=== PATIENT | male | born 1950 | race Caucasian/White ===

== ENCOUNTER 2017-02-13 23:59 | Inpatient (IN) | payer OTHER, MEDICARE ==
[~2017-02-13] VITALS: Ht 182.9 cm; Wt 73.7 kg
[~2017-02-13 23:59] MED LIST: ALAV10TA10 PO; ASPI-110 PO; ATOR1TAB18 PO; BACL10TA PO; CARB200T PO; FLUT1SPR5 EACH NARE; GABA800T PO; HYDR-3366 PO; MIRA33504 PO; MORP1TAB25 PO; OSCA200T PO; SODI325T PO; VENTAER INH; VITA100018 PO
[2017-02-14] VITALS (8 sets, daily range): BP systolic 111–147; BP diastolic 59–84; PULSE 81–121; RESP 12–18; TEMP 96–100.5; O2SAT 92–97
[2017-02-14] MEDS ORDERED: SODIUM CHLOR 0.9% 1000 ML INJ 1,000 ML IV SCH (00:15)
[2017-02-14] MEDS ORDERED: ONDANSETRON HCL 4 MG/2 ML VIAL IV PUSH ONE ×2 (00:15→12:00)
[2017-02-14] MEDS ORDERED: MORPHINE SULFATE 4 MG/ML INJ IV PUSH ONE (00:15)
--- NOTE | 2017-02-14 00:50 | RADRPT ---
EXAM DATE/TIME: 02/14/2017 00:31 [facility] COMPARISON: CHEST SINGLE AP, July 12, 2016, 15:37. INDICATIONS : Shortness of breath. MEDICAL HISTORY : Hypercholesterolemia. Hypertension. COPD SURGICAL HISTORY : Fusion, cervical. ENCOUNTER: Initial ACUITY: 1 day PAIN SCORE: 0/10 LOCATION: Bilateral chest FINDINGS: Portable AP views of the chest demonstrate a normal-sized cardiac silhouette with calcification of th e aorta. Multiple lines overlie the patient. There are coarse interstitial opacities bilaterally. No effusion, consolidation, or pneumothorax is identified. Bones and soft tissues demonstrate no acute f inding. There is rightward convex curvature of the thoracic spine. CONCLUSION: Stable interstitial prominence bilaterally. Otherwise, no acute finding is identified. Brodie Jenkins MD on February 14, 2017 at 0:47 Board Certified Radiologist. This report was verified electronically.
--- NOTE | 2017-02-14 00:58 | RADRPT ---
EXAM DATE/TIME: 02/14/2017 00:27 [facility] COMPARISON: No previous studies available for comparison. INDICATIONS : Right hip pain post fall. MEDICAL HISTORY : Hypercholesterolemia. Hypertension. COPD SURGICAL HISTORY : Fusion, cervical. ENCOUNTER: Initial ACUITY: 1 day PAIN SCORE: 8/10 LOCATION: Right pelvis FINDINGS: AP view of the pelvis with 2 views of the right hip demonstrate undermineralization of the bones. The re is a fracture of the right proximal femur in the bases cervical region and intertrochanteric regio n. The fragments are mildly displaced. No other fracture is identified. No soft tissue abnormality is visualized. CONCLUSION: There is an acute fracture in the basi-cervical/intertrochanteric region. Brodie Jenkins MD on February 14, 2017 at 0:56 Board Certified Radiologist. This report was verified electronically.
[2017-02-14 01:18] LABS: AUTOMATED NEUTROPHIL # 4.1 TH/MM3 (1.8-7.7); BASOPHIL # 0.1 TH/MM3 (0-0.2); BASOPHIL % 2.3 % (0.0-2.0); EOSINOPHIL # 0.2 TH/MM3 (0-0.4); EOSINOPHIL % 3.3 % (0.0-4.0); HEMATOCRIT 38.1 % (39.0-51.0); HEMO FLAGS DIFF FINAL; LYMPH % 18.8 % (9.0-44.0); LYMPHOCYTE # 1.1 TH/MM3 (1.0-4.8); MEAN CELL VOLUME 88.2 FL (80.0-100.0); MEAN CORPUSCULAR HEMOGLOBIN 30.4 PG (27.0-34.0); MEAN CORPUSCULAR HGB CONC 34.5 % (32.0-36.0); MONO % 8.3 % (0.0-8.0); NEUT % 67.3 % (16.0-70.0); PLATELET COUNT 180 TH/MM3 (150-450); RED BLOOD COUNT 4.33 MIL/MM3 (4.50-5.90); RED CELL DISTRIBUTION WIDTH 13.2 % (11.6-17.2); WHITE BLOOD COUNT 6.1 TH/MM3 (4.0-11.0)
[2017-02-14 01:29] LABS: APTT (PATIENT) 30.3 SEC (24.3-30.1); PROTHROMBIN TIME - PATIENT 11.4 SEC (9.8-11.6)
[2017-02-14] MEDS ORDERED: MELO-1 PO (01:32)
[2017-02-14] MEDS ORDERED: CLAR10CA3 PO (01:32)
--- NOTE | 2017-02-14 01:36 | PD ---
HPI Chief Complaint: Hip Injury Time Seen by Provider: 00:11 Travel History International Travel<30 days: No Contact w/Intl Traveler<30days: No Traveled to known affect area: No History of Present Illness HPI The patient is a 66 year old male who presents to the [facility] emergency department with a history of reportedly tripping and falling over a carpet, landing on his right side prior to arrival. The patient was brought in by ambulance services. The patient reports having right hip pain. The patient arrives awake and alert. He denies any head or losing consciousness. He denies having any neck pain, paresthesias, numbness, or weakness to his extremities. Upon ambulance services arrival the patient was noted to have O2 saturations of 89-90% on room air. The patient appeared to be in no acute distress. The patient does have a reported history of COPD. He reports that he last used his inhaler prior to arrival. The patient was placed on 2 L nasal cannula O2 prior to her arrival and his O2 saturation on arrival is 97%. On review of systems, the patient denies having any fevers or chills, worsening cough or congestion, neck pain, chest pain, shortness of breath, abdominal pain , vomiting, diarrhea, urinary symptoms, or new neurologic symptoms. The patient reports that he gets around with the use of a cane to steady his gait. The patient reports that he does take a low-dose aspirin daily. PFS Past Medical History Narrative Medical The patient's past medical history is significant for degenerative disc disease , COPD, hypertension, hyperlipidemia, trigeminal neuralgia. Hx Anticoagulant Therapy: No Arthritis: Yes Anxiety: Yes Depression: No Cardiovascular Problems: Yes (HTN) High Cholesterol: Yes COPD: Yes Endocrine: No Genitourinary: No Hypertension: Yes Immune Disorder: No Musculoskeletal: Yes Neurologic: Yes (trigeminal neuralgia) Psychiatric: Yes Respiratory: Yes Sleep Apnea: No Past Surgical History Narrative Surgical The patient's past surgical history is significant for a pilonidal cyst removal , spinal surgery 5. Body Medical Devices: SCREWS IN THE SPINE Social History Alcohol Use: No Tobacco Use: Yes (half a pack per day) Substance Use: No Allergies-Medications (Allergen,Severity, Reaction): Coded Allergies: No Known Allergies (Unverified , 07/12/16) Reported Meds & Prescriptions Reported Meds & Active Scripts Active Reported Meloxicam 15 Mg Tab 15 Mg PO DAILY Claritin (Loratadine) 10 Mg Cap 10 Mg PO DAILY Flonase Nasal [place] (Fluticasone Nasal [place]) 50 Mcg/Act [place] 2 Puff EACH NARE HS Ventolin Hfa 18 GM Inh (Albuterol Sulfate) 90 Mcg/Act Aer 2 Puff INH Q4H PRN Carbamazepine 200 Mg Tab 400 Mg PO BID Gabapentin 800 Mg Tab 800 Mg PO QID Atorvastatin (Atorvastatin Calcium) 80 Mg Tab 80 Mg PO HS Aspirin 81 (Aspirin) 81 Mg Tabdr 81 Mg PO HS Baclofen 10 Mg Tab 10 Mg PO QID Carbamazepine 200 Mg Tab 200 Mg PO HS [place] (Hydrocodone-Acetaminophen) 10-325 Mg Tab 1 Tab PO Q4HR PRN Review of Systems Except as stated in HPI: all other systems reviewed are Neg General / Constitutional: No: Fever Eyes: No: Visual changes HENT: No: Headaches Cardiovascular: Positive: Dyspnea on exertion (chronic dyspnea on exertion related to COPD), No: Chest Pain or Discomfort Respiratory: No: Shortness of Breath Gastrointestinal: No: Nausea, Vomiting, Diarrhea, Abdominal Pain Genitourinary: No: Dysuria Musculoskeletal: Positive: Myalgias, Arthralgias, Limited ROM, Pain Skin: No Rash Neurologic: Positive: Weakness (generalized weakness over the last week), No: Focal Abnormalities, Headache, Change in Mentation, Slurred Speech, Sensory Disturbance Psychiatric: No: Depression Endocrine: No: Polydipsia Hematologic/Lymphatic: No: Easy Bruising Physical Exam Narrative General: The patient is a well-developed well-nourished male in no acute distress. Head and Neck exam: Head is normocephalic atraumatic. Eyes: EOMI, pupils are equal round and reactive to light. Nose: Midline septum with pink mucous membranes Mouth: Dentition unremarkable. Moist mucus membranes. Posterior oropharynx is not erythematous. No tonsillar hypertrophy. Uvula midline. Airway patent. Neck: No palpable lymphadenopathy. No nuchal rigidity. No thyromegaly. Cardiovascular: Regular rate and rhythm without murmurs, gallops, or rubs. No spinous process tenderness to palpation. No step-off or crepitus. No erythema or ecchymosis. Lungs: Clear to auscultation bilaterally. No wheezes, rhonchi, or rales. Abdomen: Soft, without tenderness to palpation in all 4 quadrants of the abdomen. No guarding, rebound, or rigidity. Normal bowel sounds are audible. No tenderness on palpation of McBurney's point. Negative Vancleve sign. Extremities: No clubbing, cyanosis, or edema. 2+ pulses in all 4 extremities. The area of interest is the right hip and leg. The patient has no shortening. The patient' s right hip is slightly externally rotated. The patient has no pain in his knee , ankle, or foot. The patient has intact sensation over his toes. The patient has full range of motion of his knee, ankle, and foot. The patient does however have pain with internal and external rotation of his right hip. Back: No spinous process tenderness to palpation. No step-off or crepitus. No costovertebral angle tenderness to palpation. Neurologic Exam: Grossly nonfocal. Skin Exam: No rash noted. Intact skin that is warm and dry. Data Data Last Documented VS Vital Signs Date Time Temp Pulse Resp B/P Pulse Ox O2 Delivery O2 Flow Rate FiO2 02/14/17 01:14 18 97 Nasal Cannula 2 02/14/17 00:04 98.4 81 128/59 Orders Electrocardiogram (02/14/17 00:11) Complete Blood Count With Diff (02/14/17:) Comprehensive Metabolic Panel (02/14/17:11) Creatine Kinase (Cpk) (02/14/17:11) Ckmb (Isoenzyme) Profile (02/14/17:11) Troponin I (02/14/17:11) B-Type Natriuretic Peptide (02/14/17:11) Prothrombin Time / Inr (Pt) (02/14/17:11) Act Partial Throm Time (Ptt) (02/14/17:11) Lipase (02/14/17:11) Urinalysis - C+S If Indicated (02/14/17:11) Magnesium (Mg) (02/14/17:11) Chest, Single Ap (02/14/17:11) Iv Access Insert/Monitor (02/14/17:11) Ecg Monitoring (02/14/17:11) Oximetry (02/14/17:11) Sodium Chlor 0.9% 1000 Ml Inj (Ns 1000 M (02/14/17 00:15) Morphine Inj (Morphine Inj) (02/14/17 00:15) Ondansetron Inj (Zofran Inj) (02/14/17 00:15) Hip, Uni(Ap&Lat) W Ap Pelvis (02/14/17 ) CKMB (02/14/17 00:20) CKMB% (02/14/17 00:20) Labs Laboratory Tests Test 02/14/17 00:20 White Blood Count 6.1 TH/MM3 Red Blood Count 4.33 MIL/MM3 Hemoglobin 13.2 GM/DL Hematocrit 38.1 % Mean Corpuscular Volume 88.2 FL Mean Corpuscular Hemoglobin 30.4 PG Mean Corpuscular Hemoglobin 34.5 % Concent Red Cell Distribution Width 13.2 % Platelet Count 180 TH/MM3 Mean Platelet Volume 8.0 FL Neutrophils (%) (Auto) 67.3 % Lymphocytes (%) (Auto) 18.8 % Monocytes (%) (Auto) 8.3 % Eosinophils (%) (Auto) 3.3 % Basophils (%) (Auto) 2.3 % Neutrophils # (Auto) 4.1 TH/MM3 Lymphocytes # (Auto) 1.1 TH/MM3 Monocytes # (Auto) 0.5 TH/MM3 Eosinophils # (Auto) 0.2 TH/MM3 Basophils # (Auto) 0.1 TH/MM3 CBC Comment DIFF FINAL Differential Comment Prothrombin Time 11.4 SEC Prothromb Time International 1.0 RATIO Ratio Activated Partial 30.3 SEC Thromboplast Time Sodium Level 130 MEQ/L Potassium Level 3.6 MEQ/L Chloride Level 91 MEQ/L Carbon Dioxide Level 29.9 MEQ/L Anion Gap 9 MEQ/L Blood Urea Nitrogen 7 MG/DL Creatinine 0.70 MG/DL Estimat Glomerular Filtration 114 ML/MIN Rate Random Glucose 91 MG/DL Calcium Level 8.5 MG/DL Magnesium Level 2.0 MG/DL Total Bilirubin 0.4 MG/DL Aspartate Amino Transf 30 U/L (AST/SGOT) Alanine Aminotransferase 32 U/L (ALT/SGPT) Alkaline Phosphatase 101 U/L Total Creatine Kinase 364 U/L Troponin I LESS THAN 0.02 NG/ML Total Protein 6.1 GM/DL Albumin 3.6 GM/DL Lipase 54 U/L MDM Medical Decision Making Medical Screen Exam Complete: Yes Emergency Medical Condition: Yes Medical Record Reviewed: Yes Differential Diagnosis Right hip fracture, versus dislocation, versus pelvis fracture Narrative Course During the course of the patients emergency department visit, the patients history, examination, and differential diagnosis were reviewed with the patient. The patient had IV access obtained and blood work sent for analysis. The patient was placed on a equipment monitor phototypesetting with oximetry and blood pressure monitoring. The patient had an ECG done on arrival that shows a sinus rhythm heart rate of 81, no acute ST segment elevation or depression, QRS duration is 125 ms, QTC 403 ms. The patient was initially provided morphine 2 mg IV for pain, Zofran 4 mg IV for nausea, normal saline at 82 mL/h was started. The patients laboratory studies were reviewed and remarkable for white count of 6.1, hemoglobin 13.2, platelets 180 with 8.3 monocytes, INR is 1.0, PT 11.4, PTT 30.3 Radiology studies were reviewed and remarkable for a right intertrochanteric hip fracture, chest x-ray shows stable interstitial prominence bilaterally, otherwise no acute findings. A call was then placed out to the orthopedic physician on-call regarding this patient's case. The patients results were discussed with the patient, including the plan of care. I explained that further testing and/ or monitoring is indicated based on the patients history, examination, and/ or laboratory findings. Therefore, I recommended admission for additional evaluation. The patient expressed understanding and was agreeable with this plan. The patient was admitted to the hospital in stable condition and sent to a bed under the care of the [facility] hospitalist service. Physician Communication Physician Communication The patient's case was discussed with Dr. Katz at 1:35 AM. He did agree to see the patient in consultation. He requested that the patient be made nothing by mouth and admitted to the hospitalist service. The patient's case was discussed with Dr. Dee who did agree to admit the patient for further evaluation and treatment at this time. Diagnosis Primary Impression: Intertrochanteric fracture of right hip Qualified Code: S72.141A - Closed displaced intertrochanteric fracture of right femur, initial encounter Admitting Information Admitting Physician Requests: Samina Whyte MD Feb 14, 2017 01:36
[2017-02-14 01:40] LABS: ANION GAP 9 MEQ/L (5-15); AST (GOT) 30 U/L (15-37); BICARBONATE 29.9 MEQ/L (21.0-32.0); BLOOD UREA NITROGEN 7 MG/DL (7-18); CHLORIDE 91 MEQ/L (98-107); GLOMERULAR FILTRATION RATE 114 ML/MIN (>89); POTASSIUM 3.6 MEQ/L (3.5-5.1); SODIUM (NA) 130 MEQ/L (136-145)
[2017-02-14 01:47] LABS: ALKALINE PHOSPHATASE 101 U/L (45-117); ALT (GPT) 32 U/L (12-78); CREATINE KINASE 364 U/L (39-308); TOTAL BILIRUBIN ADULT 0.4 MG/DL (0.2-1.0)
[2017-02-14 02:00] LABS: CKMB 7.7 NG/ML (0.5-3.6)
[2017-02-14] MEDS ORDERED: NALOXONE HCL 0.4 MG/ML AMP IV PRN (02:15)
[2017-02-14] MEDS ORDERED: SODIUM CHLORIDE 0.9% FLUSH 10 ML FLUSH IV FLUSH PRN (02:15)
[2017-02-14] MEDS: MORPHINE SULFATE 4 MG/ML INJ IV PUSH PRN ×2 (02:36→04:24)
[2017-02-14 04:26] LABS: GLUCOSE,URINE NEG (NEG); KETONE, URINE NEG (NEG); NITRITE,URINE NEG (NEG); PH, URINE 6.5 (5.0-8.5); URINE COLOR YELLOW (YELLW/STRAW)
[2017-02-14 04:29] LABS: BLOOD, URINE TRACE (NEG)
[2017-02-14 04:30] LABS: CALCIUM OXALATE CRYSTALS,URINE RARE /hpf; COMMENT (UR) CULT NOT INDICATED; CULTURE IF INDICATED CULT NOT INDICATED; MUCUS URINE FEW /lpf (OCC)
[2017-02-14] MEDS ORDERED: POVIDONE IODINE 5% (ANTISEPSIS KIT) 4 APPLICATIONS EACH NARE PRN (04:30)
[2017-02-14] MEDS ORDERED: CHLORHEXIDINE GLUCONATE 2 % 1 PACK (2 CLOTHS) TOPICAL PRN (04:30)
[2017-02-14] MEDS ORDERED: INSULIN HUMAN REGULAR 1,000 UNITS/10 ML VIAL SQ PRN (04:30)
[2017-02-14] MEDS ORDERED: SODIUM CHLORID 0.9% 500 ML IV PRN (04:30)
[2017-02-14] MEDS ORDERED: LACTATED RINGER'S 1000 ML IV PRN (04:30)
--- NOTE | 2017-02-14 05:19 | HHI.HP ---
[facility] Ad[facility] Diagnosis Right hip intertrochanteric fx Diagnoses: (1) Intertrochanteric fracture of right hip Chief Complaint: Fall at home with right hip pain Travel History International Travel<30 Days: No Contact w/Intl Traveler <30 Da: No Traveled to Known Affected Are: No History of Present Illness The patient was at home and turned around and fell down. He reports that he spent about an hour on the floor before he was able to call for help - right hip was painful Denies chest pain, shortness of breath, dizziness, palpitations, fever, n/v/d, dysuria, hematuria, black stool or red stool. Denies history of anesthesia complications Review of Systems Except as stated in HPI: all other systems reviewed are Neg Past Family Social History Past Medical History Hypertension COPD - not oxygen dependent Denies diabetes mellitus, CAD, aortic aneurysm, liver problems like hepatitis or cirrhosis, kidney problems, DVT, PE, CVA, seizures, thyroid problems, cancers , or prostate issues . Past Surgical History Oral surgery . Reported Medications Reported Meds & Active Scripts Active Reported Meloxicam 15 Mg Tab 15 Mg PO DAILY Claritin (Loratadine) 10 Mg Cap 10 Mg PO DAILY Flonase Nasal [place] (Fluticasone Nasal [place]) 50 Mcg/Act [place] 2 Puff EACH NARE HS Ventolin Hfa 18 GM Inh (Albuterol Sulfate) 90 Mcg/Act Aer 2 Puff INH Q4H PRN Carbamazepine 200 Mg Tab 400 Mg PO BID Gabapentin 800 Mg Tab 800 Mg PO QID Atorvastatin (Atorvastatin Calcium) 80 Mg Tab 80 Mg PO HS Aspirin 81 (Aspirin) 81 Mg Tabdr 81 Mg PO HS Baclofen 10 Mg Tab 10 Mg PO QID Carbamazepine 200 Mg Tab 200 Mg PO HS [place] (Hydrocodone-Acetaminophen) 10-325 Mg Tab 1 Tab PO Q4HR PRN . Allergies: Coded Allergies: No Known Allergies (Unverified , 07/12/16) Active Ordered Medications Current Medications Sodium Chloride (NS 1000 ml Inj) 1,000 ml @ 84 mls/hr [id number] IV Last administered on 02/14/17 01:16; Start 02/14/17 at 00:15 Morphine Sulfate (Morphine Inj) 2 mg ONCE ONCE IV PUSH Last administered on 01:16; Start 02/14/17 at 00:15; Stop 02/14/17 at 00:16; Status DC Ondansetron HCl (Zofran Inj) 4 mg ONCE ONCE IV PUSH Last administered on 01:16; Start 02/14/17 at 00:15; Stop 02/14/17 at 00:16; Status DC Sodium Chloride (NS Flush) 2 ml UNSCH PRN IV FLUSH FLUSH AFTER USING IV ACCESS ; Start 02/14/17 at 02:15 Sodium Chloride (NS Flush) 2 ml BID IV FLUSH ; Start 02/14/17 at 09:00 Naloxone HCl (Narcan Inj) 0.4 mg UNSCH PRN IV SEE LABEL COMMENTS; Start at 02:15 Morphine Sulfate 2 mg 2 mg Q3H PRN IV PUSH pain >5 Last administered on 04:24; Start 02/14/17 at 02:15 Lactated Ringer's 1,000 ml @ 30 mls/hr Q24H PRN IV SEE LABEL COMMENTS; Start at 04:30; Stop 02/17/17 at 04:29 Sodium Chloride (NS 500 ml Inj) 500 ml @ 30 mls/hr [id number] PRN IV SEE LABEL COMMENTS; Start 02/14/17 at 04:30; Stop 02/17/17 at 04:29 Povidone Iodine (Betadine 5% Antisepsis Kit) 1 applic DELIVERY TABLE OPERATOR PRN EACH NARE SEE LABEL COMMENTS; Start 02/14/17 at 04:30; Stop 02/17/17 at 04:29 Chlorhexidine Gluconate (Chlorhexidine 2% Cloth) 3 pack DELIVERY TABLE OPERATOR PRN TOPICAL SEE LABEL COMMENTS; Start 02/14/17 at 04:30; Stop 02/17/17 at 04:29 Insulin Human Regular (NovoLIN R INJ) See Protocol Table ... DELIVERY TABLE OPERATOR PRN SQ SEE PROTOCOL TABLE; Start 02/14/17 at 04:30; Stop 02/17/17 at 04:29 . Family History Cancer Son from complications relating to ALS MS . Social History Tobacco: smokes 1 1/2 PPD Alcohol: denies Illicit drugs: denies . Physical Exam Vital Signs Vital Signs Date Time Temp Pulse Resp B/P Pulse Ox O2 Delivery O2 Flow Rate FiO2 02/14/17 04:50 97.9 114 18 147/83 92 02/14/17 03:30 Nasal Cannula 2.00 02/14/17 01:14 18 97 Nasal Cannula 2 02/14/17 00:10 98 Nasal Cannula 2 02/14/17 00:04 98.4 81 18 128/59 97 Physical Exam GENERAL: This is a pale-appearing male patient, in no apparent distress. SKIN: No rashes, ecchymoses or lesions. Cool and dry. HEAD: Atraumatic. Normocephalic. EYES: No scleral icterus. No injection or drainage. ENT: Nose without bleeding, purulent drainage. NECK: Trachea midline. No JVD or lymphadenopathy. CARDIOVASCULAR: Regular rate and rhythm without murmurs, gallops, or rubs. RESPIRATORY: Clear to auscultation. Breath sounds equal bilaterally. No wheezes , rales, or rhonchi. GASTROINTESTINAL: Abdomen soft, non-tender, nondistended. No guarding. MUSCULOSKELETAL: Extremities without clubbing, cyanosis, or edema. No calf tenderness. NEUROLOGICAL: Awake and alert. Motor and sensory grossly within normal limits. Normal speech. . . Laboratory Laboratory Tests Test 02/14/17 02/14/17 00:20 03:35 White Blood Count 6.1 Red Blood Count 4.33 Hemoglobin 13.2 Hematocrit 38.1 Mean Corpuscular Volume 88.2 Mean Corpuscular Hemoglobin 30.4 Mean Corpuscular Hemoglobin 34.5 Concent Red Cell Distribution Width 13.2 Platelet Count 180 Mean Platelet Volume 8.0 Neutrophils (%) (Auto) 67.3 Lymphocytes (%) (Auto) 18.8 Monocytes (%) (Auto) 8.3 Eosinophils (%) (Auto) 3.3 Basophils (%) (Auto) 2.3 Neutrophils # (Auto) 4.1 Lymphocytes # (Auto) 1.1 Monocytes # (Auto) 0.5 Eosinophils # (Auto) 0.2 Basophils # (Auto) 0.1 CBC Comment DIFF FINAL Differential Comment Prothrombin Time 11.4 Prothromb Time International 1.0 Ratio Activated Partial 30.3 Thromboplast Time Sodium Level 130 Potassium Level 3.6 Chloride Level 91 Carbon Dioxide Level 29.9 Anion Gap 9 Blood Urea Nitrogen 7 Creatinine 0.70 Estimat Glomerular Filtration 114 Rate Random Glucose 91 Calcium Level 8.5 Magnesium Level 2.0 Total Bilirubin 0.4 Aspartate Amino Transf 30 (AST/SGOT) Alanine Aminotransferase 32 (ALT/SGPT) Alkaline Phosphatase 101 Total Creatine Kinase 364 Creatine Kinase MB 7.7 Creatine Kinase MB % 2.1 Troponin I LESS THAN 0.02 B-Type Natriuretic Peptide 25 Total Protein 6.1 Albumin 3.6 Lipase 54 Urine Color YELLOW Urine Turbidity CLEAR Urine pH 6.5 Urine Specific [place] 1.008 Urine Protein NEG Urine Glucose (UA) NEG Urine Ketones NEG Urine Occult Blood TRACE Urine Nitrite NEG Urine Bilirubin NEG Urine Urobilinogen 1.0 Urine Leukocyte Esterase NEG Urine RBC 11 Urine WBC 1 Urine Calcium Oxalate Crystals RARE Urine Mucus FEW Microscopic Urinalysis Comment CULT NOT INDICATED Result Diagram: 02/14/17 0020 02/14/17 0020 Imaging Last Impressions Chest X-Ray 02/14/17 0011 Signed Impressions: Service Date/Time: Tuesday, February 14, 2017 00:31 - CONCLUSION: Stable interstitial prominence bilaterally. Otherwise, no acute finding is identified. Brodie Jenkins MD Hip and Pelvis X-Ray 02/14/17 0000 Signed Impressions: Service Date/Time: Tuesday, February 14, 2017 00:27 - CONCLUSION: There is an acute fracture in the basi-cervical/intertrochanteric region. Brodie Jenkins MD . Assessment and Plan Problem List: (1) Intertrochanteric fracture of right hip ICD Code: S72.141A Status: Acute Assessment and Plan 66 y/o who presented following a fall at home and is found to have a right intertrochanteric hip fracture and hyponatremia Right hip fracture - intertrochanteric - Hip/Pelvis XRay with acute fracture in the basi-cervical/intertrochanteric region - consult orthopedic surgery - NPO - Bed rest - Dilaudid 0.5 mg IV q3h PRN Hyponatremia - Sodium 130 on admission - s/w sodium levels on prior visits - NS at 84 cc/hr - recheck bmp in a.m and follow trends in sodium levels DVT prophylaxis - SCDs/TEDs . This note was transcribed by keke [Denise Mendoza]. I, Dr. Martha Dee personally performed the history, physical exam, and medical decision making; and confirmed the accuracy of the information in the transcribed note. Authenticated by Dr. Martha Dee on 02/14/17 0550 Discussed Condition With ER physician, RN, and patient . Physician Certification 2 Midnight Certification Type: Admission for Inpatient Services Order for Inpatient Services The services are ordered in accordance with Medicare regulations or non- Medicare payer requirements, as applicable. In the case of services not specified as inpatient-only, they are appropriately provided as inpatient services in accordance with the 2-midnight benchmark. Estimated LOS (days): 3 days is the estimated time the patient will need to remain in the hospital, assuming treatment plan goals are met and no additional complications. Post-Hospital Plan: Not yet determined Problem Qualifiers (1) Intertrochanteric fracture of right hip: Qualified Code: S72.141A - Closed displaced intertrochanteric fracture of right femur, initial encounter Denise Mendoza Feb 14, 2017 05:19 Martha Dee MD Feb 21, 2017 02:26
[2017-02-14] MEDS ORDERED: HYDROmorphone HCL PF 1 MG/ML VIAL IV PUSH PRN (06:00)
[2017-02-14] MEDS ORDERED: GENTAMICIN SULFATE 80 MG/2 ML VIAL ONE (07:01)
[2017-02-14] MEDS ORDERED: ACETAMINOPHEN 1000 MG/100 ML VIAL IV ONE (07:09)
[2017-02-14] MEDS ORDERED: MIDAZOLAM HCL 2 MG/2 ML VIAL ONE (07:09)
[2017-02-14] MEDS ORDERED: DEXAMETHASONE SOD PHOS 4 MG/ML VIAL ONE (07:10)
[2017-02-14] MEDS ORDERED: SODIUM CHLOR 0.9% 250 ML INJ 250 ML ONE (07:28)
[2017-02-14] MEDS ORDERED: ceFAZolin 2 GM PREMIX 50 ML ONE (07:28)
[2017-02-14] MEDS ORDERED: VANCOMYCIN HCL 1000 MG VIAL ONE (07:28)
--- NOTE | 2017-02-14 08:11 | PD.OP ---
cc: Alon Brambila MD Operative Report Date of Surgery: Feb 14, 2017 Preoperative Diagnosis: Right hip intertrochanteric fracture Postoperative Diagnosis: Procedure: Right hip reduction and intramedullary nail fixation Anesthesia: Gen. Surgeon: Alon Brambila Windows Vmware Engineer(s): ODIN Del Rio PA-C The surgical procedure was assisted by my physician advertising assistant manager. My P.A. presence was necessary throughout this case for the manipulation and positioning of the surgical extremity. My P.A. was assisting me throughout the duration of this procedure. The skill set of a physician advertising assistant manager was medically necessary to complete this procedure. During the surgical case the quality control tech was working at the back table and the physician advertising assistant manager was directly assisting me. Operation and Findings: Implants used: [11]mm 130 Synthes TFNA short troch nail Plan of activity: Weight-bear as tolerated Patient was seen and evaluated preoperatively. The patient has significant hip pain from intertrochanteric hip fracture. The risk and benefits of surgery were discussed in depth with the patient to include bleeding infection nonunion malunion and need for hip replacement painful hardware as well as medical competitions including but not stroke heart attack and . Informed consent was obtained. Operative site was marked. Patient was brought to the operating room and placed on fracture table. IV sedation was administered by anesthesiologist. Timeout procedure was performed. Hip and leg were prepped with alcohol followed by DuraPrep and draped in the usual sterile fashion. IV antibiotics were given prior to incision. Procedure began with reduction of fracture. Traction was applied. The leg was manipulated to achieve reduction. Excellent reduction was achieved. Fluoroscopy was used to confirm reduction. A three inch incision was made proximal to the trochanter. Subcutaneous tissue was dissected bluntly. Guidepin was placed at the tip of the trochanter and advanced into the femoral canal. Fluoroscopy confirmed appropriate guidepin placement. A opening reamer was placed over the guidepin. The Synthes TFNA nail was attached to the insertion handle. Nail was now placed through the tip of the trochanter into the femoral canal. Fluoroscopy confirmed appropriate nail placement. A second incision was made over the lateral thigh. Cannulas were placed through the insertion handle down to the femur. Guidepin was now placed through the femoral nail into the center of the femoral head. Fluoroscopy confirmed appropriate guidepin placement. Screw length was measured. Cannulated drill was placed over the guidepin. Appropriate length lag screw was now placed. Traction was released and compression was applied. The set screw was now tightened in dynamic mode. Using the insertion handle as a guide a distal interlocking screw was drilled and placed. Final fluoroscopy revealed well aligned fracture with well-placed hardware. Incision was closed with 3-0 Vicryl and sade. Sterile dressings were applied. Patient was awakened and transferred to recovery room. Alon Brambila MD Feb 14, 2017 08:11
[2017-02-14] MEDS ORDERED: SODIUM CHLORIDE 0.9% FLUSH 5 ML FLUSH IVF PRN (08:15)
[2017-02-14] MEDS ORDERED: DO NOT ADM ANY ANTICOAGULANT DRUGS PRN (08:24)
[2017-02-14] MEDS ORDERED: fentaNYL CITRATE 250 MCG/5 ML AMP ONE (08:56)
[2017-02-14] MEDS ORDERED: ERGOCALCIFEROL (VIT D2) 50,000 UNIT CAP PO ONE (09:00)
[2017-02-14] MEDS ORDERED: SODIUM CHLORIDE 0.9% FLUSH 10 ML FLUSH IV FLUSH SCH (09:00)
[2017-02-14] MEDS ORDERED: diphenhydrAMINE HCL 25 MG CAP PO PRN (09:00)
[2017-02-14] MEDS: CALCIUM/VITAMIN D 250 MG/125 U TAB PO SCH ×3 (09:00→17:41)
[2017-02-14] MEDS ORDERED: MORPHINE SULFATE 4 MG/ML INJ IV PUSH PRN (09:00)
--- NOTE | 2017-02-14 09:26 | HHI.PR ---
Subjective Remarks F/U Right femur fracture. Patient with minimal pain. Discussed with RN, patient with low-grade temperature and tachycardia. Denies palpitations, cough , UTI symptoms and diarrhea. Objective Vitals Vital Signs Date Time Temp Pulse Resp B/P Pulse Ox O2 Delivery O2 Flow Rate FiO2 02/14/17 09:00 93 14 129/77 100 Nasal Cannula 3 02/14/17 08:45 98 14 130/80 100 Nasal Cannula 3 02/14/17 08:27 98.0 96 14 131/76 100 Nasal Cannula 3 02/14/17 04:50 97.9 114 18 147/83 92 02/14/17 03:30 Nasal Cannula 2.00 02/14/17 01:14 18 97 Nasal Cannula 2 02/14/17 00:10 98 Nasal Cannula 2 02/14/17 00:04 98.4 81 18 128/59 97 I/O 02/13/17 02/13/17 02/13/17 02/14/17 02/14/17 02/14/17 07:00 15:00 23:00 07:00 15:00 23:00 Intake Total 0 ml 600 ml Output Total 500 ml 50 ml Balance -500 ml 550 ml Intake Oral 0 ml Other 600 ml Output Urine Total 500 ml 0 ml Estimated Blood Loss 50 ml # Bowel Movements 0 Result Diagram: 02/14/17 0020 02/14/17 0020 Imaging Last Impressions Chest X-Ray 02/14/17 0011 Signed Impressions: Service Date/Time: Tuesday, February 14, 2017 00:31 - CONCLUSION: Stable interstitial prominence bilaterally. Otherwise, no acute finding is identified. Brodie Jenkins MD Hip and Pelvis X-Ray 02/14/17 0000 Signed Impressions: Service Date/Time: Tuesday, February 14, 2017 00:27 - CONCLUSION: There is an acute fracture in the basi-cervical/intertrochanteric region. Brodie Jenkins MD Objective Remarks Well-developed, well-nourished in no distress Skin warm no rashes Normocephalic atraumatic HEENT pupils reactive to light Equal breath sounds clear to auscultation Regular rate and rhythm Abdomen soft nontender Extremities dry dressing right hip no edema Alert and oriented nonfocal Procedures Right hip reduction and intramedullary nail fixation A/P Problem List: (1) Intertrochanteric fracture of right hip ICD Code: S72.141A Status: Acute Assessment and Plan 66 y/o who presented following a fall at home and is found to have a right intertrochanteric hip fracture and hyponatremia Right hip fracture - intertrochanteric s/p repair POD day zero. Stable continue postoperative care with PT, wound care, incentive spirometry, pain management with Lortab and IV morphine and DVT prophylaxis with Lovenox Hyponatremia. This is chronic and likely related to Tegretol. Chest x-ray and previous head CT without acute findings. Asymptomatic. Continue to monitor Trigeminal neuralgia. Continue Tegretol COPD. Stable continue MDI Hypertension. Stable monitor with as needed clonidine and IV Vasotec Hyperlipidemia on statins. LFTs within normal limits Low-grade fever with tachycardia likely secondary to atelectasis. Incentive spirometry. We'll continue to monitor DVT prophylaxis - SCDs/TEDs and Lovenox . Discharge Planning DC when cleared by orthopedic surgery Problem Qualifiers (1) Intertrochanteric fracture of right hip: Qualified Code: S72.141A - Closed displaced intertrochanteric fracture of right femur, initial encounter Dwayne Carlin MD Feb 14, 2017 09:26
[2017-02-14] MEDS ORDERED: cloNIDine HCL 0.1 MG TAB PO PRN (09:30)
[2017-02-14] MEDS ORDERED: ACETAMINOPHEN 325 MG TAB PO PRN (09:30)
[2017-02-14] MEDS ORDERED: ENALAPRILAT 1.25 MG/ML VIAL IV PRN (09:30)
--- NOTE | 2017-02-14 09:31 | MB ---
cc: RICHELLE SIN DATE OF CONSULTATION: 02/14/2017 REASON FOR CONSULTATION Right hip intertrochanteric fracture. HISTORY OF PRESENT ILLNESS Humberto is a 66-year-old male who was at home. He turned around and lost his balance. He fell on his right hip. He had immediate right hip pain. He denies any dizziness, syncope or loss of consciousness. He states he has had some poor balance recently and has had several falls. He was unable to stand or ambulate. He presented to the emergency room where x-rays revealed a right hip intertrochanteric fracture. He is currently awake and alert on the orthopedic floor. His only complaint is his right hip. Pain is worse with movement. PAST MEDICAL HISTORY ILLNESSES 1. Hypertension. 2. COPD. SURGERIES Oral surgery. MEDICATIONS 1. Meloxicam. 2. Claritin. 3. Flonase. 4. Ventolin. 5. Carbamazepine. 6. Gabapentin. 7. Atorvastatin. 8. Aspirin. 9. Baclofen. 10.[place]. ALLERGIES No known drug allergies. FAMILY HISTORY Positive for ALS in his son. SOCIAL HISTORY The patient smokes a 1-1/2 packs a day. Denies alcohol or drug use. REVIEW OF SYSTEMS The patient denies headache, visual changes, neck pain, chest pain, shortness of breath, abdominal pain, nausea, vomiting or recent weight loss. He complains of right hip pain. Pain is worse with movement. PHYSICAL EXAMINATION GENERAL: The patient is a thin 66-year-old male in no acute distress. He appears older than his stated age. He is awake and alert. VITAL SIGNS: Temperature 97.9, pulse 114, respirations 18, blood pressure 147/83. O2 sat is 92% on two liters nasal cannula. HEAD: The patient is normocephalic. Pupils are equal. NECK: Soft, nontender. Trachea is midline. ABDOMEN: Soft, nontender, nondistended. EXTREMITIES: Examination of bilateral upper extremities reveals no pain with shoulder, elbow or wrist motion. He has intact sensation in all fingers. He has good capillary refill in all fingers. Enrober strength is +5. Examination of left leg reveals no pain with hip, knee or ankle motion. Skin is intact. Dorsalis pedis pulse is palpable. Sensation is intact. Examination of right leg reveals pain with any hip motion. He has minimal tenderness around his knee, tibia and ankle. Skin is intact. Dorsalis pedis pulse is palpable. X-RAYS X-rays of the pelvis and right hip were reviewed. X-rays reveal a displaced right hip intertrochanteric fracture. IMPRESSION 1. Smoking dependence. 2. Hypertension. 3. COPD. 4. Right hip intertrochanteric fracture. PLAN The treatment options were discussed with the patient. At this point I would recommend reduction and intramedullary nail fixation of right hip. The risks of surgery include bleeding, infection, injuries to arteries, nerves and blood vessels, nonunion, malunion, painful hardware as well as medical complications including blood clot, stroke, heart attack and . All questions were answered. I will plan on surgery today. A mid-level provider in my office (nurse practitioner or physician itinerant teacher assistant) may see this patient on follow-up visits and continue to implement the objectives of this plan including: Starting or adjusting medications, injections , cast application, orthotics, brace application, physical therapy, radiological studies (including x-ray, MRI, CT, ultrasound, bone scan), vascular studies, neurologic studies, specialist consultation, and proceeding with surgical management, as appropriate. MD AIRAM Montano/DION /8:14 AM /9:17 AM [email or web address]
[2017-02-14] MEDS ORDERED: ALBUTEROL SULFATE 90 MCG/ACT HFA 18 GM INHALER INH PRN (10:15)
[2017-02-14] MEDS: CHOLECALCIFEROL (VIT D3) 5000 UNIT CAP PO SCH (11:16)
[2017-02-14] MEDS: SODIUM CHLORIDE 0.9% FLUSH 5 ML FLUSH IVF SCH ×2 (11:17→20:48)
--- NOTE | 2017-02-14 11:44 | RADRPT ---
EXAM DATE/TIME: 02/14/2017 08:01 [facility] COMPARISON: No previous studies available for comparison. INDICATIONS : ORIF right hip in OR. MEDICAL HISTORY : None. SURGICAL HISTORY : None. ENCOUNTER: Initial ACUITY: 1 day PAIN SCORE: Non-responsive. LOCATION: Right hip FINDINGS: Anatomic alignment of phalanx with nail on the right. CONCLUSION: Anatomic alignment. Mani Zaman MD FACR on February 14, 2017 at 11:42 Board Certified Radiologist. This report was verified electronically.
[2017-02-14] MEDS ORDERED: PROPOFOL 200 MG/20 ML AMP IV ONE (12:00)
[2017-02-14] MEDS ORDERED: PHENYLEPH/NS 1000 MCG/10 ML SYR IV ONE (12:00)
[2017-02-14] MEDS ORDERED: ePHEDrine/NS 25 MG/5 ML SYR IV ONE (12:00)
[2017-02-14] MEDS: GABAPENTIN 400 MG CAP PO SCH ×3 (14:53→20:47)
[2017-02-14] MEDS: BACLOFEN 10 MG TAB PO SCH ×3 (14:53→20:47)
[2017-02-14] MEDS: ACETAMINOPHEN/HYDROcodone 325 MG/7.5 MG TAB PO PRN (14:58)
[2017-02-14] MEDS: carBAMazepine 200 MG TAB PO SCH ×2 (17:41→20:47)
[2017-02-14] MEDS: LACTULOSE SYRUP 20 GM/30 ML CUP PO PRN (18:40)
[2017-02-14] MEDS: MAGNESIUM HYDROXIDE SUSP 30 ML CUP PO PRN (18:40)
[2017-02-14] MEDS: ATORVASTATIN 80 MG TAB PO SCH (20:47)
[2017-02-14] MEDS: DOCUSATE SODIUM 50 MG/SENNA 8.6 MG TAB PO SCH (20:48)
[2017-02-15] VITALS (8 sets, daily range): BP systolic 103–118; BP diastolic 66–72; PULSE 90–109; RESP 17–19; TEMP 96–99.4; O2SAT 95–100
[2017-02-15] MEDS ORDERED: VITA2000 PO (06:29)
[2017-02-15] MEDS ORDERED: HYDR-3583 PO (06:29)
[2017-02-15] MEDS ORDERED: XARE10TA PO (06:29)
[2017-02-15] MEDS ORDERED: WALKER/ADULT/FO1 MIS (06:29)
[2017-02-15] MEDS ORDERED: CALCTAB19 PO (06:29)
[2017-02-15] MEDS ORDERED: ERGO1CAP30 PO (06:29)
--- NOTE | 2017-02-15 06:31 | PD.ORT.PN ---
Subjective Subjective Remarks POD 1 s/p right hip IMN doing well. pain controlled. has not been out of bed yet Objective Vitals Vital Signs Date Time Temp Pulse Resp B/P Pulse Ox O2 Delivery O2 Flow Rate FiO2 02/15/17 04:15 98.2 98 17 106/66 96 02/15/17 00:35 99.3 99 17 118/71 96 02/14/17 21:00 102 02/14/17 20:15 100.4 106 17 127/76 97 02/14/17 15:15 100.5 121 15 111/84 92 02/14/17 12:00 96.0 104 12 134/80 92 02/14/17 11:26 Room Air 02/14/17 10:34 99.0 96 18 140/71 96 02/14/17 10:30 3.00 02/14/17 09:45 98.6 99 16 129/76 100 Nasal Cannula 2 02/14/17 09:30 94 16 132/78 100 Nasal Cannula 2 02/14/17 09:00 93 14 129/77 100 Nasal Cannula 3 02/14/17 08:45 98 14 130/80 100 Nasal Cannula 3 02/14/17 08:27 98.0 96 14 131/76 100 Nasal Cannula 3 I/O 02/14/17 02/14/17 02/14/17 02/15/17 02/15/17 02/15/17 06:59 14:59 22:59 06:59 14:59 22:59 Intake Total 0 ml 1460 ml 240 ml Output Total 500 ml 500 ml 425 ml Balance -500 ml 960 ml -185 ml Intake Oral 0 ml 360 ml 240 ml IV Total 500 ml Other 600 ml Output Urine Total 500 ml 450 ml 425 ml Estimated Blood Loss 50 ml # Voids 6 # Bowel Movements 0 0 0 Result Diagram: 02/14/17 0020 02/14/17 0020 Objective Remarks RLE: dressings claen and dry. intact. NVI Assessment & Plan Assessment and Plan 1) Right Intertroch Fx s/p IMN - POD 1 -WBAT -daily dressing changes POD 2 -CM fro SNF placement -Lovenox and DC with Xarelto -scripts on chart -f/u with [facility] or [facility] in 2 weeks Archie Miranda Feb 15, 2017 06:31
[2017-02-15] MEDS: ENOXAPARIN SODIUM 30 MG/0.3 ML SYRINGE SQ SCH (07:22)
[2017-02-15] MEDS: ACETAMINOPHEN/HYDROcodone 325 MG/7.5 MG TAB PO PRN ×3 (07:22→23:43)
[2017-02-15 08:14] LABS: HEMATOCRIT 36.4 % (39.0-51.0); REVIEW FLAG FINAL
[2017-02-15] MEDS: SODIUM CHLORIDE 0.9% FLUSH 5 ML FLUSH IVF SCH ×2 (08:43→19:59)
[2017-02-15] MEDS: CHOLECALCIFEROL (VIT D3) 5000 UNIT CAP PO SCH (08:43)
[2017-02-15] MEDS: GABAPENTIN 400 MG CAP PO SCH ×4 (08:44→19:58)
[2017-02-15] MEDS: MAGNESIUM HYDROXIDE SUSP 30 ML CUP PO PRN (08:44)
[2017-02-15] MEDS: DOCUSATE SODIUM 50 MG/SENNA 8.6 MG TAB PO SCH ×2 (08:44→19:58)
[2017-02-15] MEDS: LACTULOSE SYRUP 20 GM/30 ML CUP PO PRN (08:44)
[2017-02-15] MEDS: LORATADINE 10 MG TAB PO SCH (08:44)
[2017-02-15] MEDS: SENNOSIDES 8.6 MG TAB PO PRN (08:44)
[2017-02-15] MEDS: CALCIUM/VITAMIN D 250 MG/125 U TAB PO SCH ×3 (08:44→17:35)
[2017-02-15] MEDS: carBAMazepine 200 MG TAB PO SCH ×3 (08:44→19:59)
[2017-02-15] MEDS: BACLOFEN 10 MG TAB PO SCH ×4 (08:44→19:58)
[2017-02-15 08:51] LABS: BICARBONATE 30.5 MEQ/L (21.0-32.0); POTASSIUM 3.8 MEQ/L (3.5-5.1)
[2017-02-15 09:15] LABS: CKMB 3.6 NG/ML (0.5-3.6)
--- NOTE | 2017-02-15 11:40 | HHI.PR ---
Subjective Remarks Hyponatremia has improved. No complaints from the patient today. Global weakness is present chronically so the patient will likely have to discharge to senior living facility. Objective Vital Signs Date Time Temp Pulse Resp B/P Pulse Ox O2 Delivery O2 Flow Rate FiO2 02/15/17 11:32 96.0 105 19 103/68 96 02/15/17 07:32 98.4 97 18 108/67 95 02/15/17 04:15 98.2 98 17 106/66 96 02/15/17 00:35 99.3 99 17 118/71 96 02/14/17 21:00 102 02/14/17 20:15 100.4 106 17 127/76 97 02/14/17 15:15 100.5 121 15 111/84 92 02/14/17 12:00 96.0 104 12 134/80 92 I/O 02/14/17 02/14/17 02/14/17 02/15/17 02/15/17 02/15/17 07:00 15:00 23:00 07:00 15:00 23:00 Intake Total 0 ml 1460 ml 240 ml 120 ml Output Total 500 ml 500 ml 425 ml 400 ml Balance -500 ml 960 ml -185 ml -280 ml Intake Oral 0 ml 360 ml 240 ml 120 ml IV Total 500 ml Other 600 ml Output Urine Total 500 ml 450 ml 425 ml 400 ml Estimated Blood Loss 50 ml # Voids 6 # Bowel Movements 0 0 0 0 Result Diagram: 02/15/1742 02/15/17641 Objective Remarks GENERAL: NAD, A&Ox3 HEAD: Normocephalic. NECK: Supple, trachea midline. No lymphadenopathy. EYES: No scleral icterus. No injection or drainage. CARDIOVASCULAR: Regular rate and rhythm without murmurs, gallops, or rubs. RESPIRATORY: Breath sounds equal bilaterally. No accessory muscle use. GASTROINTESTINAL: Abdomen soft, non-tender, nondistended. MUSCULOSKELETAL: No cyanosis, or edema. Right hip wound dressing in place SKIN: Warm and dry. NEURO: No focal neurological deficitis. A/P Problem List: (1) Intertrochanteric fracture of right hip ICD Code: S72.141A (2) Weakness of right upper extremity ICD Code: R29.898 (3) Hyponatremia ICD Code: E87.1 Assessment and Plan Assessment and Plan 66-year-old male status post repair of a right hip fracture Right hip fracture Status post surgical repair Continue pain treatments Physical therapy Orthopedic surgery following Plan for discharge to senior living facility Pre-existing/chronic baseline weakness of lower and upper extremities Physical therapy Occupational therapy Plan for discharge to senior living facility Hyponatremia Improving Continue to monitor Trigeminal neuralgia Continue Tegretol COPD No exacerbation Continue MDI as needed Hypertension Vasotec clonidine as needed Follow blood pressure Hyperlipidemia Monitor as an outpatient Statin therapy continue DVT prophylaxis Lovenox and SCDs . Discharge Planning Possible discharge in 2 days to senior living facility Problem Qualifiers (1) Intertrochanteric fracture of right hip: Qualified Code: S72.141A - Closed displaced intertrochanteric fracture of right femur, initial encounter Braxton Gutierrez MD Feb 15, 2017 11:40
[2017-02-15] MEDS: ATORVASTATIN 80 MG TAB PO SCH (19:58)
[2017-02-16] VITALS (8 sets, daily range): BP systolic 98–139; BP diastolic 61–77; PULSE 80–119; RESP 17–19; TEMP 97.6–99.7; O2SAT 96–99
[2017-02-16] MEDS: ACETAMINOPHEN/HYDROcodone 325 MG/7.5 MG TAB PO PRN ×6 (02:15→22:53)
[2017-02-16] MEDS: ENOXAPARIN SODIUM 30 MG/0.3 ML SYRINGE SQ SCH (06:16)
[2017-02-16 06:29] LABS: HEMATOCRIT 30.5 % (39.0-51.0); MEAN CELL VOLUME 86.7 FL (80.0-100.0); MEAN CORPUSCULAR HEMOGLOBIN 30.6 PG (27.0-34.0); MEAN CORPUSCULAR HGB CONC 35.3 % (32.0-36.0); PLATELET COUNT 128 TH/MM3 (150-450); RED BLOOD COUNT 3.52 MIL/MM3 (4.50-5.90); REVIEW FLAG FINAL; WHITE BLOOD COUNT 8.2 TH/MM3 (4.0-11.0)
[2017-02-16 07:00] LABS: BICARBONATE 26.5 MEQ/L (21.0-32.0)
--- NOTE | 2017-02-16 07:19 | PD.ORT.PN ---
Subjective Subjective Remarks POD 2 s/p right hip IMN doing well. pain controlled. resting comfrtably Objective Vitals Vital Signs Date Time Temp Pulse Resp B/P Pulse Ox O2 Delivery O2 Flow Rate FiO2 02/16/17 04:19 99.7 102 17 107/65 98 02/16/17 00:50 99.3 102 17 98/63 98 02/15/17 21:07 102 02/15/17 20:50 99.4 103 17 106/72 95 02/15/17 15:55 97.1 109 19 117/69 100 02/15/17 11:32 96.0 105 19 103/68 96 02/15/17 08:21 90 02/15/17 07:32 98.4 97 18 108/67 95 I/O 02/15/17 02/15/17 02/15/17 02/16/17 02/16/17 02/16/17 06:59 14:59 22:59 06:59 14:59 22:59 Intake Total 120 ml 600 ml 480 ml 120 ml Output Total 400 ml 350 ml 300 ml 300 ml Balance -280 ml 250 ml 180 ml -180 ml Intake Oral 120 ml 600 ml 480 ml 120 ml Output Urine Total 400 ml 350 ml 300 ml 300 ml # Bowel Movements 0 2 0 0 Result Diagram: 02/16/17 0555 02/16/17 0555 Objective Remarks RLE: dressings claen and dry. intact. NVI Assessment & Plan Assessment and Plan 1) Right Intertroch Fx s/p IMN - POD 2 -WBAT -daily dressing changes -CM fro SNF placement -Lovenox and DC with Xarelto -scripts on chart -ortho cleared for DC to SNF -f/u with [facility] or [facility] in 2 weeks Archie Miranda Feb 16, 2017 07:19
[2017-02-16] MEDS: SODIUM CHLORIDE 0.9% FLUSH 5 ML FLUSH IVF SCH ×2 (09:16→22:54)
[2017-02-16] MEDS: LORATADINE 10 MG TAB PO SCH (09:17)
[2017-02-16] MEDS: CHOLECALCIFEROL (VIT D3) 5000 UNIT CAP PO SCH (09:17)
[2017-02-16] MEDS: CALCIUM/VITAMIN D 250 MG/125 U TAB PO SCH ×3 (09:17→17:33)
[2017-02-16] MEDS: BACLOFEN 10 MG TAB PO SCH ×4 (09:17→22:53)
[2017-02-16] MEDS: GABAPENTIN 400 MG CAP PO SCH ×4 (09:17→22:53)
[2017-02-16] MEDS: carBAMazepine 200 MG TAB PO SCH ×3 (09:17→22:53)
[2017-02-16] MEDS: DOCUSATE SODIUM 50 MG/SENNA 8.6 MG TAB PO SCH ×2 (09:18→22:53)
--- NOTE | 2017-02-16 10:52 | HHI.PR ---
Subjective Remarks Improving ambulation. Still needs full assistance with weightbearing, but he is getting out of bed. No acute complaints seen. Possible discharge tomorrow. Objective Vital Signs Date Time Temp Pulse Resp B/P Pulse Ox O2 Delivery O2 Flow Rate FiO2 02/16/17 07:35 97.9 84 19 118/61 99 02/16/17 04:19 99.7 102 17 107/65 98 02/16/17 00:50 99.3 102 17 98/63 98 02/15/17 21:07 102 02/15/17 20:50 99.4 103 17 106/72 95 02/15/17 15:55 97.1 109 19 117/69 100 02/15/17 11:32 96.0 105 19 103/68 96 I/O 02/15/17 02/15/17 02/15/17 02/16/17 02/16/17 02/16/17 07:00 15:00 23:00 07:00 15:00 23:00 Intake Total 120 ml 600 ml 480 ml 120 ml Output Total 400 ml 350 ml 300 ml 300 ml Balance -280 ml 250 ml 180 ml -180 ml Intake Oral 120 ml 600 ml 480 ml 120 ml Output Urine Total 400 ml 350 ml 300 ml 300 ml # Bowel Movements 0 2 0 0 Result Diagram: 02/16/17 0555 02/16/17 0555 Objective Remarks GENERAL: NAD, A&Ox3 HEAD: Normocephalic. NECK: Supple, trachea midline. No lymphadenopathy. EYES: No scleral icterus. No injection or drainage. CARDIOVASCULAR: Regular rate and rhythm without murmurs, gallops, or rubs. RESPIRATORY: Breath sounds equal bilaterally. No accessory muscle use. GASTROINTESTINAL: Abdomen soft, non-tender, nondistended. MUSCULOSKELETAL: No cyanosis, or edema. Right hip wound dressing in place SKIN: Warm and dry. NEURO: No focal neurological deficitis. A/P Problem List: (1) Intertrochanteric fracture of right hip ICD Code: S72.141A (2) Weakness of right upper extremity ICD Code: R29.898 (3) Hyponatremia ICD Code: E87.1 Assessment and Plan Assessment and Plan 66-year-old male status post repair of a right hip fracture. Doing well postop. Continue physical therapy. Hyponatremia present. Continue to monitor BMP. Right hip fracture Status post surgical repair Continue pain treatments Physical therapy Orthopedic surgery following Plan for discharge to alf facility Pre-existing/chronic baseline weakness of lower and upper extremities Physical therapy Occupational therapy Plan for discharge to alf facility Hyponatremia Improving Continue to monitor Trigeminal neuralgia Continue Tegretol COPD No exacerbation Continue MDI as needed Hypertension Vasotec clonidine as needed Follow blood pressure Hyperlipidemia Monitor as an outpatient Statin therapy continue DVT prophylaxis Lovenox and SCDs . Discharge Planning Possible discharge in 1 days to alf facility Problem Qualifiers (1) Intertrochanteric fracture of right hip: Qualified Code: S72.141A - Closed displaced intertrochanteric fracture of right femur, initial encounter Braxton Gutierrez MD Feb 16, 2017 10:52 am
[2017-02-16] MEDS: ONDANSETRON HCL 4 MG/2 ML VIAL IV PUSH PRN (17:40)
[2017-02-16] MEDS ORDERED: PROCHLORPERAZINE INJ 10 MG/2 ML VIAL IV PUSH ONE (19:45)
[2017-02-16] MEDS: ATORVASTATIN 80 MG TAB PO SCH (22:53)
[2017-02-17] VITALS (7 sets, daily range): BP systolic 115–151; BP diastolic 72–91; PULSE 88–115; RESP 16–18; TEMP 97.1–99.3; O2SAT 94–98
[2017-02-17] MEDS: MAGNESIUM HYDROXIDE SUSP 30 ML CUP PO PRN (00:40)
[2017-02-17] MEDS: ONDANSETRON HCL 4 MG/2 ML VIAL IV PUSH PRN ×3 (00:40→09:24)
[2017-02-17] MEDS ORDERED: PROCHLORPERAZINE MALEATE 10 MG TAB PO ONE (02:30)
[2017-02-17] MEDS ORDERED: PROCHLORPERAZINE INJ 10 MG/2 ML VIAL IV PUSH ONE (04:45)
[2017-02-17 05:44] LABS: BICARBONATE 28.5 MEQ/L (21.0-32.0); POTASSIUM 3.7 MEQ/L (3.5-5.1)
[2017-02-17 05:46] LABS: AUTOMATED NEUTROPHIL # 11.1 TH/MM3 (1.8-7.7); BASOPHIL % 0.2 % (0.0-2.0); EOSINOPHIL % 0.1 % (0.0-4.0); HEMATOCRIT 35.9 % (39.0-51.0); HEMO FLAGS DIFF FINAL; LYMPH % 5.5 % (9.0-44.0); LYMPHOCYTE # 0.7 TH/MM3 (1.0-4.8); MEAN CORPUSCULAR HEMOGLOBIN 30.2 PG (27.0-34.0); MEAN CORPUSCULAR HGB CONC 34.8 % (32.0-36.0); MONO % 5.1 % (0.0-8.0); NEUT % 89.1 % (16.0-70.0); PLATELET COUNT 175 TH/MM3 (150-450); RED BLOOD COUNT 4.13 MIL/MM3 (4.50-5.90); RED CELL DISTRIBUTION WIDTH 13.4 % (11.6-17.2); WHITE BLOOD COUNT 12.5 TH/MM3 (4.0-11.0)
[2017-02-17] MEDS: PANTOPRAZOLE INJ 80 MG in SODIUM CHLORIDE 0.9% INJ 100 ML IV SCH ×2 (06:00→16:00)
[2017-02-17] MEDS: SODIUM CHLOR 0.9% 1000 ML INJ 1,000 ML IV SCH ×2 (06:30→18:25)
[2017-02-17] MEDS: SODIUM CHLORIDE 0.9% FLUSH 5 ML FLUSH IVF SCH ×2 (09:00→21:00)
[2017-02-17] MEDS: DOCUSATE SODIUM 50 MG/SENNA 8.6 MG TAB PO SCH ×2 (09:00→22:02)
[2017-02-17] MEDS: CHOLECALCIFEROL (VIT D3) 5000 UNIT CAP PO SCH (09:25)
[2017-02-17] MEDS: GABAPENTIN 400 MG CAP PO SCH ×4 (09:25→22:01)
[2017-02-17] MEDS: LORATADINE 10 MG TAB PO SCH (09:26)
[2017-02-17] MEDS: BACLOFEN 10 MG TAB PO SCH ×4 (09:26→22:02)
[2017-02-17] MEDS: CALCIUM/VITAMIN D 250 MG/125 U TAB PO SCH ×3 (09:26→18:33)
[2017-02-17] MEDS: carBAMazepine 200 MG TAB PO SCH ×3 (09:28→22:02)
--- NOTE | 2017-02-17 10:41 | HHI.PR ---
Subjective Remarks Patient complains of nausea and vomiting today. Unable tolerate breakfast. No appetite for lunch. No diarrhea reported. Objective Vital Signs Date Time Temp Pulse Resp B/P Pulse Ox O2 Delivery O2 Flow Rate FiO2 02/17/17 08:00 97.7 115 18 115/76 95 02/17/17 04:20 97.5 112 18 151/91 94 02/17/17 00:25 99.3 113 18 139/86 96 02/16/17 22:05 21 02/16/17 20:25 99.1 107 18 139/77 96 02/16/17 19:15 119 133/69 02/16/17 15:54 97.6 97 18 109/63 98 02/16/17 11:40 97 Nasal Cannula 2.00 02/16/17 11:40 97.6 98 18 101/69 98 I/O 02/16/17 02/16/17 02/16/17 02/17/17 02/17/17 02/17/17 07:00 15:00 23:00 07:00 15:00 23:00 Intake Total 120 ml 400 ml 240 ml 120 ml Output Total 300 ml 300 ml 300 ml 300 ml Balance -180 ml 100 ml -60 ml -180 ml Intake Oral 120 ml 400 ml 240 ml 120 ml Output Urine Total 300 ml 300 ml 300 ml 300 ml # Bowel Movements 0 0 0 0 Result Diagram: 02/17/1751602/17/17516 Objective Remarks GENERAL: NAD, A&Ox3 HEAD: Normocephalic. NECK: Supple, trachea midline. No lymphadenopathy. EYES: No scleral icterus. No injection or drainage. CARDIOVASCULAR: Regular rate and rhythm without murmurs, gallops, or rubs. RESPIRATORY: Breath sounds equal bilaterally. No accessory muscle use. GASTROINTESTINAL: Abdomen soft, non-tender, nondistended. MUSCULOSKELETAL: No cyanosis, or edema. Right hip wound dressing in place SKIN: Warm and dry. NEURO: No focal neurological deficitis. A/P Problem List: (1) Intertrochanteric fracture of right hip ICD Code: S72.141A (2) Weakness of right upper extremity ICD Code: R29.898 (3) Hyponatremia ICD Code: E87.1 Assessment and Plan Assessment and Plan 66-year-old male status post repair of a right hip fracture. Doing well postop. Continue physical therapy. Hyponatremia improved. Monitor patient's nausea and vomiting. Continue IV hydration. When necessary antiemetics. She will have to have improvement in his by mouth intake prior to consideration for discharge. No signs of bowel obstruction clinically. Right hip fracture Status post surgical repair Continue pain treatments Physical therapy Orthopedic surgery following Plan for discharge to [facility] facility Pre-existing/chronic baseline weakness of lower and upper extremities Physical therapy Occupational therapy Plan for discharge to [facility] facility Hyponatremia Improving Continue to monitor Trigeminal neuralgia Continue Tegretol COPD No exacerbation Continue MDI as needed Hypertension Vasotec clonidine as needed Follow blood pressure Hyperlipidemia Monitor as an outpatient Statin therapy continue DVT prophylaxis Lovenox and SCDs . Discharge Planning Resolution nausea and vomiting needed with good by mouth intake prior to discharge. Problem Qualifiers (1) Intertrochanteric fracture of right hip: Qualified Code: S72.141A - Closed displaced intertrochanteric fracture of right femur, initial encounter Braxton Gutierrez MD Feb 17, 2017 10:41 am
--- NOTE | 2017-02-17 10:48 | PD.ORT.PN ---
Subjective Subjective Remarks comfortable. no c/o. no issues. no CP/SOB Objective Vitals Vital Signs Date Time Temp Pulse Resp B/P Pulse Ox O2 Delivery O2 Flow Rate FiO2 02/17/17 08:00 97.7 115 18 115/76 95 02/17/17 04:20 97.5 112 18 151/91 94 02/17/17 00:25 99.3 113 18 139/86 96 02/16/17 22:05 21 02/16/17 20:25 99.1 107 18 139/77 96 02/16/17 19:15 119 133/69 02/16/17 15:54 97.6 97 18 109/63 98 02/16/17 11:40 97 Nasal Cannula 2.00 02/16/17 11:40 97.6 98 18 101/69 98 I/O 02/16/17 02/16/17 02/16/17 02/17/17 02/17/17 02/17/17 07:00 15:00 23:00 07:00 15:00 23:00 Intake Total 120 ml 400 ml 240 ml 120 ml Output Total 300 ml 300 ml 300 ml 300 ml Balance -180 ml 100 ml -60 ml -180 ml Intake Oral 120 ml 400 ml 240 ml 120 ml Output Urine Total 300 ml 300 ml 300 ml 300 ml # Bowel Movements 0 0 0 0 Result Diagram: 02/17/1751602/17/17516 Objective Remarks RLE: dressings claen and dry. intact. NVI Assessment & Plan Assessment and Plan 1) Right Intertroch Fx s/p IMN - POD 3 -WBAT -daily dressing changes -CM fro SNF placement -Lovenox and DC with Xarelto -scripts on chart -ortho cleared for DC to SNF today -f/u with [facility] or [facility] in 2 weeks Jozef Hylton Jr., MD Feb 17, 2017 10:48
--- NOTE | 2017-02-17 16:36 | EKG ---
Date Performed: 02/14/2017 Time Performed: 01:33:49 PTAGE: 66 years EKG: Sinus rhythm Possible right ventricular conduction delay Borderline EKG PREVIOUS TRACING 07/12/2016 Since prevoius tracing 07/12/2016, no significant change. DOCTOR: El Florian Interpretating Date/Time 02/17/2017 16:35:50
[2017-02-17] MEDS: ACETAMINOPHEN/HYDROcodone 325 MG/7.5 MG TAB PO PRN (22:02)
[2017-02-17] MEDS: ATORVASTATIN 80 MG TAB PO SCH (22:02)
[2017-02-18] VITALS (7 sets, daily range): BP systolic 98–148; BP diastolic 55–91; PULSE 86–107; RESP 18–20; TEMP 96.6–98.5; O2SAT 96–99
[2017-02-18] MEDS: PANTOPRAZOLE INJ 80 MG in SODIUM CHLORIDE 0.9% INJ 100 ML IV SCH ×3 (03:35→21:29)
[2017-02-18] MEDS: ACETAMINOPHEN/HYDROcodone 325 MG/7.5 MG TAB PO PRN ×4 (03:35→16:18)
[2017-02-18] MEDS: SODIUM CHLOR 0.9% 1000 ML INJ 1,000 ML IV SCH (03:36)
[2017-02-18] MEDS: CHOLECALCIFEROL (VIT D3) 5000 UNIT CAP PO SCH (07:59)
[2017-02-18] MEDS: carBAMazepine 200 MG TAB PO SCH ×3 (07:59→21:28)
[2017-02-18] MEDS: GABAPENTIN 400 MG CAP PO SCH ×4 (07:59→21:27)
[2017-02-18] MEDS: DOCUSATE SODIUM 50 MG/SENNA 8.6 MG TAB PO SCH ×2 (08:00→21:20)
[2017-02-18] MEDS: LORATADINE 10 MG TAB PO SCH (08:00)
[2017-02-18] MEDS: BACLOFEN 10 MG TAB PO SCH ×4 (08:00→21:28)
[2017-02-18] MEDS: CALCIUM/VITAMIN D 250 MG/125 U TAB PO SCH ×3 (08:00→16:48)
[2017-02-18] MEDS: SODIUM CHLORIDE 0.9% FLUSH 5 ML FLUSH IVF SCH ×2 (08:04→21:00)
--- NOTE | 2017-02-18 12:00 | PD.ORT.PN ---
Subjective Subjective Remarks POD 4 s/p right hip IMN doing well. pain controlled. resting comfrtably. out of bed to chair Objective Vitals Vital Signs Date Time Temp Pulse Resp B/P Pulse Ox O2 Delivery O2 Flow Rate FiO2 02/18/17 08:00 98.5 99 18 148/91 96 02/18/17 07:55 99 02/18/17 00:05 97.5 100 20 144/79 97 02/17/17 20:05 98.6 96 16 129/80 98 02/17/17 16:00 97.7 96 18 141/75 97 I/O 02/17/17 02/17/17 02/17/17 02/18/17 02/18/17 02/18/17 06:59 14:59 22:59 06:59 14:59 22:59 Intake Total 120 ml 960 ml 360 ml Output Total 300 ml 1300 ml 650 ml Balance -180 ml -340 ml -290 ml Intake Oral 120 ml 960 ml 360 ml Output Urine Total 300 ml 1300 ml 400 ml Emesis 250 ml # Bowel Movements 0 0 Result Diagram: 02/17/1751602/17/17516 Objective Remarks RLE: dressings claen and dry. intact. NVI Assessment & Plan Assessment and Plan 1) Right Intertroch Fx s/p IMN - POD 4 -WBAT -daily dressing changes -CM fro SNF placement -Lovenox and DC with Xarelto -scripts on chart -ortho cleared for DC to SNF today -f/u with [facility] or [facility] in 2 weeks Archie Miranda Feb 18, 2017 12:00
--- NOTE | 2017-02-18 14:00 | HHI.PR ---
Subjective Remarks Nausea and vomiting are improving but not fully resolved. Patient stills has some nausea and has poor by mouth intake. I expect this should improve further tomorrow he should be stable for discharge tomorrow. Objective Vital Signs Date Time Temp Pulse Resp B/P Pulse Ox O2 Delivery O2 Flow Rate FiO2 02/18/17 12:00 96.9 107 18 98/55 96 02/18/17 08:00 98.5 99 18 148/91 96 02/18/17 07:55 99 02/18/17 00:05 97.5 100 20 144/79 97 02/17/17 20:05 98.6 96 16 129/80 98 02/17/17 16:00 97.7 96 18 141/75 97 I/O 02/17/17 02/17/17 02/17/17 02/18/17 02/18/17 02/18/17 07:00 15:00 23:00 07:00 15:00 23:00 Intake Total 120 ml 960 ml 360 ml Output Total 300 ml 1300 ml 650 ml Balance -180 ml -340 ml -290 ml Intake Oral 120 ml 960 ml 360 ml Output Urine Total 300 ml 1300 ml 400 ml Emesis 250 ml # Bowel Movements 0 0 Result Diagram: 02/17/1751602/17/17516 Objective Remarks GENERAL: NAD, A&Ox3 HEAD: Normocephalic. NECK: Supple, trachea midline. No lymphadenopathy. EYES: No scleral icterus. No injection or drainage. CARDIOVASCULAR: Regular rate and rhythm without murmurs, gallops, or rubs. RESPIRATORY: Breath sounds equal bilaterally. No accessory muscle use. GASTROINTESTINAL: Abdomen soft, non-tender, nondistended. MUSCULOSKELETAL: No cyanosis, or edema. Right hip wound dressing in place SKIN: Warm and dry. NEURO: No focal neurological deficitis. A/P Problem List: (1) Intertrochanteric fracture of right hip ICD Code: S72.141A (2) Weakness of right upper extremity ICD Code: R29.898 (3) Hyponatremia ICD Code: E87.1 Assessment and Plan Assessment and Plan 66-year-old male status post repair of a right hip fracture. Doing well postop. Continue physical therapy. Hyponatremia improved. Monitor patient's nausea and vomiting. Continue IV hydration. When necessary antiemetics. Further improvement in by mouth intake needed prior to consideration for discharge. At the rate of improvement he should be stable for discharge by tomorrow. Right hip fracture Status post surgical repair Continue pain treatments Physical therapy Orthopedic surgery following Plan for discharge to alf facility Pre-existing/chronic baseline weakness of lower and upper extremities Physical therapy Occupational therapy Plan for discharge to alf facility Hyponatremia Improving Continue to monitor Trigeminal neuralgia Continue Tegretol COPD No exacerbation Continue MDI as needed Hypertension Vasotec clonidine as needed Follow blood pressure Hyperlipidemia Monitor as an outpatient Statin therapy continue DVT prophylaxis Lovenox and SCDs . Discharge Planning Resolution nausea and vomiting needed with good by mouth intake prior to discharge. Problem Qualifiers (1) Intertrochanteric fracture of right hip: Qualified Code: S72.141A - Closed displaced intertrochanteric fracture of right femur, initial encounter Braxton Gutierrez MD Feb 18, 2017 14:00
[2017-02-18] MEDS: ATORVASTATIN 80 MG TAB PO SCH (21:20)
[2017-02-19] MEDS: ACETAMINOPHEN/HYDROcodone 325 MG/7.5 MG TAB PO PRN ×3 (03:08→09:14)
[2017-02-19] MEDS: MAGNESIUM HYDROXIDE SUSP 30 ML CUP PO PRN (03:13)
[2017-02-19 03:40] VITALS: BP 133/72; PULSE 81; RESP 18; TEMP 96.7; O2SAT 95
--- NOTE | 2017-02-19 07:29 | PD.ORT.PN ---
Subjective Subjective Remarks stable, no changes Objective Vitals Vital Signs Date Time Temp Pulse Resp B/P Pulse Ox O2 Delivery O2 Flow Rate FiO2 02/19/17 03:40 96.7 81 18 133/72 95 02/18/17 23:15 96.8 90 18 133/75 99 02/18/17 19:45 96.6 86 18 132/75 99 02/18/17 16:00 97.2 97 18 104/66 96 02/18/17 12:00 96.9 107 18 98/55 96 02/18/17 08:00 98.5 99 18 148/91 96 02/18/17 07:55 99 I/O 02/18/17 02/18/17 02/18/17 02/19/17 02/19/17 02/19/17 06:59 14:59 22:59 06:59 14:59 22:59 Intake Total 360 ml 552 ml 312 ml 480 ml Output Total 650 ml 400 ml 600 ml Balance -290 ml 552 ml -88 ml -120 ml Intake Oral 360 ml 312 ml 480 ml IV Total 552 ml Output Urine Total 400 ml 400 ml 600 ml Emesis 250 ml # Voids 2 # Bowel Movements 0 0 Result Diagram: 02/17/1751602/17/17516 Objective Remarks RLE: dressings clean and dry. intact. NVI Assessment & Plan Assessment and Plan 1) Right Intertroch Fx s/p IMN - POD 5 -WBAT -daily dressing changes -CM fro SNF placement -Lovenox and DC with Xarelto -scripts on chart -ortho cleared for DC to SNF today -f/u with [facility] or [facility] in 2 weeks Adria Flynn Jr. Feb 19, 2017 07:29
[2017-02-19 07:39] VITALS: BP 137/79; PULSE 83; RESP 18; TEMP 97.2; O2SAT 97
[2017-02-19] MEDS: SODIUM CHLORIDE 0.9% FLUSH 5 ML FLUSH IVF SCH (09:00)
[2017-02-19] MEDS: LORATADINE 10 MG TAB PO SCH ×2 (09:00→09:13)
[2017-02-19] MEDS: PANTOPRAZOLE INJ 80 MG in SODIUM CHLORIDE 0.9% INJ 100 ML IV SCH (09:12)
[2017-02-19] MEDS: CHOLECALCIFEROL (VIT D3) 5000 UNIT CAP PO SCH (09:13)
[2017-02-19] MEDS: SENNOSIDES 8.6 MG TAB PO PRN (09:13)
[2017-02-19] MEDS: GABAPENTIN 400 MG CAP PO SCH ×2 (09:13→13:31)
[2017-02-19] MEDS: carBAMazepine 200 MG TAB PO SCH (09:13)
[2017-02-19] MEDS: DOCUSATE SODIUM 50 MG/SENNA 8.6 MG TAB PO SCH (09:13)
[2017-02-19] MEDS: BACLOFEN 10 MG TAB PO SCH ×2 (09:13→13:31)
[2017-02-19] MEDS: CALCIUM/VITAMIN D 250 MG/125 U TAB PO SCH ×2 (09:13→13:31)
[2017-02-19] MEDS ORDERED: DOCU100C PO (11:52)
--- NOTE | 2017-02-19 11:54 | HHI.DS ---
Discharge Summary Admission Date Feb 14, 2017 at 02:03 Discharge Date: Feb 19, 2017 Admitting Diagnosis Right hip intertrochanteric fx (1) Intertrochanteric fracture of right hip ICD Code: S72.141A Procedures Right hip reduction and intramedullary nail fixation Brief History - From Admission The patient was at home and turned around and fell down. He reports that he spent about an hour on the floor before he was able to call for help - right hip was painful Denies chest pain, shortness of breath, dizziness, palpitations, fever, n/v/d, dysuria, hematuria, black stool or red stool. Denies history of anesthesia complications CBC/BMP: 02/17/17 0517 02/17/17 0517 Significant Findings Laboratory Tests Test 02/17/17 05:17 White Blood Count 12.5 TH/MM3 (4.0-11.0) Red Blood Count 4.13 MIL/MM3 (4.50-5.90) Hemoglobin 12.5 GM/DL (13.0-17.0) Hematocrit 35.9 % (39.0-51.0) Neutrophils (%) (Auto) 89.1 % (16.0-70.0) Lymphocytes (%) (Auto) 5.5 % (9.0-44.0) Neutrophils # (Auto) 11.1 TH/MM3 (1.8-7.7) Lymphocytes # (Auto) 0.7 TH/MM3 (1.0-4.8) Sodium Level 134 MEQ/L (136-145) Chloride Level 94 MEQ/L (98-107) Creatinine 0.56 MG/DL (0.60-1.30) PE at Discharge Well-developed, well-nourished in no distress Skin warm no rashes Normocephalic atraumatic HEENT pupils reactive to light Equal breath sounds clear to auscultation Regular rate and rhythm Abdomen soft nontender Extremities dry dressing right hip no edema Alert and oriented nonfocal Hospital Course Mr. Guevara is a 66-year-old male. He was minute secondary to fracture of the right hip. He had a right hip reduction and intramedullary nail fixation. She did well postop. He does have chronic weakness at baseline and has had slow progression with PT. Discharge was planned the patient developed nausea and vomiting which lasted for between 1 and 2 days. Today he is able to tolerate liquids and solids and safe to come off IV hydration. Medically stable for discharge to a assisted facility with rehabilitation today and continuation of physical therapy. Pt Condition on Discharge: Stable Discharge Disposition: Discharge to SNF Discharge Time: > 30 minutes Discharge Instructions DIET: Follow Instructions for: As Tolerated, No Restrictions Activities you can perform: Regular-No Restrictions Follow up Referrals: Orthopedics - 03/01/17 @ [facility] with Alon Penaloza MD PCP Follow-up - 2 Weeks New Medications: Calcium Carbonate-Vitamin D (Calcium 600+D 200) 600-200 Mg-Unit Tab 1 TAB PO BID Nutritional Supplement #30 Ref 0 TAB Cholecalciferol (Vitamin D3) 2,000 Unit Cap 2000 UNITS PO DAILY Nutritional Supplement #56 Ref 0 CAP Docusate Sodium (Docusate Sodium) 100 Mg Cap 100 MG PO BID PRN CONSTIPATION #60 Ref 0 CAP Ergocalciferol (Ergocalciferol) 50,000 Unit Cap 58608 UNITS PO Q7D Nutritional Supplement #56 CAP Hydrocodone-Acetaminophen (Hydrocodone-Acetaminophen) 10-325 mg Tab 1 TAB PO Q4H PRN PAIN #60 Ref 0 TAB Rivaroxaban (Xarelto) 10 Mg Tab 10 MG PO DAILY Blood Clot Prevention #14 Ref 0 TAB Walker/Adult/Folding (Walker/Adult/Folding) 1 Mis Mis 1 EA .ROUTE DIRECTED #1 Ref 0 EA Continued Medications: Albuterol 18 GM Inh (Ventolin Hfa 18 GM Inh) 90 Mcg/Act Aer 2 PUFF INH Q4H PRN SHORTNESS OF BREATH #1 Ref 0 INHALER Atorvastatin (Atorvastatin) 80 Mg Tab 80 MG PO HS Cholesterol Management #30 Ref 0 TAB Baclofen (Baclofen) 10 Mg Tab 10 MG PO QID MUSCLE SPASM Ref 0 TAB Carbamazepine (Carbamazepine) 200 Mg Tab 200 MG PO HS #60 Ref 0 TAB Carbamazepine (Carbamazepine) 200 Mg Tab 400 MG PO BID #60 Ref 0 TAB Fluticasone Nasal [place] (Flonase Nasal [place]) 50 Mcg/Act [place] 2 PUFF EACH NARE HS Allergies #1 Ref 0 BOTTLE Gabapentin (Gabapentin) 800 Mg Tab 800 MG PO QID #90 Ref 0 TAB Loratadine (Claritin) 10 Mg Cap 10 MG PO DAILY Allergy Management Ref 0 CAP Meloxicam (Meloxicam) 15 Mg Tab 15 MG PO DAILY Arthritis Pain #30 Ref 0 TAB Discontinued Medications: Aspirin DR (Aspirin 81) 81 Mg Tabdr 81 MG PO HS Ref 0 TAB Hydrocodone-Acetaminophen ([place]) 10-325 Mg Tab 1 TAB PO Q4HR PRN PAIN Ref 0 TAB Braxton Gutierrez MD Feb 19, 2017 11:54
[2017-02-19 12:00] VITALS: BP 130/80; PULSE 92; RESP 18; TEMP 96.2; O2SAT 96
[2017-02-19 13:00] VITALS: PULSE 97
--- NOTE | 2017-02-19 13:54 | PD.WCN.NOT ---
Wound Consult Description: Sacrum deep tissue injury Communicated with: Demetrius lazaro and Doctor Matt Recommendation: Recommend to cleanse wound to sacral area gently with normal and pat dry. Apply skin prep over intact DTI. Cover with small bordered gauze dressing and change daily. Additional Information: Patient seen on for evaluation of coccyx wound. Ernesto stood with assistance of Jamey lazaro and principal technical writer. Removed adhesive foam dressing in place to reveal Deep tissue injury to Sacrum that is opening to small area of partial thickness skin loss. Wound measures 1.4cm x 1.4cm x ~<0.1cm.Wound has scant sanguinous drainage that is without odor. Cleansed wound to sacral area gently with normal saline, Left open to air.Patient assisted to sitting position. DEMETRIUS Mayer to apply skin prep and dressing when patient is back in bed. Ostomy Date of Surgery: Feb 14, 2017 Isabel Rivera [facility] Feb 19, 2017 13:54
== END 2017-02-19 14:49 | DRG 481 ==
LOC: NEPE 23:59 → NEDA 02-14 02:03 → N06B 02-14 04:15
PROVIDERS: ADMIT Hospitalist; ATTEND Hospitalist
PROC: 0QS636Z Reposition Right Upper Femur with Intramedullary Internal Fixation Device, Percutaneous Approach (ICD-10-PCS; principal; 2017-02-14 07:16)
DX: S72.141A Displaced intertrochanteric fracture of right femur, initial encounter for closed fracture (principal); E87.1 Hypo-osmolality and hyponatremia; I10 Essential (primary) hypertension; J98.11 Atelectasis; J44.9 Chronic obstructive pulmonary disease, unspecified; E78.5 Hyperlipidemia, unspecified; G50.0 Trigeminal neuralgia; F41.9 Anxiety disorder, unspecified; F17.210 Nicotine dependence, cigarettes, uncomplicated; Z79.82 Long term (current) use of aspirin; W01.0XXA Fall on same level from slipping, tripping and stumbling without subsequent striking against object, initial encounter; Y92.009 Unspecified place in unspecified non-institutional (private) residence as the place of occurrence of the external cause; R11.2 Nausea with vomiting, unspecified
CPT/HCPCS: 71010; 73502; 76000; 80048; 80053; 80156; 81001; 82270; 82306; 82550; 82552; 83690; 83735; 83880; 84484; 85014; 85018; 85025; 85027; 85610; 85730; 86850; 86900; 86901; 93005; 94150; 96361; 96374; 96375; C1713; C9113; J0131; J0690; J0780; J1100; J1580; J1650; J2250; J2270; J2370; J2405; J3010; J3370; J7030; J7050; J7120

== ENCOUNTER 2017-05-05 01:44 | Inpatient (IN) | payer MEDICARE, OTHER ==
[~2017-05-05] VITALS: Ht 188 cm; Wt 72.8 kg
[~2017-05-05 01:44] MED LIST changes: -ALAV10TA10 PO; -ASPI-110 PO; +CALCTAB19 PO; +CLAR10CA3 PO; +DOCU100C PO; +ERGO1CAP30 PO; -HYDR-3366 PO; +HYDR-3583 PO; +MELO-1 PO; -MIRA33504 PO; -MORP1TAB25 PO; -OSCA200T PO; -SODI325T PO; -VITA100018 PO; +VITA2000 PO; +WALKER/ADULT/FO1 MIS; +XARE10TA PO
[2017-05-05 01:57] VITALS: BP 131/68; PULSE 117; RESP 18; TEMP 99.7; O2SAT 96
[2017-05-05] MEDS ORDERED: PIPERACIL-TAZO 4.5 GM PREMIX 100 ML IV STA (02:21)
[2017-05-05] MEDS ORDERED: VANCOMYCIN INJ 1,000 MG in SODIUM CHLOR 0.9% 250 ML INJ 250 ML IV STA (02:21)
[2017-05-05] MEDS ORDERED: SODIUM CHLOR 0.9% 1000 ML INJ 1,000 ML IV ONE (02:30)
[2017-05-05] MEDS ORDERED: MORP1TAB24 PO (02:39)
[2017-05-05 02:46] VITALS: BP 126/64; PULSE 105; RESP 18; TEMP 98.9; O2SAT 99
--- NOTE | 2017-05-05 02:46 | PD ---
HPI Chief Complaint: Skin Problem Time Seen by Provider: 02:15 Travel History International Travel<30 days: No Contact w/Intl Traveler<30days: No Traveled to known affect area: No History of Present Illness HPI 66-year-old male states that a week ago he felt something bite his arm and since then he's had redness and swelling. He states recently he started having pus drain from that area. He states he feels chills. He states no other concurrent complaints. He has not seen a physician for this yet. Quality is swollen. Severity is progressive. He denies specific modifying factors. Duration is one week. PFSH Past Medical History Hx Anticoagulant Therapy: No Arthritis: Yes Anxiety: Yes Depression: No Cardiovascular Problems: Yes (HTN) High Cholesterol: Yes COPD: Yes Endocrine: No Genitourinary: No Hypertension: Yes Immune Disorder: No Implanted Vascular Access Dvce: Yes Musculoskeletal: Yes Neurologic: Yes (trigeminal neuralgia) Psychiatric: Yes Respiratory: Yes Sleep Apnea: No Tetanus Vaccination: < 5 Years Influenza Vaccination: Yes Past Surgical History Body Medical Devices: SCREWS IN THE SPINE Social History Alcohol Use: No Tobacco Use: Yes (half a pack per day) Substance Use: No Allergies-Medications (Allergen,Severity, Reaction): Coded Allergies: No Known Allergies (Unverified , 05/05/17) Reported Meds & Prescriptions Reported Meds & Active Scripts Active Calcium 600+D 200 (Calcium Carbonate-Vitamin D) 600-200 Mg-Unit Tab 1 Tab PO BID Vitamin D3 (Cholecalciferol) 2,000 Unit Cap 2,000 Units PO DAILY Hydrocodone-Acetaminophen 10-325 mg Tab 1 Tab PO Q4H PRN Walker/Adult/Folding (Device) 1 Mis Mis 1 Ea .ROUTE DIRECTED Reported Morphine ER (Morphine Sulfate) 15 Mg Tab 15 Mg PO Q8H Meloxicam 15 Mg Tab 15 Mg PO DAILY Claritin (Loratadine) 10 Mg Cap 10 Mg PO DAILY Flonase Nasal [place] (Fluticasone Nasal [place]) 50 Mcg/Act [place] 2 Puff EACH NARE HS Ventolin Hfa 18 GM Inh (Albuterol Sulfate) 90 Mcg/Act Aer 2 Puff INH Q4H PRN Carbamazepine 200 Mg Tab 400 Mg PO BID Gabapentin 800 Mg Tab 800 Mg PO QID Atorvastatin (Atorvastatin Calcium) 80 Mg Tab 80 Mg PO HS Baclofen 10 Mg Tab 10 Mg PO QID Carbamazepine 200 Mg Tab 200 Mg PO HS Review of Systems Except as stated in HPI: all other systems reviewed are Neg Physical Exam Narrative GENERAL: Well-nourished, well-developed patient. SKIN: Warm and dry. HEAD: Normocephalic and atraumatic. EYES: No injection or drainage. ENT: No nasal drainage noted. NECK: Supple, trachea midline. CARDIOVASCULAR: Regular rate and rhythm RESPIRATORY: No increased effort. No accessory muscle use. EXTREMITIES: Erythema, warmth, swelling noted to right forearm from above wrist to elbow area, to dorsal aspect there is an opening to mid forearm that is actively draining pus and was cultured NEUROLOGICAL: Awake and alert. Motor and sensory grossly within normal limits. Normal speech. Data Data Last Documented VS Vital Signs Date Time Temp Pulse Resp B/P (MAP) Pulse Ox O2 Delivery O2 Flow Rate FiO2 05/05/17 02:46 98.9 105 18 126/64 (84) 99 Room Air Orders Orders Complete Blood Count With Diff (05/05/17 02:20) Comprehensive Metabolic Panel (05/05/17 02:20) Prothrombin Time / Inr (Pt) (05/05/17 02:20) Act Partial Throm Time (Ptt) (05/05/17 02:20) Lactic Acid Sepsis Protocol (05/05/17 02:20) Magnesium (Mg) (05/05/17 02:20) Phosphorus (Po4) (05/05/17 02:20) Blood Culture (05/05/17 02:20) Wound Culture And Gram Stain (05/05/17 02:20) Ecg Monitoring (05/05/17 02:20) Iv Access Insert/Monitor (05/05/17 02:20) Oximetry (05/05/17 02:20) Forearm (2vws) (05/05/17 ) Piperacil-Tazo 4.5 Gm Premix (Zosyn 4.5 (05/05/17 02:21) Vancomycin Inj (Vancomycin Inj) (05/05/17 02:21) Sodium Chlor 0.9% 1000 Ml Inj (Ns 1000 M (05/05/17 02:30) Admit Order (Ed Use Only) (05/05/17 03:34) Vancomycin Consult Pharmacy (Vancomycin (05/05/17 03:45) Cefepime Inj (Maxipime Inj) (05/05/17 21:00) Admit To Inpatient (05/05/17 ) Vital Signs (Adult) Q4H (05/05/17 03:36) Activity Oob Ad Mary (05/05/17 03:36) Engineering Aid / Telemetry .CONTINUOUS (05/05/17 03:36) Intake + Output MÓNICA.QSHIFT (05/05/17 03:36) Diet Regular Basic (05/05/17 Breakfast) Sodium Chlor 0.9% 1000 Ml Inj (Ns 1000 M (05/05/17 03:36) Sodium Chloride 0.9% Flush (Ns Flush) (05/05/17 03:45) Sodium Chloride 0.9% Flush (Ns Flush) (05/05/17 09:00) Ondansetron Inj (Zofran Inj) (05/05/17 03:45) Comprehensive Metabolic Panel (05/06/17 06:00) Complete Blood Count With Diff (05/06/17 06:00) Scd Bilateral/Knee High MÓNICA.BID (05/05/17 03:36) Epi Bilateral/Knee High MÓNICA.QSHIFT (05/05/17 03:39) Acetaminophen (Tylenol) (05/05/17 03:45) Acetamin-Hydrocod 325-5 Mg ([place] 5-325 (05/05/17 03:45) Morphine Inj (Morphine Inj) (05/05/17 03:45) Docusate Sodium-Senna (Lisa-Colace) (05/05/17 09:00) Magnesium Hydroxide Liq (Milk Of Magnesi (05/05/17 03:45) Sennosides (Senokot) (05/05/17 03:45) Bisacodyl Supp (Dulcolax Supp) (05/05/17 03:45) Lactulose Liq (Lactulose Liq) (05/05/17 03:45) Inpatient Certification (05/05/17 ) Albuterol Hfa Inh (Proair Hfa Inh) (05/05/17 03:45) Atorvastatin (Lipitor) (05/05/17 21:00) Baclofen (Lioresal) (05/05/17 09:00) Carbamazepine (Tegretol) (05/05/17 21:00) Carbamazepine (Tegretol) (05/05/17 09:00) Gabapentin (Neurontin) (05/05/17 09:00) Loratadine (Claritin) (05/05/17 09:00) Morphine Sr (Oramorph Sr) (05/05/17 03:45) Labs Laboratory Tests Test 05/05/17 02:35 05/05/17 02:40 White Blood Count 14.2 TH/MM3 Red Blood Count 4.89 MIL/MM3 Hemoglobin 14.8 GM/DL Hematocrit 43.9 % Mean Corpuscular Volume 89.7 FL Mean Corpuscular Hemoglobin 30.2 PG Mean Corpuscular Hemoglobin Concent 33.6 % Red Cell Distribution Width 13.6 % Platelet Count 260 TH/MM3 Mean Platelet Volume 7.8 FL Neutrophils (%) (Auto) 84.4 % Lymphocytes (%) (Auto) 5.8 % Monocytes (%) (Auto) 8.4 % Eosinophils (%) (Auto) 1.1 % Basophils (%) (Auto) 0.3 % Neutrophils # (Auto) 12.0 TH/MM3 Lymphocytes # (Auto) 0.8 TH/MM3 Monocytes # (Auto) 1.2 TH/MM3 Eosinophils # (Auto) 0.2 TH/MM3 Basophils # (Auto) 0.0 TH/MM3 CBC Comment DIFF FINAL Differential Comment Prothrombin Time 10.3 SEC Prothromb Time International Ratio 0.9 RATIO Activated Partial Thromboplast Time 34.5 SEC Blood Urea Nitrogen 8 MG/DL Creatinine 0.54 MG/DL Random Glucose 84 MG/DL Total Protein 7.6 GM/DL Albumin 3.6 GM/DL Calcium Level 8.9 MG/DL Phosphorus Level 2.4 MG/DL Magnesium Level 2.1 MG/DL Alkaline Phosphatase 164 U/L Aspartate Amino Transf (AST/SGOT) 21 U/L Alanine Aminotransferase (ALT/SGPT) 27 U/L Total Bilirubin 0.3 MG/DL Sodium Level 127 MEQ/L Potassium Level 3.9 MEQ/L Chloride Level 92 MEQ/L Carbon Dioxide Level 31.9 MEQ/L Anion Gap 3 MEQ/L Estimat Glomerular Filtration Rate 153 ML/MIN Lactic Acid Level 0.9 mmol/L MDM Medical Decision Making Medical Screen Exam Complete: Yes Emergency Medical Condition: Yes Medical Record Reviewed: Yes (past history confirmed) Interpretation(s) CBC & BMP Diagram 05/05/17 02:35 Total Protein 7.6, Albumin 3.6, Calcium Level 8.9, Phosphorus Level 2.4 L, Magnesium Level 2.1, Alkaline Phosphatase 164 H, Aspartate Amino Transf (AST/ SGOT) 21, Alanine Aminotransferase (ALT/SGPT) 27, Total Bilirubin 0.3 Last 24 hours Impressions Radius/Ulna X-Ray 05/05/17 0000 Signed Impressions: Service Date/Time: Sunday, May 05, 2017 02:47 - CONCLUSION: Soft tissue swelling. Brodie Jorgensen MD Differential Diagnosis Abscess, cellulitis, insect bite, sepsis Narrative Course Will check blood work, x-ray and dose with vancomycin and Zosyn given large area and he will likely need admission to the hospital Patient has leukocytosis, tachycardia but normal lactate. Given this and extent of infection to arm Will admit to the hospital for further care. Patient updated and agrees to plan of care Sepsis Criteria SIRS Criteria (2 or more): Heart rate over 90, WBC > 74649, < 4000 or > 10% bands Sepsis Criteria (SIRS+source): Infect source susp/known Criteria Outcome: Meets sepsis criteria Physician Communication Physician Communication dr williamson agrees to admit Diagnosis Primary Impression: Right arm cellulitis Additional Impressions: Abscess of right arm Sepsis Qualified Codes: A41.9 - Sepsis, unspecified organism Admitting Information Admitting Physician Requests: Admit Pearl Zavala MD May 05, 2017 02:46
[2017-05-05 02:55] LABS: BASOPHIL % 0.3 % (0.0-2.0); EOSINOPHIL # 0.2 TH/MM3 (0-0.4); EOSINOPHIL % 1.1 % (0.0-4.0); HEMATOCRIT 43.9 % (39.0-51.0); HEMO FLAGS DIFF FINAL; LYMPH % 5.8 % (9.0-44.0); LYMPHOCYTE # 0.8 TH/MM3 (1.0-4.8); MEAN CELL VOLUME 89.7 FL (80.0-100.0); MEAN CORPUSCULAR HEMOGLOBIN 30.2 PG (27.0-34.0); MEAN CORPUSCULAR HGB CONC 33.6 % (32.0-36.0); MONO % 8.4 % (0.0-8.0); NEUT % 84.4 % (16.0-70.0); PLATELET COUNT 260 TH/MM3 (150-450); RED BLOOD COUNT 4.89 MIL/MM3 (4.50-5.90); RED CELL DISTRIBUTION WIDTH 13.6 % (11.6-17.2); WHITE BLOOD COUNT 14.2 TH/MM3 (4.0-11.0)
[2017-05-05 03:08] LABS: APTT (PATIENT) 34.5 SEC (24.3-30.1); INTERNATIONAL NORMALIZED RATIO 0.9 RATIO; PROTHROMBIN TIME - PATIENT 10.3 SEC (9.8-11.6)
--- NOTE | 2017-05-05 03:22 | RADRPT ---
EXAM DATE/TIME: 05/05/2017 02:47 [facility] COMPARISON: No previous studies available for comparison. INDICATIONS : Right arm pain from neuropathy and a possible bug bite mid shaft. No trauma. MEDICAL HISTORY : Hypercholesterolemia. Hypertension Chronic obstructive pulmonary disease. Neuropathy SURGICAL HISTORY : Right hip surgery. ENCOUNTER: Initial ACUITY: 1 day PAIN SCORE: 6/10 LOCATION: Right forearm FINDINGS: The bony structures are intact. No foreign body is seen. There is soft tissue swelling seen at the pr oximal to mid medial dorsal forearm. CONCLUSION: Soft tissue swelling. Brodie Jorgensen MD on May 05, 2017 at 3:19 Board Certified Radiologist. This report was verified electronically.
[2017-05-05 03:28] LABS: ALT (GPT) 27 U/L (12-78); ANION GAP 3 MEQ/L (5-15); AST (GOT) 21 U/L (15-37); BICARBONATE 31.9 MEQ/L (21.0-32.0); BLOOD UREA NITROGEN 8 MG/DL (7-18); CHLORIDE 92 MEQ/L (98-107); GLOMERULAR FILTRATION RATE 153 ML/MIN (>89); MAGNESIUM 2.1 MG/DL (1.5-2.5); POTASSIUM 3.9 MEQ/L (3.5-5.1); SODIUM (NA) 127 MEQ/L (136-145)
[2017-05-05 03:30] LABS: ALKALINE PHOSPHATASE 164 U/L (45-117); TOTAL BILIRUBIN ADULT 0.3 MG/DL (0.2-1.0)
[2017-05-05] MEDS ORDERED: SENNOSIDES 8.6 MG TAB PO PRN (03:45)
[2017-05-05] MEDS ORDERED: Vancomycin Consult Pharmacy 1 EA OTHER SCH (03:45)
[2017-05-05] MEDS ORDERED: BISACODYL 10 MG SUPP RECTAL PRN (03:45)
[2017-05-05] MEDS ORDERED: ACETAMINOPHEN 325 MG TAB PO PRN (03:45)
[2017-05-05] MEDS ORDERED: LACTULOSE SYRUP 20 GM/30 ML CUP PO PRN (03:45)
[2017-05-05] MEDS ORDERED: MORPHINE SULFATE 4 MG/ML INJ IV PUSH PRN (03:45)
[2017-05-05] MEDS ORDERED: SODIUM CHLORIDE 0.9% FLUSH 10 ML FLUSH IV FLUSH PRN (03:45)
[2017-05-05] MEDS ORDERED: MAGNESIUM HYDROXIDE SUSP 30 ML CUP PO PRN (03:45)
[2017-05-05] MEDS ORDERED: ALBUTEROL SULFATE 90 MCG/ACT HFA 8 GM INHALER INH PRN (03:45)
[2017-05-05] MEDS ORDERED: ONDANSETRON HCL 4 MG/2 ML VIAL IVP PRN (03:45)
[2017-05-05] MEDS: MORPHINE SULFATE 15 MG CONTROLLED RELEASE TAB PO SCH ×3 (04:14→20:52)
--- NOTE | 2017-05-05 04:47 | HHI.HP ---
[facility] Admission Diagnosis cellulitis, abscess, sepsis Diagnoses: (1) Sepsis Diagnosis: Principal (2) Abscess of right arm Diagnosis: Principal (3) Hyponatremia Diagnosis: Principal (4) COPD (chronic obstructive pulmonary disease) Diagnosis: Principal (5) Tobacco abuse Diagnosis: Principal Travel History International Travel<30 Days: No Contact w/Intl Traveler <30 Da: No Traveled to Known Affected Are: No History of Present Illness This is a 66-year-old male with a PMH of Anxiety, HTN, Hyperlipidemia, COPD and Tobacco Abuse who presents to ER with complaints of right arm redness and swelling x2-3 days. States about a week ago he felt something sharp on his arm , went to smack it but didn't notice any bug/spider, few days later noticed redness/swelling to hand, now involving entire arm. Today noticed "bump" and squeezed it. Denies fever or chills. On arrival, BP 131/60, HR 117, O2 sat 96 % on RA, Temp 99.7. WBC 14.2. Na 127. Lactic Acid normal at 0.9. There are 0.9. Radius/Ulna X-ray was soft tissue swelling. On exam, pt w/ open abscess w / purulent secretions. S/p Wound/Blood Culture, Vanc/Zosyn in ER. Review of Systems Except as stated in HPI: all other systems reviewed are Neg ROS: 14 point review of systems otherwise negative. Past Family Social History Past Medical History PMH: Anxiety, HTN, Hyperlipidemia, COPD and Tobacco Abuse Past Surgical History PAST SURGICAL HISTORY: Spine Screws Allergies: Coded Allergies: No Known Allergies (Unverified , 05/05/17) Family History PAST FAMILY HISTORY: Reviewed. No h/o DM or CAD Social History PAST SOCIAL HISTORY: Negative for alcohol or drugs. Smokes 1/2ppd. Physical Exam Vital Signs Vital Signs Date Time Temp Pulse Resp B/P (MAP) Pulse Ox O2 Delivery O2 Flow Rate FiO2 05/05/17 02:46 98.9 105 18 126/64 (84) 99 Room Air 05/05/17 01:57 99.7 117 18 131/68 (65) 96 Physical Exam PE: GENERAL: Middle-aged white male in no acute distress. HEENT: PERRLA, EOMI. No scleral icterus or conjunctival pallor. No lid lag or facial droop. CARDIOVASCULAR: Regular rate and rhythm. No obvious murmurs to auscultation. No chest tenderness to palpation. RESPIRATORY: No obvious rhonchi or wheezing. Clear to auscultation. Breath sounds equal bilaterally. GASTROINTESTINAL: Abdomen soft, non-tender, nondistended. BS normal. MUSCULOSKELETAL: Extremities without clubbing, cyanosis, or edema. No obvious deformities. Right arm w/ edema/erythema involving forearm, central abscess w/ purulent drainage. NEUROLOGICAL: Awake, alert and oriented x4. No focal neurologic deficits. Moving both upper and lower extremities spontaneously. Laboratory Laboratory Tests Test 05/05/17 02:35 05/05/17 02:40 White Blood Count 14.2 Red Blood Count 4.89 Hemoglobin 14.8 Hematocrit 43.9 Mean Corpuscular Volume 89.7 Mean Corpuscular Hemoglobin 30.2 Mean Corpuscular Hemoglobin Concent 33.6 Red Cell Distribution Width 13.6 Platelet Count 260 Mean Platelet Volume 7.8 Neutrophils (%) (Auto) 84.4 Lymphocytes (%) (Auto) 5.8 Monocytes (%) (Auto) 8.4 Eosinophils (%) (Auto) 1.1 Basophils (%) (Auto) 0.3 Neutrophils # (Auto) 12.0 Lymphocytes # (Auto) 0.8 Monocytes # (Auto) 1.2 Eosinophils # (Auto) 0.2 Basophils # (Auto) 0.0 CBC Comment DIFF FINAL Differential Comment Prothrombin Time 10.3 Prothromb Time International Ratio 0.9 Activated Partial Thromboplast Time 34.5 Blood Urea Nitrogen 8 Creatinine 0.54 Random Glucose 84 Total Protein 7.6 Albumin 3.6 Calcium Level 8.9 Phosphorus Level 2.4 Magnesium Level 2.1 Alkaline Phosphatase 164 Aspartate Amino Transf (AST/SGOT) 21 Alanine Aminotransferase (ALT/SGPT) 27 Total Bilirubin 0.3 Sodium Level 127 Potassium Level 3.9 Chloride Level 92 Carbon Dioxide Level 31.9 Anion Gap 3 Estimat Glomerular Filtration Rate 153 Lactic Acid Level 0.9 Date/Time Source Procedure Growth Status 05/05/17 02:40 Blood Peripheral Aerobic Blood Culture Pending Received 05/05/17 02:40 Blood Peripheral Anaerobic Blood Culture Pending Received 05/05/17 02:30 Wound Arm Gram Stain Pending Received 05/05/17 02:30 Wound Arm Wound Culture Pending Received Result Diagram: 05/05/17 0235 05/05/17 0235 Trina VTE Risk Assessment Caprini VTE Risk Assessment: No/Low Risk (score <= 1) Caprini Risk Assessment Model Point Value = 1 Point Value = 2 Point Value = 3 Point Value = 5 Age 41-60 Minor surgery BMI > 25 kg/m2 Swollen legs Varicose veins or History of unexplained or recurrent spontaneous Oral contraceptives or hormone replacement Sepsis (< 1 month) Serious lung disease, including pneumonia (< 1 month) Abnormal pulmonary function Acute myocardial infarction Congestive heart failure (< 1 month) History of inflammatory bowel disease Medical patient at bed rest Age 61-74 Arthroscopic surgery Major open surgery (> 45 min) Laparoscopic surgery (> 45 min) Malignancy Confined to bed (> 72 hours) Immobilizing plaster cast Central venous access Age >= 75 History of VTE Family history of VTE Factor V Leiden Prothrombin [id number] Lupus anticoagulant Anticardiolipin antibodies Elevated serum homocysteine Heparin-induced thrombocytopenia Other congenital or acquired thrombophilia Stroke (< 1 month) Elective arthroplasty Hip, pelvis, or leg fracture Acute spinal cord injury (< 1 month) Prophylaxis Regimen Total Risk Factor Score Risk Level Prophylaxis Regimen 0-1 Low Early ambulation 2 Moderate Order ONE of the following: *Sequential Compression Device (SCD) *Heparin 5000 units SQ BID 3-4 Higher Order ONE of the following medications: *Heparin 5000 units SQ TID *Enoxaparin/Lovenox 40 mg SQ daily (WT < 150 kg, CrCl > 30 mL/min) *Enoxaparin/Lovenox 30 mg SQ daily (WT < 150 kg, CrCl > 10-29 mL/min) *Enoxaparin/Lovenox 30 mg SQ BID (WT < 150 kg, CrCl > 30 mL/min) AND/OR *Sequential Compression Device (SCD) 5 or more Highest Order ONE of the following medications: *Heparin 5000 units SQ TID (Preferred with Epidurals) *Enoxaparin/Lovenox 40 mg SQ daily (WT < 150 kg, CrCl > 30 mL/min) *Enoxaparin/Lovenox 30 mg SQ daily (WT < 150 kg, CrCl > 10-29 mL/min) *Enoxaparin/Lovenox 30 mg SQ BID (WT < 150 kg, CrCl > 30 mL/min) AND *Sequential Compression Device (SCD) Assessment and Plan Problem List: (1) Sepsis ICD Code: A41.9 - Sepsis, unspecified organism Status: Acute (2) Abscess of right arm ICD Code: L02.413 - Cutaneous abscess of right upper limb Status: Acute (3) Hyponatremia ICD Code: E87.1 - Hypo-osmolality and hyponatremia Status: Acute (4) COPD (chronic obstructive pulmonary disease) ICD Code: J44.9 - Chronic obstructive pulmonary disease, unspecified Status: Chronic (5) Tobacco abuse ICD Code: Z72.0 - Tobacco use Assessment and Plan A/P: 1. Sepsis: Temp 99.7, HR 117, WBC 14.2, Source-RUE cellulitis/abscess. S/p Blood/Wound Cultures, Vanc/Zosyn in ER. Follow up cultures, continue IV Abx. 2. RUE Abscess: w/ surrounding cellulitis, symptoms starting approx 1wk ago, now w/ progressive redness/swelling x2-3 days. X-ray w/ soft tissue swelling, images reviewed by me. S/p Vanc/Zosyn as above, continue w/ IV Abx. Follow up cultures. 3. Hyponatremia: Na 127. IVF for hydration, will repeat labs. 4. COPD: Chronic Respiratory Failure. Stable. Resume home MDI/Neb 5. Tobacco Abuse: Pt counselled. NicoDerm prn if needed. 6. DVT Prophylaxis: SCD/Teds. 7. Social work for d/c planning as needed. 8. Case discussed w/ ER physician at length Physician Certification 2 Midnight Certification Type: Admission for Inpatient Services Order for Inpatient Services The services are ordered in accordance with Medicare regulations or non- Medicare payer requirements, as applicable. In the case of services not specified as inpatient-only, they are appropriately provided as inpatient services in accordance with the 2-midnight benchmark. Estimated LOS (days): 2 days is the estimated time the patient will need to remain in the hospital, assuming treatment plan goals are met and no additional complications. Post-Hospital Plan: Not yet determined Problem Qualifiers (1) Sepsis: Qualified Codes: A41.9 - Sepsis, unspecified organism Mazal,Shefali MD May 05, 2017 04:47
[2017-05-05] MEDS: SODIUM CHLOR 0.9% 1000 ML INJ 1,000 ML IV SCH ×3 (06:18→23:36)
[2017-05-05] MEDS: LORATADINE 10 MG TAB PO SCH (07:52)
[2017-05-05] MEDS: BACLOFEN 10 MG TAB PO SCH ×4 (07:52→20:50)
[2017-05-05] MEDS: DOCUSATE SODIUM 50 MG/SENNA 8.6 MG TAB PO SCH ×2 (07:52→20:50)
[2017-05-05] MEDS: SODIUM CHLORIDE 0.9% FLUSH 10 ML FLUSH IV FLUSH SCH ×2 (07:53→20:52)
[2017-05-05] MEDS: GABAPENTIN 400 MG CAP PO SCH ×4 (07:53→20:50)
[2017-05-05 08:00] VITALS: BP 123/67; PULSE 95; RESP 17; TEMP 98.3; O2SAT 96
[2017-05-05] MEDS: carBAMazepine 200 MG TAB PO SCH ×3 (11:15→21:00)
[2017-05-05 12:00] VITALS: BP 110/60; PULSE 99; RESP 17; TEMP 98.1; O2SAT 98
--- NOTE | 2017-05-05 14:21 | HHI.PR ---
Subjective Remarks Patient seen and examined this morning. Vitals are stable he's afebrile. Sitting in bed comfortably, states swelling has gotten a little bit better but continues to be red and swollen and is draining. States he thinks he was bit by a bug. Otherwise no difficulty breathing and no CP. Objective Vital Signs Date Time Temp Pulse Resp B/P (MAP) Pulse Ox O2 Delivery O2 Flow Rate FiO2 05/05/17 12:15 16 05/05/17 12:00 98.1 99 17 110/60 (77) 98 05/05/17 08:00 98.3 95 17 123/67 (85) 96 05/05/17 05:00 05/05/17 02:46 98.9 105 18 126/64 (84) 99 Room Air 05/05/17 01:57 99.7 117 18 131/68 (89) 96 I/O 05/04/17 05/04/17 05/04/17 05/05/17 05/05/17 05/05/17 07:00 15:00 23:00 07:00 15:00 23:00 Intake Total 590 ml Output Total 400 ml Balance 190 ml Intake Oral 240 ml IV Total 350 ml Output Urine Total 400 ml Result Diagram: 05/05/17 0235 05/05/17 0235 Imaging Last Impressions Radius/Ulna X-Ray 05/05/17 0000 Signed Impressions: Service Date/Time: Friday, May 05, 2017 02:47 - CONCLUSION: Soft tissue swelling. Brodie Jorgensen MD Objective Remarks GENERAL: well appearing, nad SKIN: Warm and dry. HEAD: Normocephalic. EYES: No scleral icterus. No injection or drainage. NECK: Supple, trachea midline. No JVD or lymphadenopathy. CARDIOVASCULAR: Regular rate and rhythm without murmurs, gallops, or rubs. RESPIRATORY: Breath sounds equal bilaterally. No accessory muscle use. GASTROINTESTINAL: Abdomen soft, non-tender, nondistended. MUSCULOSKELETAL: rt upper extremity with approx 1-2 cm wound that is draining serous fluid, surrounding erythema and induration is noted. No palpable abscess. Is not warm to touch. He is able to wiggle his fingers. There is no calf tenderness. A/P Problem List: (1) Sepsis ICD Code: A41.9 - Sepsis, unspecified organism Status: Acute (2) Abscess of right arm ICD Code: L02.413 - Cutaneous abscess of right upper limb Status: Acute (3) COPD (chronic obstructive pulmonary disease) ICD Code: J44.9 - Chronic obstructive pulmonary disease, unspecified Status: Chronic (4) Tobacco abuse ICD Code: Z72.0 - Tobacco use Assessment and Plan 66-year-old male with Right upper arm cellulitis: Met sepsis criteria on admission. X-ray significant for soft tissue swelling. Currently on vancomycin and Zosyn. Blood and wound cultures are pending. We'll tailor antibiotics based on these results. COPD: Continue home MDI/nebulizer Tobacco abuse: Counseled. NicoDerm patch. Hyperlipidemia: Continue atorvastatin 80 mg at bedtime DVT prophylaxis: Bilateral SCDs Discharge Planning D/C pending further clinical improvement. Problem Qualifiers (1) Sepsis: Qualified Codes: A41.9 - Sepsis, unspecified organism Hansa Orr MD May 05, 2017 14:21
[2017-05-05 16:00] VITALS: BP 121/69; PULSE 99; RESP 17; TEMP 98.3; O2SAT 97
[2017-05-05] MEDS: VANCOMYCIN INJ 1,250 MG in SODIUM CHLOR 0.9% 250 ML INJ 250 ML IV SCH (16:52)
[2017-05-05 20:00] VITALS: BP 126/66; PULSE 98; RESP 20; TEMP 98.4; O2SAT 99
[2017-05-05] MEDS: ATORVASTATIN 80 MG TAB PO SCH (20:50)
[2017-05-05] MEDS: CEFEPIME INJ 1,000 MG in SODIUM CHLORIDE 0.9% INJ 100 ML IV SCH (20:52)
[2017-05-06] VITALS (7 sets, daily range): BP systolic 97–128; BP diastolic 55–68; PULSE 80–99; RESP 16–20; TEMP 96.4–99; O2SAT 92–97
[2017-05-06] MEDS: MORPHINE SULFATE 15 MG CONTROLLED RELEASE TAB PO SCH ×3 (03:43→19:45)
[2017-05-06] MEDS: VANCOMYCIN INJ 1,250 MG in SODIUM CHLOR 0.9% 250 ML INJ 250 ML IV SCH ×2 (03:44→17:18)
[2017-05-06 06:59] LABS: AUTOMATED NEUTROPHIL # 9.2 TH/MM3 (1.8-7.7); BASOPHIL # 0.1 TH/MM3 (0-0.2); BASOPHIL % 0.5 % (0.0-2.0); EOSINOPHIL # 0.3 TH/MM3 (0-0.4); EOSINOPHIL % 2.8 % (0.0-4.0); HEMATOCRIT 37.7 % (39.0-51.0); HEMO FLAGS DIFF FINAL; LYMPHOCYTE # 1.3 TH/MM3 (1.0-4.8); MEAN CELL VOLUME 90.7 FL (80.0-100.0); MEAN CORPUSCULAR HEMOGLOBIN 30.6 PG (27.0-34.0); MEAN CORPUSCULAR HGB CONC 33.7 % (32.0-36.0); MONO % 7.1 % (0.0-8.0); NEUT % 78.6 % (16.0-70.0); PLATELET COUNT 204 TH/MM3 (150-450); RED BLOOD COUNT 4.15 MIL/MM3 (4.50-5.90); RED CELL DISTRIBUTION WIDTH 14.1 % (11.6-17.2); WHITE BLOOD COUNT 11.8 TH/MM3 (4.0-11.0)
[2017-05-06 07:28] LABS: ALKALINE PHOSPHATASE 112 U/L (45-117); ALT (GPT) 19 U/L (12-78); ANION GAP 8 MEQ/L (5-15); AST (GOT) 13 U/L (15-37); BICARBONATE 26.7 MEQ/L (21.0-32.0); BLOOD UREA NITROGEN 5 MG/DL (7-18); CHLORIDE 98 MEQ/L (98-107); GLOMERULAR FILTRATION RATE 261 ML/MIN (>89); POTASSIUM 3.7 MEQ/L (3.5-5.1); SODIUM (NA) 133 MEQ/L (136-145); TOTAL BILIRUBIN ADULT 0.2 MG/DL (0.2-1.0)
--- NOTE | 2017-05-06 08:24 | HHI.PR ---
Subjective Remarks Patient seen and examined this morning. Vitals are stable he's afebrile. Feels he has more movement in had. It is painful, continues to be painful. Discussed with nurse not asking for pain medication. Objective Vital Signs Date Time Temp Pulse Resp B/P (MAP) Pulse Ox O2 Delivery O2 Flow Rate FiO2 05/06/17 08:00 99.0 99 17 116/63 (80) 92 05/06/17 04:00 98.2 95 18 128/68 (88) 95 05/06/17 00:00 98.4 98 20 106/55 (72) 97 05/05/17 20:00 98.4 98 20 126/66 (86) 99 05/05/17 16:00 98.3 99 17 121/69 (86) 97 05/05/17 12:15 16 05/05/17 12:00 98.1 99 17 110/60 (77) 98 I/O 05/05/17 05/05/17 05/05/17 05/06/17 05/06/17 05/06/17 07:00 15:00 23:00 07:00 15:00 23:00 Intake Total 590 ml 490 ml 742.5 ml Output Total 400 ml 1925 ml 950 ml Balance 190 ml -1435 ml -207.5 ml Intake Oral 240 ml 240 ml 480 ml IV Total 350 ml 250 ml 262.5 ml Output Urine Total 400 ml 1925 ml 950 ml # Bowel Movements 0 0 Result Diagram: 05/06/17 0549 05/06/17 0549 Imaging Last Impressions Radius/Ulna X-Ray 05/05/17 0000 Signed Impressions: Service Date/Time: Friday, May 05, 2017 02:47 - CONCLUSION: Soft tissue swelling. Brodie Jorgensen MD Objective Remarks GENERAL: well appearing, nad SKIN: see below. HEAD: Normocephalic. EYES: No scleral icterus. No injection or drainage. NECK: Supple, trachea midline. No JVD or lymphadenopathy. CARDIOVASCULAR: Regular rate and rhythm without murmurs, gallops, or rubs. RESPIRATORY: Breath sounds equal bilaterally. No accessory muscle use. GASTROINTESTINAL: Abdomen soft, non-tender, nondistended. MUSCULOSKELETAL: rt upper extremity with approx 1-2 cm wound that is draining serous fluid, surrounding erythema and induration is noted. Erythema from elbow to wrist, area is marked. Significant diffuse swelling. No palpable abscess. Is warm to touch. He is able to wiggle his fingers. Palpable radial and ulnar pulses. There is no calf tenderness. A/P Problem List: (1) Sepsis ICD Code: A41.9 - Sepsis, unspecified organism Status: Acute (2) Abscess of right arm ICD Code: L02.413 - Cutaneous abscess of right upper limb Status: Acute (3) COPD (chronic obstructive pulmonary disease) ICD Code: J44.9 - Chronic obstructive pulmonary disease, unspecified Status: Chronic (4) Tobacco abuse ICD Code: Z72.0 - Tobacco use Assessment and Plan 66-year-old male with Right upper arm cellulitis: Met sepsis criteria on admission. X-ray significant for soft tissue swelling. Currently on vancomycin and Zosyn. Blood and wound cultures are pending. We'll tailor antibiotics based on these results. - motrin 600 mg q8hr mateo COPD: Continue home MDI/nebulizer Tobacco abuse: Counseled. NicoDerm patch. Hyperlipidemia: Continue atorvastatin 80 mg at bedtime DVT prophylaxis: Bilateral SCDs Discharge Planning D/C pending further clinical improvement. Problem Qualifiers (1) Sepsis: Qualified Codes: A41.9 - Sepsis, unspecified organism Hansa Orr MD May 06, 2017 08:23
[2017-05-06] MEDS: BACLOFEN 10 MG TAB PO SCH ×4 (08:31→20:21)
[2017-05-06] MEDS: LORATADINE 10 MG TAB PO SCH (08:31)
[2017-05-06] MEDS: DOCUSATE SODIUM 50 MG/SENNA 8.6 MG TAB PO SCH ×2 (08:31→20:21)
[2017-05-06] MEDS: SODIUM CHLORIDE 0.9% FLUSH 10 ML FLUSH IV FLUSH SCH ×2 (08:32→21:00)
[2017-05-06] MEDS: GABAPENTIN 400 MG CAP PO SCH ×4 (08:32→20:21)
[2017-05-06] MEDS: carBAMazepine 200 MG TAB PO SCH ×3 (08:32→20:22)
[2017-05-06] MEDS: CEFEPIME INJ 1,000 MG in SODIUM CHLORIDE 0.9% INJ 100 ML IV SCH ×2 (08:32→21:00)
[2017-05-06] MEDS: SODIUM CHLOR 0.9% 1000 ML INJ 1,000 ML IV SCH ×2 (08:38→19:36)
[2017-05-06] MEDS: IBUPROFEN 600 MG TAB PO SCH ×3 (10:21→20:21)
[2017-05-06] MEDS: ACETAMINOPHEN/HYDROcodone 325 MG/5 MG TAB PO PRN ×2 (17:28→20:21)
[2017-05-06] MEDS: ATORVASTATIN 80 MG TAB PO SCH (20:20)
[2017-05-07 01:11] VITALS: BP 113/61; PULSE 70; RESP 17; TEMP 97.1; O2SAT 97
[2017-05-07] MEDS: ACETAMINOPHEN/HYDROcodone 325 MG/5 MG TAB PO PRN ×4 (02:36→23:10)
[2017-05-07] MEDS ORDERED: PHARMACY ORDERED LAB ONE (03:45)
[2017-05-07] MEDS: MORPHINE SULFATE 15 MG CONTROLLED RELEASE TAB PO SCH ×3 (03:50→20:11)
[2017-05-07 04:44] VITALS: BP 100/60; PULSE 79; RESP 18; TEMP 97.8; O2SAT 98
[2017-05-07] MEDS: IBUPROFEN 600 MG TAB PO SCH ×3 (05:22→23:09)
[2017-05-07] MEDS: VANCOMYCIN INJ 1,250 MG in SODIUM CHLOR 0.9% 250 ML INJ 250 ML IV SCH (05:22)
[2017-05-07] MEDS: SODIUM CHLOR 0.9% 1000 ML INJ 1,000 ML IV SCH ×2 (05:23→13:52)
[2017-05-07 08:00] VITALS: BP 115/65; PULSE 78; RESP 20; TEMP 96.9; O2SAT 98
[2017-05-07] MEDS: DOCUSATE SODIUM 50 MG/SENNA 8.6 MG TAB PO SCH ×2 (08:40→20:12)
[2017-05-07] MEDS: GABAPENTIN 400 MG CAP PO SCH ×4 (08:40→20:12)
[2017-05-07] MEDS: LORATADINE 10 MG TAB PO SCH (08:40)
[2017-05-07] MEDS: carBAMazepine 200 MG TAB PO SCH ×3 (08:40→20:13)
[2017-05-07] MEDS: BACLOFEN 10 MG TAB PO SCH ×4 (08:41→20:11)
[2017-05-07] MEDS: CEFEPIME INJ 1,000 MG in SODIUM CHLORIDE 0.9% INJ 100 ML IV SCH (08:44)
[2017-05-07] MEDS: SODIUM CHLORIDE 0.9% FLUSH 10 ML FLUSH IV FLUSH SCH ×2 (08:44→20:11)
--- NOTE | 2017-05-07 10:16 | PD.PN.STU ---
Subjective Remarks 66yo male with a PMH of Anxiety, HTN, Hyperlipidemia, COPD and Tobacco Abuse who presents to ER (05/05) with complaints of right arm redness and swelling x2- 3 days. States about a week ago he felt something sharp on his arm, went to smack it but didn't notice any bug/spider, few days later noticed redness/ swelling to hand, now involving entire arm. Today noticed "bump" and squeezed it. Denies fever or chills. On arrival, BP 131/60, HR 117, O2 sat 96% on RA, Temp 99.7. WBC 14.2. Na 127. Lactic Acid normal at 0.9. There are 0.9. Radius/Ulna X-ray was soft tissue swelling. On exam, pt w/ open abscess w/ purulent secretions. S/p Wound/Blood Culture, Vanc/Zosyn in ER. PMH: Anxiety, HTN, Hyperlipidemia, COPD and Tobacco Abuse PSH: Spine Screws FH: No h/o DM or CAD SH: denies alcohol or illegal drugs. Smokes 1/2ppd. Allergies: NKDA 05/07- Pt is in bed during the examination and has no complaints. Pt reports feeling better and is eager to go home. Reports improved pain in his right arm and numbness/tingling in both hands that is worse in the right, however these sensations are longstanding. Reports a runny nose, congestion, SOB, RLQ pain, and constipation. Denies NORMAN, CP, generalized abdominal pain, nausea, vomiting, fever, chills, leg swelling and pain. Objective Vitals Vital Signs Date Time Temp Pulse Resp B/P (MAP) Pulse Ox O2 Delivery O2 Flow Rate FiO2 05/07/17 08:00 96.9 78 20 115/65 (82) 98 05/07/17 06:22 18 05/07/17 04:50 18 05/07/17 04:44 97.8 79 18 100/60 (73) 98 05/07/17 03:36 18 05/07/17 01:11 97.1 70 17 113/61 (78) 97 05/06/17 20:29 82 05/06/17 20:00 96.4 80 16 97/56 (70) 97 05/06/17 16:00 98.9 88 17 105/61 (76) 97 05/06/17 12:00 98.9 95 17 117/61 (79) 96 I/O 05/06/17 05/06/17 05/06/17 05/07/17 05/07/17 05/07/17 07:00 15:00 23:00 07:00 15:00 23:00 Intake Total 742.5 ml 1100 ml 962.5 ml 2920 ml 120 ml Output Total 950 ml 1100 ml 600 ml Balance -207.5 ml 1100 ml -137.5 ml 2320 ml 120 ml Intake Oral 480 ml 600 ml 720 ml 120 ml IV Total 262.5 ml 1100 ml 362.5 ml 2200 ml Output Urine Total 950 ml 1100 ml 600 ml # Voids 2 # Bowel Movements 0 0 0 Result Diagram: 05/06/17 0549 05/06/17 0549 Other Results Laboratory Tests Test 05/05/17 02:35 05/05/17 02:40 05/06/17 05:49 05/07/17 03:50 White Blood Count 14.2 TH/MM3 (4.0-11.0) 11.8 TH/MM3 (4.0-11.0) Neutrophils (%) (Auto) 84.4 % (16.0-70.0) 78.6 % (16.0-70.0) Lymphocytes (%) (Auto) 5.8 % (9.0-44.0) Monocytes (%) (Auto) 8.4 % (0.0-8.0) Neutrophils # (Auto) 12.0 TH/MM3 (1.8-7.7) 9.2 TH/MM3 (1.8-7.7) Lymphocytes # (Auto) 0.8 TH/MM3 (1.0-4.8) Monocytes # (Auto) 1.2 TH/MM3 (0-0.9) Activated Partial Thromboplast Time 34.5 SEC (24.3-30.1) Creatinine 0.54 MG/DL (0.60-1.30) 0.34 MG/DL (0.60-1.30) Phosphorus Level 2.4 MG/DL (2.5-4.9) Alkaline Phosphatase 164 U/L (45-117) Sodium Level 127 MEQ/L (136-145) 133 MEQ/L (136-145) Chloride Level 92 MEQ/L (98-107) Anion Gap 3 MEQ/L (5-15) Red Blood Count 4.15 MIL/MM3 (4.50-5.90) Hemoglobin 12.7 GM/DL (13.0-17.0) Hematocrit 37.7 % (39.0-51.0) Blood Urea Nitrogen 5 MG/DL (7-18) Total Protein 5.5 GM/DL (6.4-8.2) Albumin 2.4 GM/DL (3.4-5.0) Calcium Level 8.0 MG/DL (8.5-10.1) Aspartate Amino Transf (AST/SGOT) 13 U/L (15-37) Imaging Last Impressions Radius/Ulna X-Ray 05/05/17 0000 Signed Impressions: Service Date/Time: Friday, May 05, 2017 02:47 - CONCLUSION: Soft tissue swelling. Brodie Jorgensen MD Objective Remarks GENERAL: very pleasant, WDWN male who was in NAD SKIN: Rt arm erythematous, edematous, and mildly tender to palpation. Erythema and swelling improved compared to past markings. Rt. arm and fingers has full ROM, radial and ulnar pulses 2+, capillary refill less than 2s. A 4cm mobile, nontender, nonerythematous mass present medial to the Rt. deltoid. HEAD: Atraumatic. Normocephalic. EYES: Pupils equal and round. EOMI. No scleral icterus. No injection or drainage. ENT: No nasal bleeding or discharge. Mucous membranes pink and moist. NECK: Trachea midline. No JVD. CARDIOVASCULAR: Regular rate and rhythm. S1 and S2 heard, no murmurs, gallops, rubs. RESPIRATORY: No accessory muscle use. Clear to auscultation. Breath sounds equal bilaterally. GASTROINTESTINAL: RLQ tender to palpation. No masses appreciated. No distention , rebound or guarding. Bowel sounds present in all 4 quadrants. Rest of abdomen soft, non-tender. Hepatic and splenic margins not palpable. MUSCULOSKELETAL: Able to move all 4 extremities. No clubbing, cyanosis, or edema.No calf tenderness. No pain on plantarflexion bilaterally. NEUROLOGICAL: Awake and alert. No obvious cranial nerve deficits. Motor grossly within normal limits. Decreased sensation to light touch and pressure in both hands, but worse on the right. 1/5 muscle strength on Rt. hand label tacker and 3/5 on Lt hand label tacker. Five out of 5 muscle strength in the arms and legs. Normal speech. PSYCHIATRIC: Appropriate mood and affect; insight and judgment normal. Medications and IVs Current Medications Medications (Trade) Dose Ordered Sig/Whit Route Start Time Stop Time Status Last Admin Pharmacy Profile Note 0 ml @ 0 mls/hr UNSCH OTHER 05/05/17 03:45 Cefepime HCl 1000 mg/Sodium Chloride 100 ml @ 200 mls/hr Q12H IV 05/05/17 21:00 05/07/17 08:44 Sodium Chloride 1,000 ml @ 100 mls/hr Q10H IV 05/05/17 03:36 05/07/17 05:23 (NS Flush) 2 ml UNSCH PRN IV FLUSH 05/05/17 03:45 05/05/17 06:19 (NS Flush) 2 ml BID IV FLUSH 05/05/17 09:00 05/07/17 08:44 (Zofran Inj) 4 mg Q6H PRN IVP 05/05/17 03:45 (Tylenol) 650 mg Q6H PRN PO 05/05/17 03:45 ([place] 5-325 Mg) 1 tab Q4H PRN PO 05/05/17 03:45 05/07/17 08:42 (Morphine Inj) 2 mg Q3H PRN IV PUSH 05/05/17 03:45 (Lsia-Colace) 1 tab BID PO 05/05/17 09:00 05/07/17 08:40 (Milk Of Magnesia Liq) 30 ml Q12H PRN PO 05/05/17 03:45 (Senokot) 17.2 mg Q12H PRN PO 05/05/17 03:45 (Dulcolax Supp) 10 mg DAILY PRN RECTAL 05/05/17 03:45 (Lactulose Liq) 30 ml DAILY PRN PO 05/05/17 03:45 (Proair Hfa Inh) 2 puff Q4H PRN INH 05/05/17 03:45 05/07/17 08:46 (Lipitor) 80 mg HS PO 05/05/17 21:00 05/06/17 20:20 (Lioresal) 10 mg QID PO 05/05/17 09:00 05/07/17 08:41 (TEGretol) 200 mg HS PO 05/05/17 21:00 05/06/17 20:22 (Neurontin) 800 mg QID PO 05/05/17 09:00 05/07/17 08:40 (Claritin) 10 mg DAILY PO 05/05/17 09:00 05/07/17 08:40 (Oramorph Sr) 15 mg Q8H PO 05/05/17 03:45 05/07/17 03:50 (TEGretol) 400 mg DAILY@0900,1700 PO 05/06/17 09:00 05/07/17 08:40 (Motrin) 600 mg Q8HR PO 05/06/17 08:45 05/07/17 05:22 Vancomycin HCl 1000 mg/Sodium Chloride 250 ml @ 250 mls/hr Q8H IV 05/07/17 14:00 Miscellaneous Information SPECIFIC LAB TO BE DRAWN:VANCOMY... ONCE ONCE .XX 05/08/17 13:45 05/08/17 13:46 A/P Assessment and Plan Right upper arm cellulitis- improved -Met sepsis criteria on admission on 05/05 -X-ray performed on 05/05 significant for soft tissue swelling -cont vancomycin, Zosyn, and cefepime. Vanc trough 7.8, goal is 05-06. -Blood cultures negative on 05/05 -Wound culture positive for MRSA -WBC improved from 14.2 on admission to 11.8 on 05/06. cont to monitor COPD -Continue home MDI/nebulizer Tobacco abuse -Discussed risks and hazards. Counseled tobacco cessation NicoDerm patch. Hyperlipidemia: Continue atorvastatin 80 mg at bedtime Constipation- no BM since 05/06 -cont IVF and current laxatives Hyponatremia- improved from Na 127 on admission to 133 on 05/06 -cont IVF, monitor labs -supplement as needed DVT prophylaxis: Bilateral SCDs Discharge Planning D/C pending further clinical improvement. Discussed at length with Mone Roche MS III . Agree with above Mone Roche M3 May 07, 2017 10:16 Jimena Bean MD May 07, 2017 18:25
[2017-05-07 12:00] VITALS: BP 109/64; PULSE 94; RESP 20; TEMP 98.6; O2SAT 96
[2017-05-07] MEDS: VANCOMYCIN 1,000 MG/NS 250 ML IV SCH ×4 (13:52→23:08)
[2017-05-07 16:00] VITALS: BP 150/60; PULSE 98; RESP 20; TEMP 99.2; O2SAT 97
--- NOTE | 2017-05-07 18:27 | HHI.PR ---
Subjective Remarks Pt reports feeling better. Reports improved pain in his right arm and numbness/ tingling in both hands that is worse in the right, however these sensations are not new. Redness and swelling improved. Had a BM after lax today Denies SOB, cp. Denies NORMAN, generalized abdominal pain, nausea, vomiting, fever. No chills. No leg swelling or pain. Objective Vitals Vital Signs Date Time Temp Pulse Resp B/P (MAP) Pulse Ox O2 Delivery O2 Flow Rate FiO2 05/07/17 16:00 99.2 98 20 150/60 (90) 97 05/07/17 15:03 18 05/07/17 15:03 18 05/07/17 12:00 98.6 94 20 109/64 (79) 96 05/07/17 10:22 18 05/07/17 08:00 96.9 78 20 115/65 (82) 98 05/07/17 04:44 97.8 79 18 100/60 (73) 98 05/07/17 01:11 97.1 70 17 113/61 (78) 97 05/06/17 20:29 82 05/06/17 20:00 96.4 80 16 97/56 (70) 97 I/O 05/06/17 05/06/17 05/06/17 05/07/17 05/07/17 05/07/17 06:59 14:59 22:59 06:59 14:59 22:59 Intake Total 742.5 ml 1100 ml 962.5 ml 2920 ml 120 ml Output Total 950 ml 1100 ml 600 ml Balance -207.5 ml 1100 ml -137.5 ml 2320 ml 120 ml Intake Oral 480 ml 600 ml 720 ml 120 ml IV Total 262.5 ml 1100 ml 362.5 ml 2200 ml Output Urine Total 950 ml 1100 ml 600 ml # Voids 2 # Bowel Movements 0 0 0 Result Diagram: 05/06/17 0549 05/06/17 0549 Imaging Last Impressions Radius/Ulna X-Ray 05/05/17 0000 Signed Impressions: Service Date/Time: Friday, May 05, 2017 02:47 - CONCLUSION: Soft tissue swelling. Brodie Jorgensen MD Objective Remarks GENERAL: very pleasant, WDWN male who was in NAD SKIN: Rt arm erythematous, edematous, and mildly tender to palpation. Erythema and swelling improved compared to past markings. Rt. arm and fingers has full ROM, radial and ulnar pulses 2+, capillary refill less than 2s. A 4cm mobile, nontender, nonerythematous mass present medial to the Rt. deltoid. CARDIOVASCULAR: Regular rate and rhythm. S1 and S2 heard, no murmurs, gallops, rubs. RESPIRATORY: No accessory muscle use. Clear to auscultation. Breath sounds equal bilaterally. GASTROINTESTINAL: RLQ tender to palpation. No masses appreciated. No distention , rebound or guarding. Bowel sounds present in all 4 quadrants. Rest of abdomen soft, non-tender. Hepatic and splenic margins not palpable. MUSCULOSKELETAL: Able to move all 4 extremities. No clubbing, cyanosis, or edema.No calf tenderness. No pain on plantarflexion bilaterally. NEUROLOGICAL: Awake and alert. No obvious cranial nerve deficits. Motor grossly within normal limits. Decreased sensation to light touch and pressure in both hands, but worse on the right. 1/5 muscle strength on Rt. hand harness worker and 3/5 on Lt hand harness worker. Five out of 5 muscle strength in the arms and legs. Normal speech. PSYCHIATRIC: Appropriate mood and affect; insight and judgment normal. A/P Problem List: (1) Sepsis ICD Code: A41.9 - Sepsis, unspecified organism Status: Acute (2) Abscess of right arm ICD Code: L02.413 - Cutaneous abscess of right upper limb Status: Acute (3) Hyponatremia ICD Code: E87.1 - Hypo-osmolality and hyponatremia Status: Acute (4) COPD (chronic obstructive pulmonary disease) ICD Code: J44.9 - Chronic obstructive pulmonary disease, unspecified Status: Chronic (5) Tobacco abuse ICD Code: Z72.0 - Tobacco use Assessment and Plan Right upper arm cellulitis MRSA wound- improved -Met sepsis criteria on admission on 05/05 , imprpving -X-ray performed on 05/05 significant for soft tissue swelling -cont vancomycin, Zosyn, and cefepime. Vanc trough 7.8, goal is 05-06. -Blood cultures negative on 05/05 -Wound culture positive for MRSA . Blood cx NTD , DC zosyn and cefepime -WBC improved from 14.2 on admission to 11.8 on 05/06. cont to monitor COPD -Continue home MDI/nebulizer Tobacco abuse -Discussed risks and hazards. Counseled tobacco cessation NicoDerm patch. Hyperlipidemia: Continue atorvastatin 80 mg at bedtime Constipation- no BM since 05/06 -cont IVF and current laxatives Hyponatremia- improved from Na 127 on admission to 133 on 05/06 -cont IVF, monitor labs -supplement as needed DVT prophylaxis: Bilateral SCDs Discharge Planning D/C poss tomorrow if blood cx neg Problem Qualifiers (1) Sepsis: Qualified Codes: A41.9 - Sepsis, unspecified organism Jimena Bean MD May 07, 2017 18:27
[2017-05-07 20:00] VITALS: BP 125/64; PULSE 97; RESP 20; TEMP 98.1; O2SAT 97
[2017-05-07] MEDS: ATORVASTATIN 80 MG TAB PO SCH (23:07)
[2017-05-08 01:40] VITALS: BP 127/74; PULSE 85; RESP 20; TEMP 96; O2SAT 97
[2017-05-08] MEDS: MORPHINE SULFATE 15 MG CONTROLLED RELEASE TAB PO SCH ×2 (03:28→12:00)
[2017-05-08] MEDS: SODIUM CHLOR 0.9% 1000 ML INJ 1,000 ML IV SCH ×2 (03:28→11:36)
[2017-05-08] MEDS: VANCOMYCIN 1,000 MG/NS 250 ML IV SCH ×2 (04:29)
[2017-05-08] MEDS: IBUPROFEN 600 MG TAB PO SCH (04:30)
[2017-05-08 05:30] VITALS: BP 116/71; PULSE 86; RESP 20; TEMP 97; O2SAT 98
[2017-05-08 06:30] LABS: AUTOMATED NEUTROPHIL # 3.8 TH/MM3 (1.8-7.7); BASOPHIL % 0.8 % (0.0-2.0); EOSINOPHIL # 0.5 TH/MM3 (0-0.4); EOSINOPHIL % 7.6 % (0.0-4.0); HEMO FLAGS DIFF FINAL; LYMPH % 21.1 % (9.0-44.0); LYMPHOCYTE # 1.3 TH/MM3 (1.0-4.8); MEAN CELL VOLUME 89.6 FL (80.0-100.0); MEAN CORPUSCULAR HGB CONC 34.6 % (32.0-36.0); MONO % 7.6 % (0.0-8.0); NEUT % 62.9 % (16.0-70.0); PLATELET COUNT 211 TH/MM3 (150-450); RED BLOOD COUNT 3.91 MIL/MM3 (4.50-5.90); RED CELL DISTRIBUTION WIDTH 13.5 % (11.6-17.2); WHITE BLOOD COUNT 6.1 TH/MM3 (4.0-11.0)
[2017-05-08 07:02] LABS: BICARBONATE 28.8 MEQ/L (21.0-32.0); POTASSIUM 3.9 MEQ/L (3.5-5.1)
[2017-05-08 07:59] VITALS: BP 130/71; PULSE 71; RESP 20; TEMP 97; O2SAT 96
[2017-05-08] MEDS: LORATADINE 10 MG TAB PO SCH (08:24)
[2017-05-08] MEDS: BACLOFEN 10 MG TAB PO SCH ×2 (08:24→12:00)
[2017-05-08] MEDS: DOCUSATE SODIUM 50 MG/SENNA 8.6 MG TAB PO SCH (08:24)
[2017-05-08] MEDS: carBAMazepine 200 MG TAB PO SCH (08:24)
[2017-05-08] MEDS: GABAPENTIN 400 MG CAP PO SCH ×2 (08:24→12:00)
[2017-05-08] MEDS: ACETAMINOPHEN/HYDROcodone 325 MG/5 MG TAB PO PRN (08:25)
[2017-05-08] MEDS: SODIUM CHLORIDE 0.9% FLUSH 10 ML FLUSH IV FLUSH SCH (08:26)
[2017-05-08] MEDS ORDERED: HYDR-3583 PO (10:48)
--- NOTE | 2017-05-08 10:48 | HHI.DS ---
Discharge Summary Admission Date May 05, 2017 at 03:37 Discharge Date: May 08, 2017 Admitting Diagnosis cellulitis, abscess, sepsis (1) Sepsis ICD Code: A41.9 - Sepsis, unspecified organism Status: Acute (2) Abscess of right arm ICD Code: L02.413 - Cutaneous abscess of right upper limb Status: Acute (3) Hyponatremia ICD Code: E87.1 - Hypo-osmolality and hyponatremia Status: Acute (4) COPD (chronic obstructive pulmonary disease) ICD Code: J44.9 - Chronic obstructive pulmonary disease, unspecified Status: Chronic (5) Tobacco abuse ICD Code: Z72.0 - Tobacco use Procedures none Brief History - From Admission This is a 66-year-old male with a PMH of Anxiety, HTN, Hyperlipidemia, COPD and Tobacco Abuse who presents to ER with complaints of right arm redness and swelling x2-3 days. States about a week ago he felt something sharp on his arm , went to smack it but didn't notice any bug/spider, few days later noticed redness/swelling to hand, now involving entire arm. Today noticed "bump" and squeezed it. Denies fever or chills. On arrival, BP 131/60, HR 117, O2 sat 96 % on RA, Temp 99.7. WBC 14.2. Na 127. Lactic Acid normal at 0.9. There are 0.9. Radius/Ulna X-ray was soft tissue swelling. On exam, pt w/ open abscess w / purulent secretions. S/p Wound/Blood Culture, Vanc/Zosyn in ER. CBC/BMP: 05/08/17 0610 05/08/17 0610 Significant Findings Laboratory Tests Test 05/06/17 05:49 05/07/17 03:50 05/08/17 06:10 White Blood Count 11.8 TH/MM3 (4.0-11.0) Red Blood Count 4.15 MIL/MM3 (4.50-5.90) 3.91 MIL/MM3 (4.50-5.90) Hemoglobin 12.7 GM/DL (13.0-17.0) 12.1 GM/DL (13.0-17.0) Hematocrit 37.7 % (39.0-51.0) 35.0 % (39.0-51.0) Neutrophils (%) (Auto) 78.6 % (16.0-70.0) Neutrophils # (Auto) 9.2 TH/MM3 (1.8-7.7) Blood Urea Nitrogen 5 MG/DL (7-18) 5 MG/DL (7-18) Creatinine 0.34 MG/DL (0.60-1.30) 0.38 MG/DL (0.60-1.30) Total Protein 5.5 GM/DL (6.4-8.2) Albumin 2.4 GM/DL (3.4-5.0) Calcium Level 8.0 MG/DL (8.5-10.1) 8.3 MG/DL (8.5-10.1) Aspartate Amino Transf (AST/SGOT) 13 U/L (15-37) Sodium Level 133 MEQ/L (136-145) 132 MEQ/L (136-145) Eosinophils (%) (Auto) 7.6 % (0.0-4.0) Eosinophils # (Auto) 0.5 TH/MM3 (0-0.4) Chloride Level 97 MEQ/L (98-107) Imaging Last Impressions Radius/Ulna X-Ray 05/05/17 0000 Signed Impressions: Service Date/Time: Friday, May 05, 2017 02:47 - CONCLUSION: Soft tissue swelling. Brodie Jorgensen MD PE at Discharge GENERAL: very pleasant, WDWN male who was in NAD SKIN: Rt arm erythematous, edematous, and mildly tender to palpation. Erythema and swelling improved compared to past markings. Rt. arm and fingers has full ROM, radial and ulnar pulses 2+, capillary refill less than 2s. A 4cm mobile, nontender, nonerythematous mass present medial to the Rt. deltoid. CARDIOVASCULAR: Regular rate and rhythm. S1 and S2 heard, no murmurs, gallops, rubs. RESPIRATORY: No accessory muscle use. Clear to auscultation. Breath sounds equal bilaterally. GASTROINTESTINAL: RLQ tender to palpation. No masses appreciated. No distention , rebound or guarding. Bowel sounds present in all 4 quadrants. Rest of abdomen soft, non-tender. Hepatic and splenic margins not palpable. MUSCULOSKELETAL: Able to move all 4 extremities. No clubbing, cyanosis, or edema.No calf tenderness. No pain on plantarflexion bilaterally. NEUROLOGICAL: Awake and alert. No obvious cranial nerve deficits. Motor grossly within normal limits. Decreased sensation to light touch and pressure in both hands, but worse on the right. 1/5 muscle strength on Rt. hand store shopper and 3/5 on Lt hand store shopper. Five out of 5 muscle strength in the arms and legs. Normal speech. PSYCHIATRIC: Appropriate mood and affect; insight and judgment normal. Pt update on day of discharge Feels much better. Edema and erythema is improved, .Wound care eval patient , will continue [facility] t [facility] . Patient wants to go home. No fever or chills. Eating well. Hospital Course Right upper arm cellulitis MRSA wound- improved -Met sepsis criteria on admission on 05/05 , improving -X-ray performed on 05/05 significant for soft tissue swelling -cont vancomycin, Zosyn, and cefepime. Vanc trough 7.8, goal is 05-06. -Blood cultures negative on 05/05 -Wound culture positive for MRSA . Blood cx NTD , DC zosyn and cefepime -WBC improved from 14.2 on admission to 11.8 on 05/06. cont to monitor COPD -Continue home MDI/nebulizer Tobacco abuse -Discussed risks and hazards. Counseled tobacco cessation NicoDerm patch. Hyperlipidemia: Continue atorvastatin 80 mg at bedtime Constipation- no BM since 05/06 -cont IVF and current laxatives Hyponatremia- improved from Na 127 on admission to 133 on 05/06 -cont IVF, monitor labs -supplement as needed DVT prophylaxis: Bilateral SCDs Discharge Planning Improved. Treat wound MRSA with Bactrim as OP PO. Blood cultures NTD. DC home with home health wound care to f/u for dressing changes q2 days. Patient discharged in stable condition to f.u as OP with PCP and consultants Pt Condition on Discharge: Good Discharge Disposition: Disch w/ Home Health Serv Discharge Time: > 30 minutes Discharge Instructions DIET: Follow Instructions for: As Tolerated, No Restrictions Activities you can perform: Regular-No Restrictions Follow up Referrals: PCP Follow-up - 2-3 Days New Medications: Lactobacillus Acidophilus (Lactinex) 1 Chew 1 TAB CHEW DAILY for Nutritional Supplement for 30 Days, #30 TAB 0 Refills Sulfamethoxazole-Trimethoprim (Bactrim DS) 800-160 Mg Tab 1 TAB PO BID for Infection, #28 TAB 0 Refills Continued Medications: Albuterol 18 GM Inh (Ventolin Hfa 18 GM Inh) 90 Mcg/Act Aer 2 PUFF INH Q4H PRN for SHORTNESS OF BREATH, #1 INHALER 0 Refills Atorvastatin (Atorvastatin) 80 Mg Tab 80 MG PO HS for Cholesterol Management, #30 TAB 0 Refills Baclofen (Baclofen) 10 Mg Tab 10 MG PO QID for MUSCLE SPASM, TAB 0 Refills Calcium Carbonate-Vitamin D (Calcium 600+D 200) 600-200 Mg-Unit Tab 1 TAB PO BID for Nutritional Supplement, #30 TAB 0 Refills Carbamazepine (Carbamazepine) 200 Mg Tab 200 MG PO HS, #60 TAB 0 Refills Carbamazepine (Carbamazepine) 200 Mg Tab 400 MG PO BID, #60 TAB 0 Refills Cholecalciferol (Vitamin D3) 2,000 Unit Cap 2000 UNITS PO DAILY for Nutritional Supplement, #56 CAP 0 Refills Fluticasone Nasal [place] (Flonase Nasal [place]) 50 Mcg/Act [place] 2 PUFF EACH NARE HS for Allergies, #1 BOTTLE 0 Refills Gabapentin (Gabapentin) 800 Mg Tab 800 MG PO QID, #90 TAB 0 Refills Hydrocodone-Acetaminophen (Hydrocodone-Acetaminophen) 10-325 mg Tab 1 TAB PO Q4H PRN for PAIN, #15 TAB 0 Refills (This prescription has been renewed ) Loratadine (Claritin) 10 Mg Cap 10 MG PO DAILY for Allergy Management, CAP 0 Refills Meloxicam (Meloxicam) 15 Mg Tab 15 MG PO DAILY for Arthritis Pain, #30 TAB 0 Refills Morphine ER (Morphine ER) 15 Mg Tab 15 MG PO Q8H for Pain Management, TAB 0 Refills Walker/Adult/Folding (Walker/Adult/Folding) 1 Mis Mis 1 EA .ROUTE DIRECTED, #1 EA 0 Refills Jimena Bean MD May 08, 2017 10:48
--- NOTE | 2017-05-08 10:50 | HHI.FF ---
Face to Face Verification Diagnosis: (1) Right arm cellulitis (2) Abscess of right arm Physical Therapy Order: Evaluate and Treat Home Health Nursing Order: Medical education Signs/symptoms of disease process Medication education-adverse effect Wound care and dressing changes Nursing assessment with vital signs Instructions: Change dressing every 2 days. Maxorb AG (or calcium Alginate) every 2 days. ABD pad roll gauze and tape. I have seen patient Humberto Guevara on 05/08/17. My clinical findings support the need for the requested home health care services because: Ltd mobility - disease progression I certify that my clinical findings support that this patient is homebound because: Post-op weakness Unsteady gait/balance Jimena Bean MD May 08, 2017 10:50
[2017-05-08 12:00] VITALS: BP 133/70; PULSE 90; RESP 19; TEMP 97.4; O2SAT 96
--- NOTE | 2017-05-08 12:45 | PD.WCN.NOT ---
Wound Consult Description: Received consult from Doctor Orr for wound management of R upper extremity. Communicated with: DEMETRIUS BURRELL and Doctor Bean. Recommendation: Please cleanse L upper extremity with normal saline and pat dry. Pack wound bed with Maxorb extra AG (Calcium Alginate AG) cut into single strip. Cover wound with ABD pad, secure dressing with rolled gauze and tape and change every 2 days or PRN if saturated or dislodged. Additional Information: Patient seen on for evaluation of R upper extremity wound management around 1145. Removed bordered gauze dressing in place to reveal abscess wound. Expressed a heavy amount of thick yellow purulent/ sanguinous drainage from wound bed. Drainage is noted with out foul odor. Periwound is noted with edema and erythema that has decreased from line previously drawn to selina erythema. Irrigated wound opening with 30 ml of normal saline Wound measures ~1cm x ~1cm x ~2cm. Wound is noted with 90% red tissue and 10% thick yellow exudate. Left open to air for now. DEMETRIUS BURRELL to apply dressing per wound care recommendations with supplies obtained. Isabel Rivera [facility] May 08, 2017 12:45
[2017-05-08] MEDS ORDERED: LINE1TAB PO (12:51)
[2017-05-08] MEDS ORDERED: BACT800T5 PO (12:53)
[2017-05-08] MEDS ORDERED: LACTCHW3 CHEW (12:54)
[2017-05-08 13:19] VITALS: RESP 20
[2017-05-08] MEDS ORDERED: PHARMACY ORDERED LAB ONE (13:45)
== END 2017-05-08 15:21 | disposition home health service (06) | DRG 872 ==
LOC: NEPC 01:44 → NEDA 03:37 → N07A 05:13
PROVIDERS: ADMIT Hospitalist; ATTEND Hospitalist
DX: A41.02 Sepsis due to Methicillin resistant Staphylococcus aureus (principal); J96.10 Chronic respiratory failure, unspecified whether with hypoxia or hypercapnia; L03.113 Cellulitis of right upper limb; E87.1 Hypo-osmolality and hyponatremia; L02.413 Cutaneous abscess of right upper limb; J44.9 Chronic obstructive pulmonary disease, unspecified; E78.5 Hyperlipidemia, unspecified; M19.90 Unspecified osteoarthritis, unspecified site; I10 Essential (primary) hypertension; K59.00 Constipation, unspecified; Z72.0 Tobacco use; Z79.899 Other long term (current) drug therapy
CPT/HCPCS: 73090; 80048; 80053; 80202; 83605; 83735; 84100; 85025; 85610; 85730; 86403; 87040; 87070; 87147; 87186; 87205; 96365; 96375; J0692; J2543; J3370; J7030; J7050

== ENCOUNTER 2017-05-18 11:44 | Inpatient (IN) | payer MEDICARE ==
[~2017-05-18] VITALS: Ht 182.9 cm; Wt 69.6 kg
[~2017-05-18 11:44] MED LIST changes: +BACT800T5 PO; -DOCU100C PO; -ERGO1CAP30 PO; +LACTCHW3 CHEW; +MORP1TAB24 PO; -XARE10TA PO
[2017-05-18 11:50] VITALS: BP 118/70; PULSE 92; RESP 16; TEMP 98; O2SAT 97
[2017-05-18] MEDS ORDERED: SODIUM CHLOR 0.9% 1000 ML INJ 1,000 ML IV ONE (12:30)
[2017-05-18] MEDS ORDERED: SODIUM CHLORIDE 0.9% FLUSH 10 ML FLUSH IV FLUSH PRN ×2 (12:30→18:15)
[2017-05-18 12:32] VITALS: BP 127/73; PULSE 91; RESP 16; TEMP 98.6; O2SAT 98
[2017-05-18] MEDS ORDERED: ASPI81CH37 CHEW (12:39)
--- NOTE | 2017-05-18 12:45 | PD ---
HPI Chief Complaint: Fall Time Seen by Provider: 12:27 Travel History International Travel<30 days: No Contact w/Intl Traveler<30days: No Traveled to known affect area: No History of Present Illness HPI 66-year-old male with PMH of CVA, HTN, HLD, COPD, MRSA, chronic pain, hyperlipidemia, solitary pulmonary nodule, chronic respiratory failure, chronic pain, cervical degenerative disc disease, right hip fracture, upper extremity neuropathy, trigeminal neuralgia presents to the ED for evaluation of bilateral hip and tailbone pain. Rated 7/10 on presentation. Worsened by certain movements. Onset after the patient fell multiple times over the last few days. He denies hitting his head or loss of consciousness. He does not take blood thinners. He has been ambulatory since the accident. He denies headache, dizziness, chest pain, palpitations, abdominal pain, nausea, vomiting, changes in bowel habits, dysuria. He treated at home with his normal pain medications including 15 mg morphine 3 times a day, 10 mg oxycodone 4 times a day. He is followed by the ID. PFSH Past Medical History Hx Anticoagulant Therapy: No Arthritis: Yes Anxiety: Yes Depression: No Cardiovascular Problems: No High Cholesterol: Yes COPD: Yes Endocrine: No Genitourinary: No Hypertension: Yes Immune Disorder: No Implanted Vascular Access Dvce: Yes Musculoskeletal: No Neurologic: Yes (trigeminal neuralgia) Psychiatric: No Reproductive: No Respiratory: Yes Sleep Apnea: No Past Surgical History Body Medical Devices: screws in hip Social History Alcohol Use: No Tobacco Use: Yes (half a pack per day) Substance Use: No Allergies-Medications (Allergen,Severity, Reaction): Coded Allergies: No Known Allergies (Unverified , 05/18/17) Reported Meds & Prescriptions Reported Meds & Active Scripts Active Hydrocodone-Acetaminophen 10-325 mg Tab 1 Tab PO Q4H PRN Calcium 600+D 200 (Calcium Carbonate-Vitamin D) 600-200 Mg-Unit Tab 1 Tab PO BID Vitamin D3 (Cholecalciferol) 2,000 Unit Cap 2,000 Units PO DAILY Walker/Adult/Folding (Device) 1 Mis Mis 1 Ea .ROUTE DIRECTED Reported Aspirin Low Dose (Aspirin) 81 Mg Chew 81 Mg CHEW DAILY Morphine ER (Morphine Sulfate) 15 Mg Tab 15 Mg PO Q8H Meloxicam 15 Mg Tab 15 Mg PO DAILY Claritin (Loratadine) 10 Mg Cap 10 Mg PO DAILY Flonase Nasal [place] (Fluticasone Nasal [place]) 50 Mcg/Act [place] 2 Puff EACH NARE HS Ventolin Hfa 18 GM Inh (Albuterol Sulfate) 90 Mcg/Act Aer 2 Puff INH Q4H PRN Carbamazepine 200 Mg Tab 400 Mg PO BID Gabapentin 800 Mg Tab 800 Mg PO QID Atorvastatin (Atorvastatin Calcium) 80 Mg Tab 80 Mg PO HS Baclofen 10 Mg Tab 10 Mg PO QID Carbamazepine 200 Mg Tab 200 Mg PO HS Review of Systems Except as stated in HPI: all other systems reviewed are Neg Physical Exam Narrative GENERAL: Well-nourished, well-developed thin, slow-moving white male in no acute distress. SKIN: Focused skin assessment warm/dry. Abrasion of the left elbow. Chronic appearing wound of the right forearm. Neither show warmth, erythema, drainage, fluctuance, induration. Chronic appearing warm erythema and edema of the bilateral lower extremities to the knees. Abrasion of the toes of the left foot. Tenderness and blood surrounding the great toe nail. HEAD: Normocephalic. Atraumatic. EYES: No scleral icterus. No injection or drainage. PERRLA. EOMI. NECK: Supple, trachea midline. No JVD or lymphadenopathy. Patient is wearing a c-collar. Tender to palpation in the midline. C-collar in place pending CT. CARDIOVASCULAR: Regular rate and rhythm without murmurs, gallops, or rubs. Equal pulses in the distal extremities bilaterally. RESPIRATORY: Breath sounds clear and equal bilaterally. No accessory muscle use. GASTROINTESTINAL: Abdomen soft, non-tender, nondistended. Active bowel sounds. MUSCULOSKELETAL: No cyanosis, or edema. No pain elicited with pelvic rocking. No tenderness to palpation of the bilateral shoulders, elbows, wrist. Strong supervisor food checkers and cashiers strength bilaterally. Patient is able to flex and extend bilateral hips and knees. Right leg weakness as compared to the left. Patient states this is normal. NEUROLOGICAL: Somewhat somnolent but rouses to voice. Follows commands appropriately. Cranial nerves II through XII intact. Motor and sensory grossly within normal limits. Five out of 5 muscle strength in all muscle groups. Normal speech. BACK: Nontender with rightward scoliosis. No CVA tenderness. Data Data Last Documented VS Vital Signs Date Time Temp Pulse Resp B/P (MAP) Pulse Ox O2 Delivery O2 Flow Rate FiO2 05/18/17 14:45 92 18 122/73 (89) 98 Room Air 05/18/17 12:32 98.6 Orders Orders Collar [place] (05/18/17 ) Complete Blood Count With Diff (05/18/17 12:22) Comprehensive Metabolic Panel (05/18/17 12:22) Prothrombin Time / Inr (Pt) (05/18/17 12:22) Act Partial Throm Time (Ptt) (05/18/17 12:22) Urinalysis - C+S If Indicated (05/18/17 12:22) Iv Access Insert/Monitor (05/18/17 12:22) Ecg Monitoring (05/18/17 12:22) Oximetry (05/18/17 12:22) Sodium Chloride 0.9% Flush (Ns Flush) (05/18/17 12:30) Ct Brain W/O Iv Contrast(Rout) (05/18/17 12:22) Ct Cerv Spine W/O Contrast (05/18/17 12:22) Foot, Complete (Vbs9qwt) (05/18/17 12:22) Toe (Min 2vws) (05/18/17 12:22) Sodium Chlor 0.9% 1000 Ml Inj (Ns 1000 M (05/18/17 12:30) Hip, Uni(Ap&Lat) Wo Ap Pelvis (05/18/17 ) Hip, Uni(Ap&Lat) W Ap Pelvis (05/18/17 ) Calcium Carbonate (Oscal) (05/18/17 15:00) Chest, Single Ap (05/18/17 ) Consult Podiatry (05/18/17 ) Admit Order (Ed Use Only) (05/18/17 15:51) Labs Laboratory Tests Test 05/18/17 12:45 White Blood Count 7.0 TH/MM3 Red Blood Count 4.32 MIL/MM3 Hemoglobin 13.2 GM/DL Hematocrit 38.8 % Mean Corpuscular Volume 89.8 FL Mean Corpuscular Hemoglobin 30.7 PG Mean Corpuscular Hemoglobin Concent 34.1 % Red Cell Distribution Width 14.1 % Platelet Count 265 TH/MM3 Mean Platelet Volume 7.5 FL Neutrophils (%) (Auto) 79.2 % Lymphocytes (%) (Auto) 11.7 % Monocytes (%) (Auto) 5.2 % Eosinophils (%) (Auto) 2.7 % Basophils (%) (Auto) 1.2 % Neutrophils # (Auto) 5.5 TH/MM3 Lymphocytes # (Auto) 0.8 TH/MM3 Monocytes # (Auto) 0.4 TH/MM3 Eosinophils # (Auto) 0.2 TH/MM3 Basophils # (Auto) 0.1 TH/MM3 CBC Comment DIFF FINAL Differential Comment Prothrombin Time 10.9 SEC Prothromb Time International Ratio 1.0 RATIO Activated Partial Thromboplast Time 33.3 SEC Blood Urea Nitrogen 8 MG/DL Creatinine 0.62 MG/DL Random Glucose 86 MG/DL Total Protein 6.7 GM/DL Albumin 3.1 GM/DL Calcium Level 8.3 MG/DL Alkaline Phosphatase 162 U/L Aspartate Amino Transf (AST/SGOT) 37 U/L Alanine Aminotransferase (ALT/SGPT) 32 U/L Total Bilirubin 0.2 MG/DL Sodium Level 135 MEQ/L Potassium Level 4.4 MEQ/L Chloride Level 100 MEQ/L Carbon Dioxide Level 29.5 MEQ/L Anion Gap 6 MEQ/L Estimat Glomerular Filtration Rate 131 ML/MIN [facility] Medical Decision Making Medical Screen Exam Complete: Yes Emergency Medical Condition: Yes Differential Diagnosis Musculoskeletal pain versus fracture versus cervical subluxation versus polypharmacy versus chronic weakness versus chronic pain versus other Narrative Course 66-year-old male with PMH of CVA, HTN, HLD, COPD, MRSA, chronic pain, hyperlipidemia, solitary pulmonary nodule, chronic respiratory failure, chronic pain, cervical degenerative disc disease, right hip fracture, upper extremity neuropathy, trigeminal neuralgia presents to the ED for evaluation of bilateral hip and tailbone pain. Rated 7/10 on presentation. Worsened by certain movements. Onset after the patient fell multiple times over the last few days. He denies hitting his head or loss of consciousness. He does not take blood thinners. [facility] reviewed. Physical exam reveals a somewhat somnolent man who rouses easily to voice. Patient moves extremities spontaneously and has no tenderness to palpation of the joints of the upper or lower extremities bilaterally. No pain elicited with hip rocking. 5/5 strength in the lower extremities. There is an avulsion of the toenail of the right great toe and some abrasions of the bilateral feet. No concerning abnormalities of the CBC, coags, UA. Calcium 7.9. He was administered 1 g calcium carbonate orally. Radiological studies reveal fracture of the right great toe, non-healed lesser trochanter fracture on the right, left sacral insufficiency fracture of the pelvis, solitary hypodensity in the right frontoparietal region questionable hemorrhage or shearing injury per radiology read. I spoke with Dr. Paris Almanza, who does not anticipate surgical intervention of the patients non healed lesser trochanter fracture. I spoke with Dr. Nicole regarding the CT head findings, he does not see any areas of concern on the CT. Consult placed to podiatry. I spoke with Dr. Alfaro who requests that I remove the great toenail. Please my procedure note for details. I spoke with the residents and Dr. Vincent who agree to accept the patient to the medicine service. Please see medicine notes for disposition. Procedures Procedure Narrative Toenail removal LOCATION: Right great toe REPAIR: The area of the laceration was prepped with Betadine and sterilely draped. A digital block was performed with 1% lidocaine. Adequate anesthesia was obtained. Sharp dissection was used to undermine the length of the great toenail. This was removed with slight traction. The wound was washed with copious sterile saline. Dressing was applied. Patient tolerated the procedure well. Sarah Platt May 18, 2017 12:45
[2017-05-18 13:01] LABS: AUTOMATED NEUTROPHIL # 5.5 TH/MM3 (1.8-7.7); BASOPHIL # 0.1 TH/MM3 (0-0.2); BASOPHIL % 1.2 % (0.0-2.0); EOSINOPHIL # 0.2 TH/MM3 (0-0.4); EOSINOPHIL % 2.7 % (0.0-4.0); HEMATOCRIT 38.8 % (39.0-51.0); HEMO FLAGS DIFF FINAL; LYMPH % 11.7 % (9.0-44.0); LYMPHOCYTE # 0.8 TH/MM3 (1.0-4.8); MEAN CELL VOLUME 89.8 FL (80.0-100.0); MEAN CORPUSCULAR HEMOGLOBIN 30.7 PG (27.0-34.0); MEAN CORPUSCULAR HGB CONC 34.1 % (32.0-36.0); MONO % 5.2 % (0.0-8.0); NEUT % 79.2 % (16.0-70.0); PLATELET COUNT 265 TH/MM3 (150-450); RED BLOOD COUNT 4.32 MIL/MM3 (4.50-5.90); RED CELL DISTRIBUTION WIDTH 14.1 % (11.6-17.2)
[2017-05-18 13:09] LABS: APTT (PATIENT) 33.3 SEC (24.3-30.1); PROTHROMBIN TIME - PATIENT 10.9 SEC (9.8-11.6)
[2017-05-18 13:36] LABS: ALKALINE PHOSPHATASE 162 U/L (45-117); TOTAL BILIRUBIN ADULT 0.2 MG/DL (0.2-1.0)
[2017-05-18 13:37] LABS: ALT (GPT) 32 U/L (12-78); ANION GAP 6 MEQ/L (5-15); AST (GOT) 37 U/L (15-37); BICARBONATE 29.5 MEQ/L (21.0-32.0); BLOOD UREA NITROGEN 8 MG/DL (7-18); CHLORIDE 100 MEQ/L (98-107); GLOMERULAR FILTRATION RATE 131 ML/MIN (>89); SODIUM (NA) 135 MEQ/L (136-145)
[2017-05-18 13:40] LABS: POTASSIUM 4.4 MEQ/L (3.5-5.1)
--- NOTE | 2017-05-18 13:49 | RADRPT ---
EXAM DATE/TIME: 05/18/2017 13:30 [facility] COMPARISON: HIP RIGHT (AP&LAT 2/3VWS) WO AP PELVIS, February 14, 2017, 8:01. INDICATIONS : Right hip pain, fall. MEDICAL HISTORY : Arthritis. Hypertension SURGICAL HISTORY : Right total hip replacement. ENCOUNTER: Initial ACUITY: 1 day PAIN SCORE: 8/10 LOCATION: Right proximal hip FINDINGS: Two-view examination of the right hip is performed. Intramedullary gildardo in the proximal femur, distal intercalated screw, and femoral neck nail. The hardware is intact. There is a fracture of the less er trochanter with persistent fracture lucency and no bridging callus. The displacement is similar t o prior exam 02/14/17. Bony acetabulum is intact.. CONCLUSION: Intact hardware proximal femur. No bony fusion across the displaced fracture of the lesser trochante r, similar to prior. Brian Pritchard MD on May 18, 2017 at 13:46 Board Certified Radiologist. This report was verified electronically.
--- NOTE | 2017-05-18 14:03 | RADRPT ---
EXAM DATE/TIME: 05/18/2017 13:33 [facility] COMPARISON: No previous studies available for comparison. INDICATIONS : Right foot, first digit pain. Fall. MEDICAL HISTORY : Arthritis. SURGICAL HISTORY : None. ENCOUNTER: Initial ACUITY: 2 days PAIN SCORE: 7/10 LOCATION: Right foot, great toe. FINDINGS: Diffuse osteopenia. There is avulsion of the nail of the 1st digit. The distal chinmay of the distal phalanx is intact. There is questionable fracture of the medial metaphysis of the distal phalanx.. Moderate degenerative changes in the lateral aspect of the 1st MTP joint. CONCLUSION: 1. Nail avulsion 1st digit. 2. Possible nondisplaced fracture of the medial metaphysis of the distal phalanx 1st digit. Brian Pritchard MD on May 18, 2017 at 13:59 Board Certified Radiologist. This report was verified electronically.
--- NOTE | 2017-05-18 14:05 | RADRPT ---
EXAM DATE/TIME: 05/18/2017 13:41 [facility] COMPARISON: No previous studies available for comparison. INDICATIONS : Left foot pain, fall. MEDICAL HISTORY : None. SURGICAL HISTORY : None. ENCOUNTER: Initial ACUITY: 2 days PAIN SCORE: 4/10 LOCATION: Left foot, dorsal surface. FINDINGS: Three view examination of the left foot demonstrates no soft tissue swelling, dislocation, or fractur e. The tarsal bones appear intact. The interphalangeal and metatarsophalangeal joints are intact. The calcaneus is intact. Bony mineralization is diffusely decreased. CONCLUSION: Osteopenia. No evidence of recent bony injury. Brian Pritchard MD on May 18, 2017 at 14:03 Board Certified Radiologist. This report was verified electronically.
--- NOTE | 2017-05-18 14:21 | RADRPT ---
EXAM DATE/TIME: 05/18/2017 14:02 [facility] COMPARISON: CT BRAIN W/O CONTRAST, July 12, 2016, 16:58. INDICATIONS : Fall, loss of balance. Weakness. RADIATION DOSE: 35.44 CTDIvol (mGy) MEDICAL HISTORY : None SURGICAL HISTORY : None. ENCOUNTER: Initial ACUITY: 1 day PAIN SCALE: 8/10 LOCATION: Right cranial TECHNIQUE: Multiple contiguous axial images were obtained of the head. Using automated exposure control and adj ustment of the mA and/or kV according to patient size, radiation dose was kept as low as reasonably a chievable to obtain optimal diagnostic quality images. DICOM format image data is available electro nically for review and comparison. FINDINGS: CEREBRUM: There is a tiny hyperdensity seen in the junction of the cortex and white matter right mid convexity frontoparietal region, only seen on image #17. This could represent a tiny hemorrhage. The remainde r of the supratentorial brain has a normal appearance the ventricles are normal size. No extra-axial fluid collections. No intraventricular blood. POSTERIOR FOSSA: The cerebellum and brainstem are intact. The 4th ventricle is midline. The cerebellopontine angle i s unremarkable. EXTRACRANIAL: The visualized portion of the orbits is intact. SKULL: The calvaria is intact. No evidence of skull fracture. CONCLUSION: Tiny solitary hypodensity in the right frontoparietal region could represent a small hemorrhage or sh ear injury. Recommend followup CT. Brian Pritchard MD on May 18, 2017 at 14:16 Board Certified Radiologist. This report was verified electronically.
--- NOTE | 2017-05-18 14:32 | RADRPT ---
EXAM DATE/TIME: 05/18/2017 14:02 [facility] COMPARISON: CT CERVICAL SPINE W/O CONTRAST, July 12, 2016, 16:58. INDICATIONS : Fall, loss of balance, weakness. RADIATION DOSE: 18.04 CTDIvol (mGy) MEDICAL HISTORY : None SURGICAL HISTORY : None. ENCOUNTER: Initial ACUITY: 1 day PAIN SCALE: 8/10 LOCATION: Right neck TECHNIQUE: Volumetric scanning of the cervical spine was performed. Multiplanar reconstructions in the sagittal, coronal and oblique axial planes were performed. Using automated exposure control and adjustment o f the mA and/or kV according to patient size, radiation dose was kept as low as reasonably achievable to obtain optimal diagnostic quality images. DICOM format image data is available electronically f or review and comparison. FINDINGS: There is ventral cervical hardware fusion from C4-C7. There is reversal of upper cervical lordosis. N o definite spondylolisthesis. There is no evidence of fracture. There is stable significant cervical canal stenosis at C2-3 with less severe changes elsewhere in the cervical spine. Severe arthritic tera nges are present in the posterior facet joints with multilevel facet fusion. There is no evidence of paraspinal hematoma. CONCLUSION: Stable appearance to the cervical spine when compared to June 2016 but anterior cervical plate, m ultilevel degenerative changes, facet joint fusion, and reversal per cervical lordosis. No acute fin dings. Brian Pritchard MD on May 18, 2017 at 14:27 Board Certified Radiologist. This report was verified electronically.
--- NOTE | 2017-05-18 14:37 | RADRPT ---
EXAM DATE/TIME: 05/18/2017 13:23 [facility] COMPARISON: No previous studies available for comparison. INDICATIONS : Left hip pain, fall. MEDICAL HISTORY : Arthritis. Hypertension SURGICAL HISTORY : Right total hip replacement. ENCOUNTER: Initial ACUITY: 2 days PAIN SCORE: 7/10 LOCATION: Left proximal hip FINDINGS: 4 views of the left hip reveal a linear area of cortical and trabecular irregularity involving the le ft sacrum. This only seen on a single projection. Remaining bony structures are unremarkable. Mild os teoarthritis of the hip joint. Soft tissues are unremarkable. CONCLUSION: Suspected left sacral insufficiency style fracture. Brian Smart Jr., MD on May 18, 2017 at 14:34 Board Certified Radiologist. This report was verified electronically.
[2017-05-18 14:45] VITALS: BP 122/73; PULSE 92; RESP 18; O2SAT 98
[2017-05-18] MEDS ORDERED: CALCIUM CARBONATE 1.25 GM (CA 500 MG) TAB PO ONE (15:00)
--- NOTE | 2017-05-18 15:55 | HHI.HP ---
[facility] Service Family Medicine Primary Care Physician [facility] Admission Diagnosis hemorrhage seen on head CT, multiple falls, great toe fracture Diagnoses: International Travel<30 Days: No Contact w/Intl Traveler<30days: No Known Affected Area: No History of Present Illness Patient is a 66 y/o M w/hx of HTN and right hip fracture presenting with multiple recent falls and weakness. Was admitted to [facility] in January for right intertrochanteric hip fracture after turning in his home and falling. Underwent right hip reduction and intramedullary nail fixation. Today, patient states he was tired of falling down and finally called 911 today. He has fallen 5x in the last 5 days, which he states occurs after he loses of sense of balance. Denies syncope or pre-syncope symptoms. States that he has difficulty with coordination and moving his right side in the last few days and feels like this may be the source of his problem. Has home health nurse come to his home 1x/week but has not told the nurse about what has been happening. Has fallen at least once on his head, which he describes as a "teany tiny tap" and once on his right side. Today he fell while trying to open a window. His falls have not been witnessed by anyone. No one saw him fall. Endorses +lightheadedness and burning in his feet when it gets cold (?). Patient also feels pain in chest with cough. Notices increase in sputum but does not notice change in color of sputum. Denies SOB, diarrhea, melena, hematochezia, dysuria, or changes in urination. (Sarah Beth Kim MD R1) Review of Systems Constitutional: DENIES: Fatigue, Fever Endocrine: DENIES: Polydipsia Eyes: DENIES: Blurred vision, Vision loss, Double Vision Ears, nose, mouth, throat: DENIES: Hoarseness, Epistaxis Cardiovascular: DENIES: Chest pain, Palpitations Gastrointestinal: DENIES: Black stools, Bloody stools Genitourinary: DENIES: Urgency, Dysuria Neurologic: DENIES: Headache (Sarah Beth Kim MD R1) Past Family Social History Past Medical History Anxiety, HTN, Hyperlipidemia, COPD and Tobacco Abuse Hx of broken hip Family History Reviewed. No h/o DM or CAD Past Surgical History Spine Screws Reported Medications Aspirin Low Dose (Aspirin) 81 Mg Chew 81 Mg CHEW DAILY Morphine ER (Morphine Sulfate) 15 Mg Tab 15 Mg PO Q8H Meloxicam 15 Mg Tab 15 Mg PO DAILY Claritin (Loratadine) 10 Mg Cap 10 Mg PO DAILY Flonase Nasal Picher (Fluticasone Nasal Picher) 50 Mcg/Act Picher 2 Puff EACH NARE HS Ventolin Hfa 18 GM Inh (Albuterol Sulfate) 90 Mcg/Act Aer 2 Puff INH Q4H PRN Carbamazepine 200 Mg Tab 400 Mg PO BID Gabapentin 800 Mg Tab 800 Mg PO QID Atorvastatin (Atorvastatin Calcium) 80 Mg Tab 80 Mg PO HS Baclofen 10 Mg Tab 10 Mg PO QID Carbamazepine 200 Mg Tab 200 Mg PO HS (Sarah Beth Kim MD R1) Allergies: Coded Allergies: No Known Allergies (Unverified , 05/18/17) Family History Mom: passed at 78 from supranuclear palsy Dad: not known Children: - one passed from ALS Social History Smokes 1/2 pack per day since age 19 ETOH : hx of alcohol abuse, last drink in 2008 Drugs: no recent use, hx of marijuana use (Sarah Beth Kim MD R1) Physical Exam Vital Signs Vital Signs Date Time Temp Pulse Resp B/P (MAP) Pulse Ox O2 Delivery O2 Flow Rate FiO2 05/18/17 14:45 92 18 122/73 (89) 98 Room Air 05/18/17 12:32 98.6 91 16 127/73 (91) 98 Room Air 05/18/17 11:50 98.0 92 16 118/70 (86) 97 Physical Exam GENERAL: This is a frail appearing elderly male resting quietly in bed. SKIN: Cool and dry. HEAD: Atraumatic. Normocephalic. EYES: Extraocular motions intact. No scleral icterus. No injection or drainage. ENT: Uvula midline. Airway patent. NECK: Trachea midline. CARDIOVASCULAR: Regular rate and rhythm without murmurs, gallops, or rubs. RESPIRATORY: Poor inspiratory effort and airflow GASTROINTESTINAL: Abdomen soft, nondistended. MUSCULOSKELETAL: Extremities without clubbing, cyanosis, or edema. No calf tenderness. NEUROLOGICAL: Awake and alert. Cranial nerves II through XII intact. Motor and sensory grossly within normal limits. 4/5 strength in the right side v left. Normal speech. Laboratory Laboratory Tests Test 05/18/17 12:45 White Blood Count 7.0 Red Blood Count 4.32 Hemoglobin 13.2 Hematocrit 38.8 Mean Corpuscular Volume 89.8 Mean Corpuscular Hemoglobin 30.7 Mean Corpuscular Hemoglobin Concent 34.1 Red Cell Distribution Width 14.1 Platelet Count 265 Mean Platelet Volume 7.5 Neutrophils (%) (Auto) 79.2 Lymphocytes (%) (Auto) 11.7 Monocytes (%) (Auto) 5.2 Eosinophils (%) (Auto) 2.7 Basophils (%) (Auto) 1.2 Neutrophils # (Auto) 5.5 Lymphocytes # (Auto) 0.8 Monocytes # (Auto) 0.4 Eosinophils # (Auto) 0.2 Basophils # (Auto) 0.1 CBC Comment DIFF FINAL Differential Comment Prothrombin Time 10.9 Prothromb Time International Ratio 1.0 Activated Partial Thromboplast Time 33.3 Blood Urea Nitrogen 8 Creatinine 0.62 Random Glucose 86 Total Protein 6.7 Albumin 3.1 Calcium Level 8.3 Alkaline Phosphatase 162 Aspartate Amino Transf (AST/SGOT) 37 Alanine Aminotransferase (ALT/SGPT) 32 Total Bilirubin 0.2 Sodium Level 135 Potassium Level 4.4 Chloride Level 100 Carbon Dioxide Level 29.5 Anion Gap 6 Estimat Glomerular Filtration Rate 131 (Sarah Beth Kim MD R1) Result Diagram: 05/18/17 1245 05/18/17 1245 Imaging Last 48 hours Impressions Toe X-Ray 05/18/171221 Signed Impressions: Service Date/Time: Thursday, May 18, 2017 13:33 - CONCLUSION: 1. Nail avulsion 1st digit. 2. Possible nondisplaced fracture of the medial metaphysis of the distal phalanx 1st digit. Brian Pritchard MD Head CT 05/18/171221 Signed Impressions: Service Date/Time: Thursday, May 18, 2017 14:02 - CONCLUSION: Tiny solitary hypodensity in the right frontoparietal region could represent a small hemorrhage or shear injury. Recommend followup CT. Brian Pritchard MD Foot X-Ray 05/18/171221 Signed Impressions: Service Date/Time: Thursday, May 18, 2017 13:41 - CONCLUSION: Osteopenia. No evidence of recent bony injury. Brian Pritchard MD Cervical Spine CT 05/18/171221 Signed Impressions: Service Date/Time: Thursday, May 18, 2017 14:02 - CONCLUSION: Stable appearance to the cervical spine when compared to June 2016 but anterior cervical plate, multilevel degenerative changes, facet joint fusion, and reversal per cervical lordosis. No acute findings. Brian Pritchard MD Hip and Pelvis X-Ray 05/18/17 0000 Signed Impressions: Service Date/Time: Thursday, May 18, 2017 13:23 - CONCLUSION: Suspected left sacral insufficiency style fracture. Brian Smart Jr., MD Hip X-Ray 05/18/17 0000 Signed Impressions: Service Date/Time: Thursday, May 18, 2017 13:30 - CONCLUSION: Intact hardware proximal femur. No bony fusion across the displaced fracture of the lesser trochanter, similar to prior. Brian Pritchard MD Course In the ED, "Procedure: Toenail removal. LOCATION: Right great toe REPAIR: The area of the laceration was prepped with Betadine and sterilely draped. A digital block was performed with 1% lidocaine. Adequate anesthesia was obtained. Sharp dissection was used to undermine the length of the great toenail. This was removed with slight traction. The wound was washed with copious sterile saline. Dressing was applied. Patient tolerated the procedure well. I spoke with Dr. Paris Almanza, who does not anticipate surgical intervention of the patients non healed lesser trochanter fracture. I spoke with Dr. Nicole regarding the CT head findings, he does not see any areas of concern on the CT. Consult placed to podiatry. I spoke with Dr. Alfaro who requests that I remove the great toenail. Please my procedure note for details. I spoke with the residents and Dr. Vincent who agree to accept the patient to the medicine service. Please see medicine notes for disposition." (Sarah Beth Kim MD R1) Caprini VTE Risk Assessment Caprini VTE Risk Assessment: Mod/High Risk (score >= 2) Caprini Risk Assessment Model Point Value = 1 Point Value = 2 Point Value = 3 Point Value = 5 Age 41-60 Minor surgery BMI > 25 kg/m2 Swollen legs Varicose veins or History of unexplained or recurrent spontaneous Oral contraceptives or hormone replacement Sepsis (< 1 month) Serious lung disease, including pneumonia (< 1 month) Abnormal pulmonary function Acute myocardial infarction Congestive heart failure (< 1 month) History of inflammatory bowel disease Medical patient at bed rest Age 61-74 Arthroscopic surgery Major open surgery (> 45 min) Laparoscopic surgery (> 45 min) Malignancy Confined to bed (> 72 hours) Immobilizing plaster cast Central venous access Age >= 75 History of VTE Family history of VTE Factor V Leiden Prothrombin [id number] Lupus anticoagulant Anticardiolipin antibodies Elevated serum homocysteine Heparin-induced thrombocytopenia Other congenital or acquired thrombophilia Stroke (< 1 month) Elective arthroplasty Hip, pelvis, or leg fracture Acute spinal cord injury (< 1 month) Prophylaxis Regimen Total Risk Factor Score Risk Level Prophylaxis Regimen 0-1 Low Early ambulation 2 Moderate Order ONE of the following: *Sequential Compression Device (SCD) *Heparin 5000 units SQ BID 3-4 Higher Order ONE of the following medications: *Heparin 5000 units SQ TID *Enoxaparin/Lovenox 40 mg SQ daily (WT < 150 kg, CrCl > 30 mL/min) *Enoxaparin/Lovenox 30 mg SQ daily (WT < 150 kg, CrCl > 10-29 mL/min) *Enoxaparin/Lovenox 30 mg SQ BID (WT < 150 kg, CrCl > 30 mL/min) AND/OR *Sequential Compression Device (SCD) 5 or more Highest Order ONE of the following medications: *Heparin 5000 units SQ TID (Preferred with Epidurals) *Enoxaparin/Lovenox 40 mg SQ daily (WT < 150 kg, CrCl > 30 mL/min) *Enoxaparin/Lovenox 30 mg SQ daily (WT < 150 kg, CrCl > 10-29 mL/min) *Enoxaparin/Lovenox 30 mg SQ BID (WT < 150 kg, CrCl > 30 mL/min) AND *Sequential Compression Device (SCD) (Sarah Beth Kim MD R1) Assessment and Plan Assessment and Plan Patient is a 66 y/o M w/hx of right hip fracture presenting with recent multiple falls and great toe fracture seen on XR. Multiple falls likely due to frailty. Plan to start patient with PT this admission. Code Status FULL Discussed Condition With Dr. Abel and Dr. Vincent (Sarah Beth Kim MD R1) Attending Attestation Patient seen and examined. Case reviewed and discussed with the resident team. Agree with plan of care as discussed with me and documented in the resident note. pt seen in ED (Erika Vincent MD) Problem List: (1) Intertrochanteric fracture of right hip ICD Codes: S72.141A - Displaced intertrochanteric fracture of right femur, initial encounter for closed fracture Status: Acute Plan: Hx of fracture in January 2017. Underwent hip reduction and intramedullary nail fixation. Further intervention not necessary at this time. At home, patient takes 15 mg morphine 3 times a day, 10 mg oxycodone 4 times a day - Morphine 15 mg PO Q8H for pain - Plan for PT assessment and treatment (2) Age-related physical debility ICD Codes: R54 - Age-related physical debility Plan: Plan with multiple falls in the past 4-5 days. Recommend physical therapy. Fall precautions. Neuro check q 4 hours. (3) Nail avulsion of toe ICD Codes: S91.209A - Unspecified open wound of unspecified toe(s) with damage to nail, initial encounter Status: Acute Plan: Toenail removed in the ED. -Wound care consulted (4) Intracranial bleeding ICD Codes: I62.9 - Nontraumatic intracranial hemorrhage, unspecified Plan: Neurosurgeon thinks sub acute injury Do not recommend surgical intervention as of now (5) HLD (hyperlipidemia) ICD Codes: E78.5 - Hyperlipidemia, unspecified Status: Chronic Plan: Con't home atorvastatin (6) History of alcoholism ICD Codes: F10.21 - Alcohol dependence, in remission Plan: [facility] protocol (7) Tobacco abuse ICD Codes: Z72.0 - Tobacco use Status: Chronic Plan: Nicotine patch 14 mg daily. Tobacco cessation reviewed. (8) Nutrition, metabolism, and development symptoms ICD Codes: R63.8 - Other symptoms and signs concerning food and fluid intake Status: Acute Plan: Fluids: none Electrolytes: none, as needed Nutrition: Regular Diet GI prophy: not indicated DVT prophy: SCDs, fall risk (AbidSarah Beth MD R1) Physician Certification 2 Midnight Certification Type: Admission for Inpatient Services Order for Inpatient Services The services are ordered in accordance with Medicare regulations or non- Medicare payer requirements, as applicable. In the case of services not specified as inpatient-only, they are appropriately provided as inpatient services in accordance with the 2-midnight benchmark. Estimated LOS (days): 2 2 days is the estimated time the patient will need to remain in the hospital, assuming treatment plan goals are met and no additional complications. Post-Hospital Plan: Not yet determined (Sarah Beth Kim MD R1) Problem Qualifiers (1) Intertrochanteric fracture of right hip: (2) Nail avulsion of toe: Qualified Codes: S91.209A - Unspecified open wound of unspecified toe(s) with damage to nail, initial encounter (3) HLD (hyperlipidemia): Qualified Codes: E78.00 - Pure hypercholesterolemia, unspecified Sarah Beth Kim MD R1 May 18, 2017 15:55 Erika Vincent MD May 19, 2017 12:58
--- NOTE | 2017-05-18 15:55 | RADRPT ---
EXAM DATE/TIME: 05/18/2017 15:09 [facility] COMPARISON: CHEST SINGLE AP, February 14, 2017, 0:31. INDICATIONS : Chest pain, fall. MEDICAL HISTORY : Hypercholesterolemia. Hypertension Chronic obstructive pulmonary disease. SURGICAL HISTORY : None. ENCOUNTER: Initial ACUITY: 1 day PAIN SCORE: 8/10 LOCATION: Bilateral chest FINDINGS: A single view of the chest demonstrates the lungs to be symmetrically aerated without evidence of mas s, infiltrate or effusion. The cardiomediastinal contours are unremarkable. The right thoracic scol iosis. Low cervical plate.. CONCLUSION: The lungs are clear. Brian Pritchard MD on May 18, 2017 at 15:53 Board Certified Radiologist. This report was verified electronically.
[2017-05-18] MEDS ORDERED: LIDOCAINE HCL 1% 50 ML VIAL INFIL ONE (16:30)
[2017-05-18] MEDS ORDERED: BISACODYL 10 MG SUPP RECTAL PRN (17:00)
[2017-05-18] MEDS ORDERED: MAGNESIUM HYDROXIDE SUSP 30 ML CUP PO PRN (17:00)
[2017-05-18] MEDS ORDERED: SENNOSIDES 8.6 MG TAB PO PRN (17:00)
[2017-05-18] MEDS ORDERED: LACTULOSE SYRUP 20 GM/30 ML CUP PO PRN (17:00)
[2017-05-18 17:18] LABS: BLOOD, URINE NEG (NEG); COMMENT (UR) CULT NOT INDICATED; CULTURE IF INDICATED CULT NOT INDICATED; GLUCOSE,URINE NEG (NEG); KETONE, URINE NEG (NEG); MUCUS URINE FEW /lpf (OCC); NITRITE,URINE NEG (NEG); PH, URINE 7.5 (5.0-8.5); SQUAMOUS EPITHELIAL CELL URINE <1 /hpf (0-5); URINE COLOR YELLOW (YELLW/STRAW)
[2017-05-18] MEDS: LORATADINE 10 MG TAB PO SCH (17:45)
[2017-05-18] MEDS: GABAPENTIN 400 MG CAP PO SCH ×2 (18:00→21:14)
[2017-05-18] MEDS ORDERED: LORazepam 1 MG TAB PO PRN (18:15)
[2017-05-18] MEDS ORDERED: LORazepam 2 MG TAB PO PRN (18:15)
[2017-05-18] MEDS ORDERED: FLUMAZENIL 0.5 MG/5 ML VIAL IV PUSH PRN (18:15)
[2017-05-18] MEDS ORDERED: LORazepam 2 MG/ML VIAL IV PUSH PRN ×4 (18:15)
[2017-05-18 18:32] VITALS: BP 147/81; PULSE 95; RESP 18; O2SAT 98
[2017-05-18 20:45] VITALS: BP 154/79; PULSE 97; RESP 20; TEMP 97.6; O2SAT 98
[2017-05-18] MEDS: SODIUM CHLORIDE 0.9% FLUSH 10 ML FLUSH IV FLUSH SCH (21:00)
[2017-05-18] MEDS: carBAMazepine 200 MG TAB PO SCH ×2 (21:00→21:14)
[2017-05-18] MEDS: ATORVASTATIN 80 MG TAB PO SCH (21:13)
[2017-05-18] MEDS: DOCUSATE SODIUM 50 MG/SENNA 8.6 MG TAB PO SCH (21:14)
[2017-05-18] MEDS: MORPHINE SULFATE 15 MG TAB PO SCH (21:14)
[2017-05-18] MEDS: ACETAMINOPHEN/HYDROcodone 325 MG/7.5 MG TAB PO SCH (21:14)
[2017-05-18] MEDS: BACLOFEN 10 MG TAB PO SCH (21:14)
[2017-05-18] MEDS: CALCIUM/VITAMIN D 250 MG/125 U TAB PO SCH (21:14)
[2017-05-19] VITALS (9 sets, daily range): BP systolic 91–156; BP diastolic 60–76; PULSE 72–94; RESP 16–20; TEMP 97.8–99.1; O2SAT 91–96
[2017-05-19] MEDS: ACETAMINOPHEN/HYDROcodone 325 MG/7.5 MG TAB PO SCH ×6 (00:47→20:55)
[2017-05-19 05:08] LABS: AUTOMATED NEUTROPHIL # 2.6 TH/MM3 (1.8-7.7); BASOPHIL # 0.1 TH/MM3 (0-0.2); EOSINOPHIL # 0.3 TH/MM3 (0-0.4); EOSINOPHIL % 6.6 % (0.0-4.0); HEMATOCRIT 36.5 % (39.0-51.0); HEMO FLAGS DIFF FINAL; LYMPH % 28.5 % (9.0-44.0); LYMPHOCYTE # 1.4 TH/MM3 (1.0-4.8); MEAN CELL VOLUME 89.2 FL (80.0-100.0); MEAN CORPUSCULAR HEMOGLOBIN 30.1 PG (27.0-34.0); MEAN CORPUSCULAR HGB CONC 33.7 % (32.0-36.0); MONO % 8.7 % (0.0-8.0); NEUT % 54.2 % (16.0-70.0); PLATELET COUNT 258 TH/MM3 (150-450); RED BLOOD COUNT 4.09 MIL/MM3 (4.50-5.90); RED CELL DISTRIBUTION WIDTH 13.4 % (11.6-17.2); WHITE BLOOD COUNT 4.8 TH/MM3 (4.0-11.0)
[2017-05-19 05:45] LABS: ALKALINE PHOSPHATASE 138 U/L (45-117); ALT (GPT) 23 U/L (12-78); ANION GAP 7 MEQ/L (5-15); AST (GOT) 23 U/L (15-37); BICARBONATE 28.5 MEQ/L (21.0-32.0); BLOOD UREA NITROGEN 6 MG/DL (7-18); CHLORIDE 102 MEQ/L (98-107); GLOMERULAR FILTRATION RATE 141 ML/MIN (>89); POTASSIUM 3.8 MEQ/L (3.5-5.1); SODIUM (NA) 137 MEQ/L (136-145); TOTAL BILIRUBIN ADULT 0.2 MG/DL (0.2-1.0)
[2017-05-19] MEDS: MORPHINE SULFATE 15 MG TAB PO SCH ×3 (06:36→21:27)
[2017-05-19] MEDS: BACLOFEN 10 MG TAB PO SCH ×3 (06:36→21:27)
[2017-05-19] MEDS: SODIUM CHLORIDE 0.9% FLUSH 10 ML FLUSH IV FLUSH SCH ×2 (08:41→20:57)
[2017-05-19] MEDS: CALCIUM/VITAMIN D 250 MG/125 U TAB PO SCH ×2 (08:41→20:56)
[2017-05-19] MEDS: GABAPENTIN 400 MG CAP PO SCH ×4 (08:41→20:54)
[2017-05-19] MEDS: DOCUSATE SODIUM 50 MG/SENNA 8.6 MG TAB PO SCH ×2 (08:41→20:54)
[2017-05-19] MEDS: LORATADINE 10 MG TAB PO SCH (08:42)
[2017-05-19] MEDS: carBAMazepine 200 MG TAB PO SCH ×3 (08:43→21:27)
--- NOTE | 2017-05-19 09:54 | PD.POD.CON ---
Patient Intake Chief Complaint Fracture of right hallux Consult Requested by ED physician Reason for Consult Evaluation and treatment of right hallux fracture Primary Care Physician Physici [facility] History of Present Illness Patient is a 66-year-old frail gentleman who presented after multiple falls at home. He states he pulls himself up and hit his right great toe. Patient was seen in the ED was noted that the patient had a partial nail avulsion of the right hallux nail and radiograph showed a fracture of the distal phalanx. HASTINGS the ED visit total nail avulsion under local anesthetic. I was asked to see the patient concerning toe fracture. Coded Allergies: No Known Allergies (Unverified , 05/18/17) Preferred Language to Discuss: Syrian Barriers to Learning: None Teaching Method: Discussion Vital Signs Date Time Temp Pulse Resp B/P (MAP) Pulse Ox O2 Delivery O2 Flow Rate FiO2 05/19/17 08:00 97.8 94 18 121/75 (90) 91 05/19/17 04:20 99.0 72 17 156/68 (97) 96 05/19/17 00:00 97.8 93 18 122/63 (82) 95 05/18/17 20:45 97.6 97 20 154/79 (104) 98 05/18/17 18:38 05/18/17 18:32 95 18 147/81 (103) 98 Room Air 05/18/17 14:45 92 18 122/73 (89) 98 Room Air 05/18/17 12:32 98.6 91 16 127/73 (91) 98 Room Air 05/18/17 11:50 98.0 92 16 118/70 (86) 97 Pain scale used: 0-10 numeric scale Pain score: 1 Medications Current Medications Sodium Chloride (NS Flush) 2 ml UNSCH PRN IV FLUSH FLUSH AFTER USING IV ACCESS ; Start 05/18/17 at 12:30; Stop 05/18/17 at 18:19; Status DC Sodium Chloride 1,000 ml @ 999 mls/hr BOLUS ONCE IV Last administered on t 12:47; Start 05/18/17 at 12:30; Stop 05/18/17 at 13:30; Status DC Calcium Carbonate (Oscal) 1,000 mg ONCE ONCE PO ; Start 05/18/17 at 15:00; Stop 05/18/17 at 15:01; Status DC Lidocaine HCl (Xylocaine 1% Inj (50 ml)) 50 ml ONCE ONCE INFIL Last administered on 05/18/17 16:30; Start 05/18/17 at 16:30; Stop 05/18/17 at 16 :31; Status DC Senna/Docusate Sodium (Lisa-Colace) 1 tab BID PO Last administered on 08:41; Start 05/18/17 at 21:00 Magnesium Hydroxide (Milk Of Magnesia Liq) 30 ml Q12H PRN PO Mild constipation ; Start 05/18/17 at 17:00 Sennosides (Senokot) 17.2 mg Q12H PRN PO Moderate constipation; Start at 17:00 Bisacodyl (Dulcolax Supp) 10 mg DAILY PRN RECTAL SEVERE CONSITIPATION; Start 05/18/17 at 17:00 Lactulose (Lactulose Liq) 30 ml DAILY PRN PO SEVERE CONSITIPATION; Start 05/18 at 17:00 Atorvastatin Calcium (Lipitor) 80 mg HS PO Last administered on 05/18/17 21: 13; Start 05/18/17 at 21:00 Carbamazepine (TEGretol) 200 mg HS PO Last administered on 05/18/17 21:14; Start 05/18/17 at 21:00 Carbamazepine (TEGretol) 400 mg BID PO Last administered on 05/19/17 08:43; Start 05/18/17 at 21:00 Gabapentin (Neurontin) 800 mg QID PO Last administered on 05/19/17 08:41; Start 05/18/17 at 18:00 Loratadine (Claritin) 10 mg DAILY PO Last administered on 05/19/17 08:42; Start 05/18/17 at 17:45 Calcium/Vitamin D (Oscal-D 250-125) 500 mg BID PO Last administered on 08:41; Start 05/18/17 at 21:00 Acetaminophen/ Hydrocodone Bitart ([place] 7.5-325 Mg) 1 tab Q4HR PO Last administered on 05/19/17 08:40; Start 05/18/17 at 20:00 Morphine Sulfate (Msir) 15 mg Q8HR PO Last administered on 05/19/17 06:36; Start 05/18/17 at 22:00 Sodium Chloride (NS Flush) 2 ml UNSCH PRN IV FLUSH FLUSH AFTER USING IV ACCESS ; Start 05/18/17 at 18:15 Sodium Chloride (NS Flush) 2 ml BID IV FLUSH Last administered on 05/19/17 08 :41; Start 05/18/17 at 21:00 Flumazenil (Romazicon Inj) 0.2 mg Q1M PRN IV PUSH SEE LABEL COMMENTS; Start at 18:15 Lorazepam (Ativan) 1 mg Q4H PRN PO CIWA 8 - 10; Start 05/18/17 at 18:15 Lorazepam (Ativan Inj) 1 mg Q4H PRN IV PUSH CIWA 8 - 10; Start 05/18/17 at 18: 15 Lorazepam (Ativan) 2 mg Q2H PRN PO CIWA 11-14; Start 05/18/17 at 18:15 Lorazepam (Ativan Inj) 2 mg Q2H PRN IV PUSH CIWA 11-14; Start 05/18/17 at 18: 15 Lorazepam (Ativan Inj) 2 mg Q1H PRN IV PUSH CIWA 15-20; Start 05/18/17 at 18: 15 Lorazepam (Ativan Inj) 2 mg Q15M PRN IV PUSH CIWA > 20; Start 05/18/17 at 18: 15 Baclofen (Lioresal) 10 mg Q8HR PO Last administered on 05/19/17 06:36; Start 05/18/17 at 22:00 Past, Family & Social History Past Medical History PFSH Reviewed: Yes Respiratory: REPORTS HX OF: COPD Cardiovascular: REPORTS HX OF: Hyperlipidemia, Hypertension Musculoskeletal: REPORTS HX OF: Fractures Past Surgical History Musculoskeletal: REPORTS HX OF: Other musculoskeletal srg (pinning of his right hip) Review of Systems Constitutional: COMPLAINS OF: Fatigue Cardiovascular: COMPLAINS OF: Hx hypertension Respiratory: COMPLAINS OF: Difficulty breathing Musculoskeletal: COMPLAINS OF: Joint pain/swell/dysarthr Neurological: COMPLAINS OF: Difficulty with balance Exam-Podiatry Constitutional General appearance: comfortable Nutritional status: normal Orientation: alert and oriented x3 Dermatological Exam Skin Temp - Right: Within Normal Limits Skin Texture - Right: Within Normal Limits Skin Elasticity - Right: Within Normal Limits Skin Tugor - Right: Within Normal Limits Hair Growth - Right: Within Normal Limits Pigmentation - Right: Within Normal Limits Skin Temp - Left: Within Normal Limits Skin Texture - Left: Within Normal Limits Skin Elasticity - Left: Within Normal Limits Skin Tugor - Left: Within Normal Limits Hair Growth - Left: Within Normal Limits Pigmentation - Left: Within Normal Limits Other: Scars, Surgery,Injury Nail avulsion site of the right hallux shows clean nail bed without laceration. Vascular/Lymphatic Exam R Dorsails Pedis: Palpable L Dorsails Pedis: Palpable R Posterior Tibial: Palpable L Posterior Tibial: Palpable Neurologic Exam Details No neurological deficits Muscle Strength Dorsiflexion (Right): Normal Plantarflexion (Right): Normal Inversion (Right): Normal Eversion (Right): Normal Digital (Right): Normal Dorsiflexion (Left): Normal Plantarflexion (Left): Normal Inversion (Left): Normal Eversion (Left): Normal Digital (Left): Normal Foot Range of Motion Dorsiflexion (Right): Normal Plantarflexion (Right): Normal Inversion (Right): Normal Eversion (Right): Normal Digital (Right): Normal Dorsiflexion (Left): Normal Plantarflexion (Left): Normal Inversion (Left): Normal Eversion (Left): Normal Digital (Left): Normal Lab and Radiology Results Laboratory Laboratory Tests Test 05/18/17 12:45 05/19/17 04:50 White Blood Count 7.0 TH/MM3 4.8 TH/MM3 Red Blood Count 4.32 MIL/MM3 4.09 MIL/MM3 Hemoglobin 13.2 GM/DL 12.3 GM/DL Hematocrit 38.8 % 36.5 % Mean Corpuscular Volume 89.8 FL 89.2 FL Mean Corpuscular Hemoglobin 30.7 PG 30.1 PG Mean Corpuscular Hemoglobin Concent 34.1 % 33.7 % Red Cell Distribution Width 14.1 % 13.4 % Platelet Count 265 TH/MM3 258 TH/MM3 Mean Platelet Volume 7.5 FL 7.5 FL Neutrophils (%) (Auto) 79.2 % 54.2 % Lymphocytes (%) (Auto) 11.7 % 28.5 % Monocytes (%) (Auto) 5.2 % 8.7 % Eosinophils (%) (Auto) 2.7 % 6.6 % Basophils (%) (Auto) 1.2 % 2.0 % Neutrophils # (Auto) 5.5 TH/MM3 2.6 TH/MM3 Lymphocytes # (Auto) 0.8 TH/MM3 1.4 TH/MM3 Monocytes # (Auto) 0.4 TH/MM3 0.4 TH/MM3 Eosinophils # (Auto) 0.2 TH/MM3 0.3 TH/MM3 Basophils # (Auto) 0.1 TH/MM3 0.1 TH/MM3 CBC Comment DIFF FINAL DIFF FINAL Differential Comment Laboratory Tests Test 05/18/17 12:45 05/18/17 22:04 05/19/17 04:50 Blood Urea Nitrogen 8 MG/DL 6 MG/DL Creatinine 0.62 MG/DL 0.58 MG/DL Random Glucose 86 MG/DL 102 MG/DL Total Protein 6.7 GM/DL 5.3 GM/DL Albumin 3.1 GM/DL 2.4 GM/DL Calcium Level 8.3 MG/DL 7.9 MG/DL Alkaline Phosphatase 162 U/L 138 U/L Aspartate Amino Transf (AST/SGOT) 37 U/L 23 U/L Alanine Aminotransferase (ALT/SGPT) 32 U/L 23 U/L Total Bilirubin 0.2 MG/DL 0.2 MG/DL Sodium Level 135 MEQ/L 137 MEQ/L Potassium Level 4.4 MEQ/L 3.8 MEQ/L Chloride Level 100 MEQ/L 102 MEQ/L Carbon Dioxide Level 29.5 MEQ/L 28.5 MEQ/L Anion Gap 6 MEQ/L 7 MEQ/L Estimat Glomerular Filtration Rate 131 ML/MIN 141 ML/MIN Troponin I LESS THAN 0.02 NG/ML LESS THAN 0.02 NG/ML Vitamin B12 Level 671 PG/ML Folate 17.7 NG/ML Thyroid Stimulating Hormone 3rd Gen 2.370 uIU/ML Radiology Last Impressions Toe X-Ray 05/18/17 1222 Signed Impressions: Service Date/Time: Thursday, May 18, 2017 13:33 - CONCLUSION: 1. Nail avulsion 1st digit. 2. Possible nondisplaced fracture of the medial metaphysis of the distal phalanx 1st digit. Brian Pritchard MD Head CT 05/18/17 1222 Signed Impressions: Service Date/Time: Thursday, May 18, 2017 14:02 - CONCLUSION: Tiny solitary hypodensity in the right frontoparietal region could represent a small hemorrhage or shear injury. Recommend followup CT. Brian Pritchard MD Foot X-Ray 05/18/17 1222 Signed Impressions: Service Date/Time: Thursday, May 18, 2017 13:41 - CONCLUSION: Osteopenia. No evidence of recent bony injury. Brian Pritchard MD Cervical Spine CT 05/18/17 1222 Signed Impressions: Service Date/Time: Thursday, May 18, 2017 14:02 - CONCLUSION: Stable appearance to the cervical spine when compared to June 2016 but anterior cervical plate, multilevel degenerative changes, facet joint fusion, and reversal per cervical lordosis. No acute findings. Brian Pritchard MD Hip and Pelvis X-Ray 05/18/17 0000 Signed Impressions: Service Date/Time: Thursday, May 18, 2017 13:23 - CONCLUSION: Suspected left sacral insufficiency style fracture. Brian Smart Jr., MD Hip X-Ray 05/18/17 0000 Signed Impressions: Service Date/Time: Thursday, May 18, 2017 13:30 - CONCLUSION: Intact hardware proximal femur. No bony fusion across the displaced fracture of the lesser trochanter, similar to prior. Brian Pritchard MD Chest X-Ray 05/18/17 0000 Signed Impressions: Service Date/Time: Thursday, May 18, 2017 15:09 - CONCLUSION: The lungs are clear. Brian Pritchard MD Assessment/Plan Problem List: (1) Fractured great toe Status: Acute (2) Tobacco abuse Status: Chronic (3) HTN (hypertension) Status: Chronic (4) Nail avulsion of toe Status: Acute Additional information PLAN Pending to cover the nail avulsion site. Postop shoe to be worn at all times for the fracture. Counseled the patient quit smoking. Discussed nicotine's effects on bone healing. [facility] Okay to discharge from podiatry standpoint when cleared by medicine. Problem Qualifiers (1) Fractured great toe: Qualified Codes: S92.424A - Nondisplaced fracture of distal phalanx of right great toe, initial encounter for closed fracture (2) HTN (hypertension): Qualified Codes: I10 - Essential (primary) hypertension (3) Nail avulsion of toe: Qualified Codes: S91.209A - Unspecified open wound of unspecified toe(s) with damage to nail, initial encounter Adam Alfaro DPM May 19, 2017 09:54
--- NOTE | 2017-05-19 12:15 | HHI.HP ---
[facility] Service Family Medicine Primary Care Physician [facility] Admission Diagnosis hemorrhage seen on head CT, multiple falls, great toe fracture Diagnoses: (1) Intertrochanteric fracture of right hip Diagnosis: Principal (2) Age-related physical debility Diagnosis: Principal (3) Nail avulsion of toe Diagnosis: Principal (4) Intracranial bleeding Diagnosis: Principal (5) HLD (hyperlipidemia) Diagnosis: Principal (6) History of alcoholism Diagnosis: Principal (7) Tobacco abuse Diagnosis: Principal (8) Nutrition, metabolism, and development symptoms Diagnosis: Principal International Travel<30 Days: No Contact w/Intl Traveler<30days: No Known Affected Area: No History of Present Illness Mr Guevara is a 66 y/o M w/hx of HTN and right hip fracture presenting with multiple recent falls and weakness. Was admitted to [facility] in January for right intertrochanteric hip fracture after turning in his home and falling. Underwent right hip reduction and intramedullary nail fixation. He went to a SNF for 21 days and just recently went home where he had multiple falls. Today, patient states he was tired of falling down and finally called 911 today. He has fallen 5x in the last 5 days, which he states occurs after he loses of sense of balance. Denies syncope or pre-syncope symptoms. States that he has difficulty with coordination and moving his right side in the last few days and feels like this may be the source of his problem. Has home health nurse come to his home 1x/week but has not told the nurse about what has been happening. Has fallen at least once on his head, which he describes as a "teeny tiny tap" and once on his right side. Today he fell while trying to open a window. His falls have not been witnessed by anyone. No one saw him fall. Endorses +lightheadedness and burning in his feet when it gets cold (?). Patient also feels pain in chest with cough. Notices increase in sputum but does not notice change in color of sputum. Denies SOB, diarrhea, melena, hematochezia, dysuria, or changes in urination. Discussed with him that he seems to be a huge fall risk and asked if he would consider going to a rehab facility for awhile. His preference is to go back home but he is willing to consider this. Fortunately, after review of Neurosurgery per ED, he does not have a bleed in his brain. Review of Systems Other Constitutional: DENIES: Fatigue, Fever Endocrine: DENIES: Polydipsia Eyes: DENIES: Blurred vision, Vision loss, Double Vision Ears, nose, mouth, throat: DENIES: Hoarseness, Epistaxis Cardiovascular: DENIES: Chest pain, Palpitations Gastrointestinal: DENIES: Black stools, Bloody stools Genitourinary: DENIES: Urgency, Dysuria Neurologic: DENIES: Headache Past Family Social History Past Medical History Anxiety, HTN, Hyperlipidemia, COPD and Tobacco Abuse Hx of broken hip Family History Reviewed. No h/o DM or CAD Past Surgical History Spine Screws Allergies: Coded Allergies: No Known Allergies (Unverified , 05/18/17) Family History Mom: passed at 78 from supranuclear palsy Dad: not known Children: - one passed from ALS Social History Smokes 1/2 pack per day since age 19 ETOH : hx of alcohol abuse, last drink in 2008 Drugs: no recent use, hx of marijuana use Physical Exam Vital Signs Vital Signs Date Time Temp Pulse Resp B/P (MAP) Pulse Ox O2 Delivery O2 Flow Rate FiO2 05/19/17 08:04 88 05/19/17 08:00 97.8 94 18 121/75 (90) 91 05/19/17 04:20 99.0 72 17 156/68 (97) 96 05/19/17 00:00 97.8 93 18 122/63 (82) 95 05/18/17 20:45 97.6 97 20 154/79 (104) 98 05/18/17 18:38 05/18/17 18:32 95 18 147/81 (103) 98 Room Air 05/18/17 14:45 92 18 122/73 (89) 98 Room Air 05/18/17 12:32 98.6 91 16 127/73 (91) 98 Room Air Physical Exam GENERAL: This is a frail appearing elderly male sitting in a chair. appears to have some weight loss with prominent bones including scapula SKIN: Cool and dry. HEAD: Atraumatic. Normocephalic. EYES: Extraocular motions intact. No scleral icterus. No injection or drainage. ENT: Uvula midline. Airway patent. NECK: Trachea midline. CARDIOVASCULAR: Regular rate and rhythm without murmurs, gallops, or rubs. No bruises seen where he points to area of pain lower rib cage bilaterally but tender to palpation RESPIRATORY: Poor inspiratory effort and airflow GASTROINTESTINAL: Abdomen soft, nondistended. MUSCULOSKELETAL: Extremities without clubbing, cyanosis, or edema. No calf tenderness. NEUROLOGICAL: Awake and alert. Cranial nerves II through XII intact. Motor and sensory grossly within normal limits. 4/5 strength in the right side v left. Normal speech. Laboratory Laboratory Tests Test 05/18/17 12:45 05/18/17 16:47 05/18/17 22:04 05/19/17 04:50 White Blood Count 7.0 4.8 Red Blood Count 4.32 4.09 Hemoglobin 13.2 12.3 Hematocrit 38.8 36.5 Mean Corpuscular Volume 89.8 89.2 Mean Corpuscular Hemoglobin 30.7 30.1 Mean Corpuscular Hemoglobin Concent 34.1 33.7 Red Cell Distribution Width 14.1 13.4 Platelet Count 265 258 Mean Platelet Volume 7.5 7.5 Neutrophils (%) (Auto) 79.2 54.2 Lymphocytes (%) (Auto) 11.7 28.5 Monocytes (%) (Auto) 5.2 8.7 Eosinophils (%) (Auto) 2.7 6.6 Basophils (%) (Auto) 1.2 2.0 Neutrophils # (Auto) 5.5 2.6 Lymphocytes # (Auto) 0.8 1.4 Monocytes # (Auto) 0.4 0.4 Eosinophils # (Auto) 0.2 0.3 Basophils # (Auto) 0.1 0.1 CBC Comment DIFF FINAL DIFF FINAL Differential Comment Prothrombin Time 10.9 Prothromb Time International Ratio 1.0 Activated Partial Thromboplast Time 33.3 Blood Urea Nitrogen 8 6 Creatinine 0.62 0.58 Random Glucose 86 102 Total Protein 6.7 5.3 Albumin 3.1 2.4 Calcium Level 8.3 7.9 Alkaline Phosphatase 162 138 Aspartate Amino Transf (AST/SGOT) 37 23 Alanine Aminotransferase (ALT/SGPT) 32 23 Total Bilirubin 0.2 0.2 Sodium Level 135 137 Potassium Level 4.4 3.8 Chloride Level 100 102 Carbon Dioxide Level 29.5 28.5 Anion Gap 6 7 Estimat Glomerular Filtration Rate 131 141 Urine Color YELLOW Urine Turbidity HAZY Urine pH 7.5 Urine Specific Ralls 1.014 Urine Protein NEG Urine Glucose (UA) NEG Urine Ketones NEG Urine Occult Blood NEG Urine Nitrite NEG Urine Bilirubin NEG Urine Urobilinogen LESS THAN 2.0 Urine Leukocyte Esterase NEG Urine WBC 2 Urine Squamous Epithelial Cells <1 Urine Amorphous Sediment RARE Urine Mucus FEW Microscopic Urinalysis Comment CULT NOT INDICATED Troponin I LESS THAN 0.02 LESS THAN 0.02 Vitamin B12 Level 671 Folate 17.7 Thyroid Stimulating Hormone 3rd Gen 2.370 Carbamazepine (Tegretol) Level 7.7 Result Diagram: 05/19/1744905/19/170 Imaging Last 48 hours Impressions Toe X-Ray 05/18/172 Signed Impressions: Service Date/Time: Thursday, May 18, 2017 13:33 - CONCLUSION: 1. Nail avulsion 1st digit. 2. Possible nondisplaced fracture of the medial metaphysis of the distal phalanx 1st digit. Brian Pritchard MD Head CT 05/18/172 Signed Impressions: Service Date/Time: Thursday, May 18, 2017 14:02 - CONCLUSION: Tiny solitary hypodensity in the right frontoparietal region could represent a small hemorrhage or shear injury. Recommend followup CT. Brian Pritchard MD Foot X-Ray 05/18/171221 Signed Impressions: Service Date/Time: Thursday, May 18, 2017 13:41 - CONCLUSION: Osteopenia. No evidence of recent bony injury. Brian Pritchard MD Cervical Spine CT 05/18/172 Signed Impressions: Service Date/Time: Thursday, May 18, 2017 14:02 - CONCLUSION: Stable appearance to the cervical spine when compared to June 2016 but anterior cervical plate, multilevel degenerative changes, facet joint fusion, and reversal per cervical lordosis. No acute findings. Brian Pritchard MD Hip and Pelvis X-Ray 05/18/17 0000 Signed Impressions: Service Date/Time: Thursday, May 18, 2017 13:23 - CONCLUSION: Suspected left sacral insufficiency style fracture. Brian Smart Jr., MD Hip X-Ray 05/18/17 0000 Signed Impressions: Service Date/Time: Thursday, May 18, 2017 13:30 - CONCLUSION: Intact hardware proximal femur. No bony fusion across the displaced fracture of the lesser trochanter, similar to prior. Brian Pritchard MD Caprindilshad VTE Risk Assessment Caprini VTE Risk Assessment: Mod/High Risk (score >= 2) Caprini Risk Assessment Model Point Value = 1 Point Value = 2 Point Value = 3 Point Value = 5 Age 41-60 Minor surgery BMI > 25 kg/m2 Swollen legs Varicose veins or History of unexplained or recurrent spontaneous Oral contraceptives or hormone replacement Sepsis (< 1 month) Serious lung disease, including pneumonia (< 1 month) Abnormal pulmonary function Acute myocardial infarction Congestive heart failure (< 1 month) History of inflammatory bowel disease Medical patient at bed rest Age 61-74 Arthroscopic surgery Major open surgery (> 45 min) Laparoscopic surgery (> 45 min) Malignancy Confined to bed (> 72 hours) Immobilizing plaster cast Central venous access Age >= 75 History of VTE Family history of VTE Factor V Leiden Prothrombin [id number] Lupus anticoagulant Anticardiolipin antibodies Elevated serum homocysteine Heparin-induced thrombocytopenia Other congenital or acquired thrombophilia Stroke (< 1 month) Elective arthroplasty Hip, pelvis, or leg fracture Acute spinal cord injury (< 1 month) Prophylaxis Regimen Total Risk Factor Score Risk Level Prophylaxis Regimen 0-1 Low Early ambulation 2 Moderate Order ONE of the following: *Sequential Compression Device (SCD) *Heparin 5000 units SQ BID 3-4 Higher Order ONE of the following medications: *Heparin 5000 units SQ TID *Enoxaparin/Lovenox 40 mg SQ daily (WT < 150 kg, CrCl > 30 mL/min) *Enoxaparin/Lovenox 30 mg SQ daily (WT < 150 kg, CrCl > 10-29 mL/min) *Enoxaparin/Lovenox 30 mg SQ BID (WT < 150 kg, CrCl > 30 mL/min) AND/OR *Sequential Compression Device (SCD) 5 or more Highest Order ONE of the following medications: *Heparin 5000 units SQ TID (Preferred with Epidurals) *Enoxaparin/Lovenox 40 mg SQ daily (WT < 150 kg, CrCl > 30 mL/min) *Enoxaparin/Lovenox 30 mg SQ daily (WT < 150 kg, CrCl > 10-29 mL/min) *Enoxaparin/Lovenox 30 mg SQ BID (WT < 150 kg, CrCl > 30 mL/min) AND *Sequential Compression Device (SCD) Assessment and Plan Assessment and Plan Patient is a 66 y/o M w/hx of right hip fracture presenting with recent multiple falls and great toe fracture seen on XR. Multiple falls likely due to frailty. Plan to start patient with PT this admission. fracture of toe plus hip will continue to discuss with him going for more rehab plus will consider decreasing sedating meds. appreciate eval of PT here and OT as his arms are very weak Problem List: (1) Intertrochanteric fracture of right hip ICD Codes: S72.141A - Displaced intertrochanteric fracture of right femur, initial encounter for closed fracture Status: Acute Plan: Hx of fracture in January 2017. Underwent hip reduction and intramedullary nail fixation. Further intervention not necessary at this time. At home, patient takes 15 mg morphine 3 times a day, 10 mg oxycodone 4 times a day - Morphine 15 mg PO Q8H for pain - Plan for PT assessment and treatment - unsure if pain meds are contributing to falls (2) Age-related physical debility ICD Codes: R54 - Age-related physical debility Plan: Plan with multiple falls in the past 4-5 days. Recommend physical therapy. Fall precautions. Neuro check q 4 hours. (3) Nail avulsion of toe ICD Codes: S91.209A - Unspecified open wound of unspecified toe(s) with damage to nail, initial encounter Status: Acute Plan: Toenail removed in the ED. -Wound care consulted (4) Intracranial bleeding ICD Codes: I62.9 - Nontraumatic intracranial hemorrhage, unspecified Plan: Neurosurgeon thinks sub acute injury Do not recommend surgical intervention as of now (5) HLD (hyperlipidemia) ICD Codes: E78.5 - Hyperlipidemia, unspecified Status: Chronic Plan: Con't home atorvastatin (6) History of alcoholism ICD Codes: F10.21 - Alcohol dependence, in remission Plan: CIWA protocol (7) Tobacco abuse ICD Codes: Z72.0 - Tobacco use Status: Chronic Plan: Nicotine patch 14 mg daily. Tobacco cessation reviewed. (8) Nutrition, metabolism, and development symptoms ICD Codes: R63.8 - Other symptoms and signs concerning food and fluid intake Status: Acute Plan: Fluids: none Electrolytes: none, as needed Nutrition: Regular Diet, consider ensure GI prophy: not indicated DVT prophy: SCDs, fall risk Problem Qualifiers (1) Intertrochanteric fracture of right hip: (2) Nail avulsion of toe: Qualified Codes: S91.209A - Unspecified open wound of unspecified toe(s) with damage to nail, initial encounter (3) HLD (hyperlipidemia): Qualified Codes: E78.00 - Pure hypercholesterolemia, unspecified Erika Vincent MD May 19, 2017 12:15
--- NOTE | 2017-05-19 15:33 | RADRPT ---
EXAM DATE/TIME: 05/19/2017 15:09 [place] COMPARISON: No previous studies available for comparison. INDICATIONS : Chest pain. MEDICAL HISTORY : Hypercholesterolemia. Hypertension Chronic obstructive pulmonary disease. SURGICAL HISTORY : None. ENCOUNTER: Initial ACUITY: 1 day PAIN SCORE: 5/10 LOCATION: Right lower chest FINDINGS: Multiple views of both ribs were performed. There is no evidence of displaced fracture. No destruct mateo lesions or areas of periosteal thickening are seen. There is a mild to moderate scoliosis of the thoracic and lumbar spine with degenerative change. Postsurgical changes are noted status post fusion in the lumbar spine. The patient is also noted to be status post cervical fusion. CONCLUSION: 1. The ribs are intact with no evidence of fracture or underlying bony abnormality. 2. A moderate scoliosis with degenerative change and postoperative changes. Adria Milan MD on May 19, 2017 at 15:29 Board Certified Radiologist. This report was verified electronically.
[2017-05-19] MEDS: ATORVASTATIN 80 MG TAB PO SCH (20:55)
[2017-05-20] VITALS (11 sets, daily range): BP systolic 101–134; BP diastolic 61–76; PULSE 74–91; RESP 16–18; TEMP 97.5–98.1; O2SAT 95–98
[2017-05-20] MEDS: ACETAMINOPHEN/HYDROcodone 325 MG/7.5 MG TAB PO SCH ×6 (00:44→20:49)
[2017-05-20] MEDS: MORPHINE SULFATE 15 MG TAB PO SCH ×3 (06:40→21:49)
[2017-05-20] MEDS: BACLOFEN 10 MG TAB PO SCH ×3 (06:40→21:49)
[2017-05-20] MEDS: CALCIUM/VITAMIN D 250 MG/125 U TAB PO SCH ×2 (09:13→20:50)
[2017-05-20] MEDS: GABAPENTIN 400 MG CAP PO SCH ×4 (09:13→20:48)
[2017-05-20] MEDS: DOCUSATE SODIUM 50 MG/SENNA 8.6 MG TAB PO SCH ×2 (09:13→20:50)
[2017-05-20] MEDS: LORATADINE 10 MG TAB PO SCH (09:14)
[2017-05-20] MEDS: carBAMazepine 200 MG TAB PO SCH ×3 (09:15→20:50)
[2017-05-20] MEDS: SODIUM CHLORIDE 0.9% FLUSH 10 ML FLUSH IV FLUSH SCH ×2 (09:16→20:50)
--- NOTE | 2017-05-20 13:39 | HHI.FPPN ---
Subjective Remarks Discussed with him that he has had so many falls and fractures that he is super high risk to hit his head or break more bones. He lives by himself and blames his "flip flops" as the reason for his 5 prior falls. Per PT, he has a limited gait where he takes very short steps and leans forward as he is "afraid of falling backwards". We discussed him going for rehab to gain strength and prevent falls. he does want to go home but is willing to consider rehab if things work out financially. "I'm on welfare." Objective Vitals Vital Signs Date Time Temp Pulse Resp B/P (MAP) Pulse Ox O2 Delivery O2 Flow Rate FiO2 05/20/17 13:19 97 05/20/17 12:00 97.7 84 18 119/62 (81) 97 05/20/17 08:03 74 05/20/17 08:00 97.8 85 18 132/72 (92) 96 05/20/17 04:50 97.9 80 16 103/68 (80) 05/20/17 03:28 77 05/20/17 01:00 97.5 79 18 111/61 (78) 98 05/19/17 21:53 94 05/19/17 21:15 99.1 90 20 91/61 (71) 96 05/19/17 20:52 90 16 110/60 (77) 96 05/19/17 16:00 98.0 92 18 119/72 (88) 92 I/O 05/19/17 05/19/17 05/19/17 05/20/17 05/20/17 05/20/17 07:00 15:00 23:00 07:00 15:00 23:00 Intake Total 1100 ml Output Total 725 ml 1300 ml Balance 375 ml -1300 ml Intake Oral 1100 ml Output Urine Total 725 ml 1300 ml # Voids 1 2 # Bowel Movements 0 1 Result Diagram: 05/19/17 04505/[id number]/17449 Objective Remarks GENERAL: This is a frail appearing elderly male sitting in a chair. appears to have some weight loss with prominent bones including scapula SKIN: Cool and dry. HEAD: Atraumatic. Normocephalic. EYES: Extraocular motions intact. No scleral icterus. No injection or drainage. ENT: Uvula midline. Airway patent. NECK: Trachea midline. CARDIOVASCULAR: Regular rate and rhythm without murmurs, gallops, or rubs. No bruises seen where he points to area of pain lower rib cage bilaterally but tender to palpation RESPIRATORY: Poor inspiratory effort and airflow GASTROINTESTINAL: Abdomen soft, nondistended. MUSCULOSKELETAL: Extremities without clubbing, cyanosis, or edema. No calf tenderness. bruising knees left more than right NEUROLOGICAL: Awake and alert. Cranial nerves II through XII intact. Motor and sensory grossly within normal limits. 4/5 strength in the right side v left. Normal speech. slow and halting gait per PT Urinary Catheter: No Vascular Central Line Catheter: No A/P Assessment and Plan Patient is a 66 y/o M w/hx of right hip fracture presenting with recent multiple falls and great toe fracture seen on XR. Multiple falls likely due to frailty. Plan to start patient with PT this admission. fracture of toe plus hip will continue to discuss with him going for more rehab plus will consider decreasing sedating meds. appreciate eval of PT here and OT as his arms are very weak as well as his legs Problem List: (1) Intertrochanteric fracture of right hip ICD Codes: S72.141A - Displaced intertrochanteric fracture of right femur, initial encounter for closed fracture Status: Acute Plan: Hx of fracture in January 2017. Underwent hip reduction and intramedullary nail fixation. Further intervention not necessary at this time. At home, patient takes 15 mg morphine 3 times a day, 10 mg oxycodone 4 times a day - Morphine 15 mg PO Q8H for pain - Plan for PT assessment and treatment - unsure if pain meds are contributing to falls -consider weaning meds (2) Age-related physical debility ICD Codes: R54 - Age-related physical debility Plan: Plan with multiple falls in the past 4-5 days. Recommend physical therapy. Fall precautions. Neuro check q 4 hours. (3) Nail avulsion of toe ICD Codes: S91.209A - Unspecified open wound of unspecified toe(s) with damage to nail, initial encounter Status: Acute Plan: Toenail removed in the ED. -Wound care consulted (4) Intracranial bleeding ICD Codes: I62.9 - Nontraumatic intracranial hemorrhage, unspecified Plan: Neurosurgeon thinks sub acute injury Do not recommend surgical intervention as of now will hold anticoagulation for now (5) HLD (hyperlipidemia) ICD Codes: E78.5 - Hyperlipidemia, unspecified Status: Chronic Plan: Con't home atorvastatin (6) History of alcoholism ICD Codes: F10.21 - Alcohol dependence, in remission Status: Resolved Plan: CIWA protocol (7) Tobacco abuse ICD Codes: Z72.0 - Tobacco use Status: Chronic Plan: Nicotine patch 14 mg daily. Tobacco cessation reviewed. (8) Nutrition, metabolism, and development symptoms ICD Codes: R63.8 - Other symptoms and signs concerning food and fluid intake Status: Acute Plan: Fluids: none Electrolytes: none, as needed Nutrition: Regular Diet, declines ensure. He reports eating well here but is eating poorly at home GI prophy: not indicated DVT prophy: SCDs, fall risk plus questionable old bleed in his head Problem Qualifiers (1) Intertrochanteric fracture of right hip: (2) Nail avulsion of toe: Qualified Codes: S91.209A - Unspecified open wound of unspecified toe(s) with damage to nail, initial encounter (3) HLD (hyperlipidemia): Qualified Codes: E78.00 - Pure hypercholesterolemia, unspecified Erika Vincent MD May 20, 2017 13:39
[2017-05-20] MEDS: ATORVASTATIN 80 MG TAB PO SCH (20:49)
--- NOTE | 2017-05-20 21:05 | EKG ---
Date Performed: 05/18/2017 Time Performed: 21:43:04 PTAGE: 66 years EKG: Sinus rhythm BORDERLINE ECG PREVIOUS TRACING : 02/14/2017 01.33 DOCTOR: Jim Morales Interpretating Date/Time 05/20/2017 20:56:22
[2017-05-21] MEDS: ACETAMINOPHEN/HYDROcodone 325 MG/7.5 MG TAB PO SCH ×4 (00:20→12:41)
[2017-05-21 01:14] VITALS: BP 119/64; PULSE 78; RESP 18; TEMP 97.8; O2SAT 96
[2017-05-21] MEDS: MORPHINE SULFATE 15 MG TAB PO SCH ×2 (05:51→13:26)
[2017-05-21] MEDS: BACLOFEN 10 MG TAB PO SCH ×2 (05:51→13:26)
[2017-05-21 06:20] VITALS: BP 119/64; PULSE 77; RESP 18; TEMP 97.7; O2SAT 95
[2017-05-21 07:47] LABS: HEMATOCRIT 35.5 % (39.0-51.0); MEAN CELL VOLUME 89.5 FL (80.0-100.0); MEAN CORPUSCULAR HEMOGLOBIN 30.1 PG (27.0-34.0); MEAN CORPUSCULAR HGB CONC 33.6 % (32.0-36.0); PLATELET COUNT 249 TH/MM3 (150-450); RED BLOOD COUNT 3.96 MIL/MM3 (4.50-5.90); RED CELL DISTRIBUTION WIDTH 13.8 % (11.6-17.2); REVIEW FLAG FINAL; WHITE BLOOD COUNT 4.2 TH/MM3 (4.0-11.0)
[2017-05-21] MEDS: GABAPENTIN 400 MG CAP PO SCH ×2 (08:53→12:41)
[2017-05-21] MEDS: DOCUSATE SODIUM 50 MG/SENNA 8.6 MG TAB PO SCH (08:53)
[2017-05-21] MEDS: carBAMazepine 200 MG TAB PO SCH (08:54)
[2017-05-21] MEDS: LORATADINE 10 MG TAB PO SCH (08:55)
[2017-05-21] MEDS: SODIUM CHLORIDE 0.9% FLUSH 10 ML FLUSH IV FLUSH SCH (08:56)
[2017-05-21] MEDS: CALCIUM/VITAMIN D 250 MG/125 U TAB PO SCH (08:56)
[2017-05-21 09:19] VITALS: PULSE 79
[2017-05-21 09:24] VITALS: BP 123/70; PULSE 79; RESP 18; TEMP 97.9; O2SAT 94
--- NOTE | 2017-05-21 11:02 | HHI.FPPN ---
Subjective Remarks Vitals wnl. Adequate I/Os. Patient complained of redness on arm for which he was taking antibiotics. States he has only completed half of his Abx treatment. No other acute complaints. (Sarah Beth Kim MD R1) Objective Vitals Vital Signs Date Time Temp Pulse Resp B/P (MAP) Pulse Ox O2 Delivery O2 Flow Rate FiO2 05/21/17 09:24 97.9 79 18 123/70 (87) 94 05/21/17 09:19 79 05/21/17 06:20 97.7 77 18 119/64 (82) 95 05/21/17 01:14 97.8 78 18 119/64 (82) 96 05/20/17 23:21 78 05/20/17 22:03 98.1 91 18 101/61 (74) 95 05/20/17 18:02 96 21 05/20/17 16:00 97.6 82 18 134/76 (95) 96 05/20/17 13:19 97 05/20/17 12:00 97.7 84 18 119/62 (81) 97 I/O 05/20/17 05/20/17 05/20/17 05/21/17 05/21/17 05/21/17 07:00 15:00 23:00 07:00 15:00 23:00 Intake Total 360 ml Output Total 850 ml Balance -490 ml Intake Oral 360 ml Output Urine Total 850 ml # Voids 2 2 # Bowel Movements 0 (Sarah Beth Kim MD R1) Result Diagram: 05/21/1759 05/21/1759 Objective Remarks GENERAL: This is a frail appearing elderly male sitting in a chair. appears to have some weight loss with prominent bones including scapula SKIN: Cool and dry. HEAD: Atraumatic. Normocephalic. EYES: Extraocular motions intact. No scleral icterus. No injection or drainage. ENT: Uvula midline. Airway patent. NECK: Trachea midline. CARDIOVASCULAR: Regular rate and rhythm without murmurs, gallops, or rubs. No bruises seen where he points to area of pain lower rib cage bilaterally but tender to palpation RESPIRATORY: Poor inspiratory effort and airflow. GASTROINTESTINAL: Abdomen soft, nondistended. MUSCULOSKELETAL: Small area of redness on right arm extensor surface. No swelling or warmth noted. NEUROLOGICAL: Awake and alert. No focal deficits. (Sarah Beth Kim MD R1) A/P Assessment and Plan Patient is a 66 y/o M w/hx of right hip fracture presenting with recent multiple falls and great toe fracture seen on XR. Multiple falls likely due to frailty. Plan to start patient with PT this admission. fracture of toe plus hip will continue to discuss with him going for more rehab plus will consider decreasing sedating meds. appreciate eval of PT here and OT as his arms are very weak as well as his legs Discharge Planning Case management consulted. [facility] will evaluate patient today for admission. (Sarah Beth Kim MD R1) Attending Attestation Patient seen and examined. Case reviewed and discussed with the resident team. Agree with plan of care as discussed with me and documented in the resident note. He is accepted by [facility] and will go there today. He is very weak and needs strengthening (Erika Vincent MD) Problem List: (1) Intertrochanteric fracture of right hip ICD Codes: S72.141A - Displaced intertrochanteric fracture of right femur, initial encounter for closed fracture Status: Acute Plan: Hx of fracture in January 2017. Underwent hip reduction and intramedullary nail fixation. Further intervention not necessary at this time. At home, patient takes 15 mg morphine 3 times a day, 10 mg oxycodone 4 times a day - Morphine 15 mg PO Q8H for pain - Plan for PT assessment and treatment - unsure if pain meds are contributing to falls -consider weaning meds (2) Age-related physical debility ICD Codes: R54 - Age-related physical debility Plan: Plan with multiple falls in the past 4-5 days. Rec PT TID OT recs pending Fall precautions. Neuro check q 4 hours. (3) Nail avulsion of toe ICD Codes: S91.209A - Unspecified open wound of unspecified toe(s) with damage to nail, initial encounter Status: Acute Plan: Toenail removed in the ED. - Wound care (4) Intracranial bleeding ICD Codes: I62.9 - Nontraumatic intracranial hemorrhage, unspecified Status: Chronic Plan: Tiny solitary density seen on CT in frontoparietal region, could represent small hemorrhage Neurosurgeon thinks sub acute injury Do not recommend surgical intervention as of now will hold anticoagulation for now (5) HLD (hyperlipidemia) ICD Codes: E78.5 - Hyperlipidemia, unspecified Status: Chronic Plan: Con't home atorvastatin (6) Tobacco abuse ICD Codes: Z72.0 - Tobacco use Status: Chronic Plan: Nicotine patch 14 mg daily. Tobacco cessation reviewed. (7) Nutrition, metabolism, and development symptoms ICD Codes: R63.8 - Other symptoms and signs concerning food and fluid intake Status: Acute Plan: Fluids: none Electrolytes: none, as needed Nutrition: Regular Diet, declines ensure. He reports eating well here but is eating poorly at home GI prophy: not indicated DVT prophy: SCDs, fall risk plus questionable old bleed in his head (Sarah Beth Kim MD R1) Problem Qualifiers (1) Intertrochanteric fracture of right hip: (2) Nail avulsion of toe: Qualified Codes: S91.209A - Unspecified open wound of unspecified toe(s) with damage to nail, initial encounter (3) HLD (hyperlipidemia): Qualified Codes: E78.00 - Pure hypercholesterolemia, unspecified Sarah Beth Kim MD R1 May 21, 2017 11:02 Erika Vincent MD May 21, 2017 12:53
[2017-05-21 12:47] VITALS: BP 135/66; PULSE 98; RESP 18; TEMP 97.7; O2SAT 96
[2017-05-21 14:46] VITALS: O2SAT 96
== END 2017-05-21 15:09 | DRG 563 ==
LOC: NEPE 11:44 → NEDA 15:53 → N05A 18:40
PROVIDERS: ADMIT Family Medicine; ATTEND Family Medicine
DX: S92.424A Nondisplaced fracture of distal phalanx of right great toe, initial encounter for closed fracture (principal); I62.9 Nontraumatic intracranial hemorrhage, unspecified; J96.10 Chronic respiratory failure, unspecified whether with hypoxia or hypercapnia; I10 Essential (primary) hypertension; E78.5 Hyperlipidemia, unspecified; S91.201A Unspecified open wound of right great toe with damage to nail, initial encounter; S90.811A Abrasion, right foot, initial encounter; S90.812A Abrasion, left foot, initial encounter; J44.9 Chronic obstructive pulmonary disease, unspecified; M85.80 Other specified disorders of bone density and structure, unspecified site; Z86.73 Personal history of transient ischemic attack (TIA), and cerebral infarction without residual deficits; R29.6 Repeated falls; F10.21 Alcohol dependence, in remission; F17.210 Nicotine dependence, cigarettes, uncomplicated; Z96.641 Presence of right artificial hip joint; Y92.9 Unspecified place or not applicable; W19.XXXA Unspecified fall, initial encounter
CPT/HCPCS: 11730; 70450; 71010; 71110; 72125; 73502; 73630; 73660; 80048; 80053; 80156; 81001; 82607; 82746; 82948; 84443; 84484; 85025; 85027; 85610; 85730; 93005; 96360; J7030; L0150; L3260

== ENCOUNTER 2018-04-19 22:39 | Inpatient (IN) ==
--- NOTE | 2018-04-20 01:46 | ED ---
HPI General Chief complaint: Weakness Stated complaint: Weakness Time Seen by Provider: 04/20/18 01:25 Source: patient Mode of arrival: EMS Limitations: no limitations History of Present Illness HPI Narrative: 67-year-old male was brought to the ED from [facility] for generalized malaise and weakness. Patient states the symptoms started earlier today. Patient states that he usually can walk around with a walker however unable to do that today. Patient denies any headache. Patient denies any visual change. Patient denies any chest pain or shortness of breath. Patient denies abdominal pain. Patient denies any focal weakness or numbness of extremity. Patient denies dysuria frequency. Patient denies any fever chills. Patient has history of neuropathy, COPD and TIA. MD Complaint: generalized weakness Onset (ago): hour(s) Duration: constant Location: generalized Migration: none Severity: moderate Severity scale (1-10): 5 Relieving factors: none Exacerbating factors: none Associated symptoms: denies other symptoms Related Data Home Medications Medication Instructions Recorded Confirmed albuterol sulfate [Ventolin HFA] 2 puff INHALATION Q4-6H PRN 04/20/18 04/20/18 aspirin [Aspir-81] 81 mg PO DAILY 04/20/18 04/20/18 atorvastatin [Lipitor] 80 mg PO DAILY 04/20/18 04/20/18 baclofen 10 mg PO QID 04/20/18 04/20/18 calcium carbonate [Calcium 600] 600 mg PO BID 04/20/18 04/20/18 carbamazepine [Tegretol] 400 mg PO TID 04/20/18 04/20/18 cholecalciferol (vitamin D3) 2,000 unit PO DAILY 04/20/18 04/20/18 [Vitamin D3] docusate sodium 100 mg PO TID 04/20/18 04/20/18 duloxetine 30 mg PO DAILY 04/20/18 04/20/18 fluticasone [Flonase Allergy See Protocol INTRANASAL DAILY 04/20/18 04/20/18 Relief] gabapentin 800 mg PO QID 04/20/18 04/20/18 hydrocodone-acetaminophen 1 tab PO Q4-6H PRN 04/20/18 04/20/18 hydrocodone-acetaminophen [Garland] 1 tab PO Q4-6H PRN 04/20/18 04/20/18 indomethacin 50 mg PO TID 04/20/18 04/20/18 loratadine [Claritin] 10 mg PO DAILY 04/20/18 04/20/18 menthol [Biofreeze (menthol)] 04/20/18 04/20/18 morphine 30 mg PO BID 04/20/18 04/20/18 polyethylene glycol 3350 [Miralax] 17 g PO DAILY 04/20/18 04/20/18 sennosides-docusate sodium 1 tab PO BID PRN 04/20/18 04/20/18 [Senokot-S] terbinafine HCl [Lamisil AT] 1 applic TOPICAL BID 04/20/18 04/20/18 Allergies Allergy/AdvReac Type Severity Reaction Status Date / Time No Known Allergies Allergy Uncoded 05/18/17 12:37 Review of Systems ROS: all other systems reviewed are negative [facility] Medical History Medical History COPD (chronic obstructive pulmonary disease) (Acute) Neuropathy (Acute) TIA (transient ischemic attack) (Acute) Surgical History Surgical History History of orthopedic surgery (Acute) Social History Social History Substance History: No History of Abuse Smoking Status: Former smoker How Often Do You Have a Drink Containing Alcohol: Never Recent Travel in [facility] within the Last 8 Weeks: No Recent Out of Country Travel within the Last 8 Weeks: No Immunization History Tetanus Immunization: Unsure Hx Influenza Vaccine This Season: No Exam Narrative Exam Narrative: GENERAL: Well-nourished, well-developed patient. SKIN: Focused skin assessment warm/dry. HEAD: Normocephalic. EYES: No scleral icterus. No injection or drainage. NECK: Supple, trachea midline. No JVD or lymphadenopathy. CARDIOVASCULAR: Regular rate and rhythm without murmurs, gallops, or rubs. RESPIRATORY: Breath sounds equal bilaterally. No accessory muscle use. GASTROINTESTINAL: Abdomen soft, non-tender, nondistended. MUSCULOSKELETAL: No cyanosis, or edema. BACK: Nontender without obvious deformity. No CVA tenderness. Neurologic exam: Patient with mild lethargy however answer questions appropriately. No obvious focal neurologic deficit. Course Initial Documented Vital Signs Temperature 97.8 F 04/20/18 01:25 Pulse Rate 87 04/20/18 01:25 Respiratory Rate 18 04/20/18 01:25 Blood Pressure 150/85 H 04/20/18 01:25 Pulse Oximetry 95 04/20/18 01:25 Last Documented Vital Signs Temperature 97.8 F 04/20/18 01:25 Pulse Rate 79 04/20/18 02:46 Respiratory Rate 16 04/20/18 02:46 Blood Pressure 128/71 04/20/18 02:46 Pulse Oximetry 97 04/20/18 02:46 Medical Decision Making MDM Narrative Medical decision making narrative: 67-year-old male with generalized malaise and weakness. Normal saline solution 100 cc an hour. Cefepime 1 g IV. Zithromax 500 mg IV. Medical Screen Exam Complete: Yes Emergency Medical Condition: Yes Differential Diagnosis Differential Diagnosis: Differential diagnosis including dehydration, electrolyte imbalance, pneumonia, UTI, sepsis. Lab Data Lab results reviewed: Yes I reviewed the patient's lab results. Result diagrams: 04/20/18 02:05 04/20/18 02:05 Lab Results 04/20/18 04/20/18 04/20/18 Range/Units 02:05 02:05 02:05 WBC 5.3 (4.0-11.0) th/mm3 RBC 4.22 L (4.50-5.90) mil/mm3 Hgb 12.6 L (13.0-17.0) gm/dL Hct 37.5 L (39.0-51.0) % MCV 88.8 (80.0-100.0) fL MCH 29.9 (27.0-34.0) pg MCHC 33.7 (32.0-36.0) % RDW 13.8 (11.6-17.2) % Plt Count 188 (150-450) th/mm3 MPV 7.8 (7.0-11.0) fL Neut % (Auto) 66.2 (16.0-70.0) % Lymph % (Auto) 23.1 (9.0-44.0) % Lander % (Auto) 7.1 (0.0-8.0) % Eos % (Auto) 2.6 (0.0-4.0) % Baso % (Auto) 1.0 (0.0-2.0) % Neut # (Auto) 3.5 (1.8-7.7) th/mm3 Lymph # (Auto) 1.2 (1.0-4.8) th/mm3 Lander # (Auto) 0.4 (0.0-0.9) th/mm3 Eos # (Auto) 0.1 (0.0-0.4) th/mm3 Baso # (Auto) 0.1 (0.0-0.2) th/mm3 WBC Differential . Differential Comment Auto diff final PT 10.7 (9.8-11.6) sec INR 1.1 Ratio Sodium 133 L (136-145) meq/L Potassium 4.4 (3.5-5.1) meq/L Chloride 93 L (98-107) meq/L Carbon Dioxide 32.3 H (21.0-32.0) meq/L Anion Gap 8 (5-15) meq/L BUN 14 (7-18) mg/dL Creatinine 0.79 (0.60-1.30) mg/dL Estimated GFR Greater than 89 (>89) mL/min Random Glucose 84 (74-106) mg/dL Lactic Acid (0.4-2.0) mmol/L Calcium 8.8 (8.5-10.1) mg/dL Total Bilirubin 0.4 (0.2-1.0) mg/dL AST 15 (15-37) U/L ALT 17 (12-78) U/L Alkaline Phosphatase 90 (45-117) U/L Total Creatine Kinase 92 (39-308) U/L Troponin I Less than 0.02 L (0.02-0.05) ng/mL B-Natriuretic Peptide (0-100) pg/mL Total Protein 5.9 L (6.4-8.2) g/dL Albumin 3.0 L (3.4-5.0) g/dL TSH 1.260 (0.358-3.740) uIU/mL Urine Color (Yellw/Straw) Urine Clarity (Clear) Urine pH (5.0-8.5) Ur Specific Belle (1.002-1.035) Urine Protein (Neg-Trace) mg/dL Urine Glucose (UA) (Negative) mg/dL Urine Ketones (Negative) mg/dL Urine Occult Blood (Negative) Urine Nitrate (Negative) Urine Bilirubin (Negative) Urine Urobilinogen (Less than 2) mg/dL Ur Leukocyte Esterase (Negative) Urine RBC (0-3) /hpf Urine WBC (0-5) /hpf Ur Squamous Epith Cells (0-5) /hpf Urine Mucus (Occasional) /lpf Micro UA Comment Ur Microscopic Review Urine Culture Comments 04/20/18 04/20/18 04/20/18 Range/Units 02:05 02:05 02:15 WBC (4.0-11.0) th/mm3 RBC (4.50-5.90) mil/mm3 Hgb (13.0-17.0) gm/dL Hct (39.0-51.0) % MCV (80.0-100.0) fL MCH (27.0-34.0) pg MCHC (32.0-36.0) % RDW (11.6-17.2) % Plt Count (150-450) th/mm3 MPV (7.0-11.0) fL Neut % (Auto) (16.0-70.0) % Lymph % (Auto) (9.0-44.0) % Lander % (Auto) (0.0-8.0) % Eos % (Auto) (0.0-4.0) % Baso % (Auto) (0.0-2.0) % Neut # (Auto) (1.8-7.7) th/mm3 Lymph # (Auto) (1.0-4.8) th/mm3 Lander # (Auto) (0.0-0.9) th/mm3 Eos # (Auto) (0.0-0.4) th/mm3 Baso # (Auto) (0.0-0.2) th/mm3 WBC Differential Differential Comment PT (9.8-11.6) sec INR Ratio Sodium (136-145) meq/L Potassium (3.5-5.1) meq/L Chloride (98-107) meq/L Carbon Dioxide (21.0-32.0) meq/L Anion Gap (5-15) meq/L BUN (7-18) mg/dL Creatinine (0.60-1.30) mg/dL Estimated GFR (>89) mL/min Random Glucose (74-106) mg/dL Lactic Acid 0.8 (0.4-2.0) mmol/L Calcium (8.5-10.1) mg/dL Total Bilirubin (0.2-1.0) mg/dL AST (15-37) U/L ALT (12-78) U/L Alkaline Phosphatase (45-117) U/L Total Creatine Kinase (39-308) U/L Troponin I (0.02-0.05) ng/mL B-Natriuretic Peptide 32 (0-100) pg/mL Total Protein (6.4-8.2) g/dL Albumin (3.4-5.0) g/dL TSH (0.358-3.740) uIU/mL Urine Color Yellow (Yellw/Straw) Urine Clarity Clear (Clear) Urine pH 6.0 (5.0-8.5) Ur Specific Belle 1.017 (1.002-1.035) Urine Protein Negative (Neg-Trace) mg/dL Urine Glucose (UA) Negative (Negative) mg/dL Urine Ketones Trace H (Negative) mg/dL Urine Occult Blood Small H (Negative) Urine Nitrate Negative (Negative) Urine Bilirubin Negative (Negative) Urine Urobilinogen Less than 2 (Less than 2) mg/dL Ur Leukocyte Esterase Negative (Negative) Urine RBC 13 H (0-3) /hpf Urine WBC 4 (0-5) /hpf Ur Squamous Epith Cells <1 (0-5) /hpf Urine Mucus Few H (Occasional) /lpf Micro UA Comment Culture not ind Ur Microscopic Review Not Reportable Urine Culture Comments Culture not ind Imaging Data Attestation: I personally reviewed and interpreted this imaging study as follows : Radiologist's impression: Chest X-Ray 04/20/18 01:37 CONCLUSION: Suspected mild atelectasis or consolidation at the left base. Head CT 04/20/18 01:37 CONCLUSION: No acute intracranial abnormality is seen. . Discharge Plan Discharge Disposition Patient Disposition: 30 Still Patient Discharge Details Diagnosis: Pneumonia Physicians Team ED Provider: Pierre Payton Primary Care Provider: UNKNOWN, Rxs /Orders / Referrals /Forms Prescriptions: No Action baclofen 10 mg Tablet 10 mg PO QID RF: 0 hydrocodone-acetaminophen 7.5-325 mg Tablet 1 tab PO Q4-6H PRN (Reason: Pain) RF: 0 hydrocodone-acetaminophen [Garland] 7.5-325 mg Tablet 1 tab PO Q4-6H PRN (Reason: Pain) RF: 0 indomethacin 50 mg Capsule 50 mg PO TID RF: 0 albuterol sulfate [Ventolin HFA] 90 mcg/actuation Hfa Aerosol Inhaler 2 puff INHALATION Q4-6H PRN (Reason: Shortness Of Breath) RF: 0 docusate sodium 100 mg Tablet 100 mg PO TID RF: 0 terbinafine HCl [Lamisil AT] 1 % Cream 1 applic TOPICAL BID RF: 0 atorvastatin [Lipitor] 80 mg Tablet 80 mg PO DAILY RF: 0 polyethylene glycol 3350 [Miralax] 17 gram Powder In Packet 17 g PO DAILY RF: 0 sennosides-docusate sodium [Senokot-S] 8.6-50 mg Tablet 1 tab PO BID PRN (Reason: Constipation) RF: 0 gabapentin 400 mg Capsule 800 mg PO QID RF: 0 aspirin [Aspir-81] 81 mg Tablet,Delayed Release (Dr/Ec) 81 mg PO DAILY RF: 0 carbamazepine [Tegretol] 200 mg Tablet 400 mg PO TID RF: 0 calcium carbonate [Calcium 600] 600 mg calcium (1,500 mg) Tablet 600 mg PO BID RF: 0 morphine 30 mg Tablet 30 mg PO BID RF: 0 fluticasone [Flonase Allergy Relief] 50 mcg/actuation [place],Suspension Intranasal DAILY RF: 0 loratadine [Claritin] 10 mg Tablet 10 mg PO DAILY RF: 0 cholecalciferol (vitamin D3) [Vitamin D3] 1,000 unit Capsule 2,000 unit PO DAILY RF: 0 duloxetine 30 mg Capsule,Delayed Release(Dr/Ec) 30 mg PO DAILY RF: 0 menthol [Biofreeze (menthol)] 4 % Gel RF: 0 Status ED Status: Admitted Patient
--- NOTE | 2018-04-20 02:04 | XR ---
EXAM DATE: 04/20/2018 1:37 AM EDT AGE/SEX: 67 years / Male INDICATIONS: Short of breath. CLINICAL DATA: This is the patient's initial encounter. Patient reports that signs and symptoms have been present for 2 days and indicates a pain score of 0/10. MEDICAL/SURGICAL HISTORY: Emphysema. Chronic obstructive pulmonary disease. Hypertension. Neuro sukumar. . Fusion, cervical. Right hip ORIF. COMPARISON: No prior exams available for comparison. FINDINGS: The heart size is normal. There is minimal patchy density at the left base. The right lung is clear. No effusion is seen. There is an anterior cervical fusion plate present. There is a dextrocurvature o f the thoracic spine. CONCLUSION: Suspected mild atelectasis or consolidation at the left base. Electronically signed by: Brodie Jorgensen MD 04/20/2018 2:03 AM EDT
[2018-04-20] MEDS: Sod Chloride 0.9% Inj 1,000 ML IV.CONT SCH ×3 (02:21→20:14)
[2018-04-20 02:35] LABS: Baso # (Auto) 0.1 th/mm3 (0.0-0.2); Eos # (Auto) 0.1 th/mm3 (0.0-0.4); Eos % (Auto) 2.6 % (0.0-4.0); Hematocrit 37.5 % (39.0-51.0); Hemoglobin 12.6 gm/dL (13.0-17.0); Lymph # (Auto) 1.2 th/mm3 (1.0-4.8); Lymph % (Auto) 23.1 % (9.0-44.0); Mean Corpuscular HGB Conc 33.7 % (32.0-36.0); Mean Corpuscular Hemoglobin 29.9 pg (27.0-34.0); Mean Corpuscular Volume 88.8 fL (80.0-100.0); Mean Platelet Volume 7.8 fL (7.0-11.0); Mono # (Auto) 0.4 th/mm3 (0.0-0.9); Mono % (Auto) 7.1 % (0.0-8.0); Neut # (Auto) 3.5 th/mm3 (1.8-7.7); Neut % (Auto) 66.2 % (16.0-70.0); Platelet Count 188 th/mm3 (150-450); Red Blood Count 4.22 mil/mm3 (4.50-5.90); Red Cell Distribution Width 13.8 % (11.6-17.2); White Blood Count 5.3 th/mm3 (4.0-11.0)
--- NOTE | 2018-04-20 02:40 | CT ---
EXAM DATE: 04/20/2018 1:49 AM EDT AGE/SEX: 67 years / Male INDICATIONS: Altered mental status. CLINICAL DATA: This is the patient's initial encounter. Patient reports that signs and symptoms have been present for 1 day and indicates a pain score of 0/10. MEDICAL/SURGICAL HISTORY: Chronic obstructive pulmonary disease. Cerebrovascular disease. Neuropat hy None. RADIATION DOSE: 56.35 CTDI (mGy) COMPARISON: No prior exams available for comparison. TECHNIQUE: CT of the head without contrast. Using automated exposure control and adjustment of the mA and/or kV according to patient size, radiation dose was kept as low as reasonably achievable to ob tain optimal diagnostic quality images. DICOM format image data is available electronically for revi ew and comparison. FINDINGS: Cerebrum: The ventricles are normal for age. The cortical sulci are mildly widened. No evidence of m idline shift, mass lesion, hemorrhage or acute infarction. No extraaxial fluid collections are seen. Posterior Fossa: The cerebellum and brainstem are intact. The 4th ventricle is midline. The cerebe llopontine angle is unremarkable. Extracranial: The visualized portion of the orbits is intact. Skull: The calvaria is intact. No evidence of skull fracture. CONCLUSION: No acute intracranial abnormality is seen. . Electronically signed by: Brodie Jorgensen MD 04/20/2018 2:39 AM EDT
[2018-04-20 02:42] LABS: Bilirubin,Urine Negative (Negative); Clarity,Urine Clear (Clear); Color,Urine Yellow (Yellw/Straw); Glucose,Urine (UA) Negative (Negative); Leukocyte Esterase,Urine Negative (Negative); Mucus,Urine Few /lpf (Occasional); Nitrite,Urine Negative (Negative); Specific Gravity,Urine 1.017 (1.002-1.035); Squamous Epithelial Cell,Urine <1 /hpf (0-5)
[2018-04-20 02:44] LABS: INR 1.1 Ratio; Prothrombin Time 10.7 sec (9.8-11.6)
[2018-04-20 03:09] LABS: Anion Gap 8 meq/L (5-15); Aspartate Aminotransferase 15 U/L (15-37); Blood Urea Nitrogen 14 mg/dL (7-18); Calcium 8.8 mg/dL (8.5-10.1); Carbon Dioxide 32.3 meq/L (21.0-32.0); Chloride 93 meq/L (98-107); Glomerular Filtration Rate Greater Than 89 mL/min (>89); Glucose,Random 84 mg/dL (74-106); Potassium 4.4 meq/L (3.5-5.1); Sodium 133 meq/L (136-145)
[2018-04-20 03:20] LABS: Alanine Aminotransferase 17 U/L (12-78); Alkaline Phosphatase 90 U/L (45-117); Total Protein 5.9 g/dL (6.4-8.2)
[2018-04-20 03:21] LABS: Creatine Kinase 92 U/L (39-308)
[2018-04-20] MEDS ORDERED: Azithromycin Inj 500 MG in Sodium Chlor 0.9% Inj 250 ML IV.SIG ONE (04:46)
[2018-04-20] MEDS ORDERED: Acetaminophen 325 MG Tablet PO ONE (05:17)
--- NOTE | 2018-04-20 07:30 | P.HPIM ---
History of Present Illness Service: [facility] Primary Care Physician: UNKNOWN Chief Complaint: weakness History of Present Illness: This is a 67-year-old CM with PMHx of Depression, TIA, and Chronic Pain was brought to the ED from [facility] for generalized malaise and weakness x1 day with SOB and dry cough. Patient reports that he has chronic pain at baseline but that he is able to walk with a walker. Patient lives at an [facility] ([facility] ) and reports that he gets some assistance with ADL's at baseline but can feed himself. Patient denies recent illness and sick contacts. Patient reports Chronic Back pain s/p surgery that he sees pain mgmt for, Dr. smith. Patient also has a PCP that he sees regularly. Patient denies chest pain, focal weakness , fever, and chills. Patient is compliant with meds. Per EMR review, on 05/2017 patient had a nontraumatic intracranial hemorrhage that was managed nonsurgically. - Diagnosis (1) Chronic pain (2) Depression (3) Hyponatremia (4) Anemia (5) Hyperlipemia (6) Pneumonia Inpatient Certification: I certify that the inpatient services were ordered in accordance with Medicare regulations governing the order. This includes certification that hospital inpatient services are reasonable and necessary and in the case of services not specified as inpatient-only under 42 CFR 419.22(n), that they are appropriately provided as inpatient services in accordance to with the 2-midnight benchmark under 43 CFR 412.3(e) Estimated Total Length of Stay (Days): 2 Plans for Post Hospital Care: SNF Review of Systems All other systems reviewed negative except as stated in HPI [facility] - History History Provided By: Patient - Medical History Medical History: Medical History (Last Reviewed 04/20/18 @ 11:00 by Paige Alvares MD) COPD (chronic obstructive pulmonary disease) Depression Neuropathy TIA (transient ischemic attack) - Surgical History Surgical History: Surgical History (Last Reviewed 04/20/18 @ 10:59 by Paige Alvares MD) History of orthopedic surgery - Family History Family History: Family History (Last Updated 04/20/18 @ 11:00 by Paige Alvares MD) Other Family history normal - Tobacco History Smoking Status: Former smoker - Alcohol History How Often Do You Have a Drink Containing Alcohol: Never - Substance Use History Substance History: No History of Abuse (lives in [facility]) - Travel History Recent Travel in the [facility] Within the Last 8 Weeks: No Recent Travel Out of the Country Within the Last 8 Weeks: No - Immunization History Tetanus Immunization: Unsure Hx Influenza Vaccine This Season: No Medications and Allergies Active Medications: Active Medications Albuterol (Albuterol Neb (Prn)) 2.5 mg NEB Q2HR NEB PRN PRN Reason: SHORTNESS OF BREATH Azithromycin (Zithromax) 500 mg PO DAILY YOLANDA Sodium Chloride (Ns Inj) 1,000 mls @ 100 mls/hr IV.CONT .Q10H [facility] Last Admin: 04/20/18 02:21 Dose: 100 mls/hr Ceftriaxone Sodium 1,000 mg/ (Sodium Chloride) 100 mls @ 200 mls/hr IV.SIG Q24H [facility] Last Infusion: 04/20/18 07:02 Dose: Infused Ipratropium [place] (Atrovent Neb) 0.5 mg NEB Q6HR NEB YOLANDA Sodium Chloride (Ns Flush) 2 ml IV.FLUSH BID YOLANDA Sodium Chloride (Ns Flush) 2 ml IV.FLUSH PRN PRN PRN Reason: FLUSH AFTER USING IV ACCESS Allergies Allergy/AdvReac Type Severity Reaction Status Date / Time No Known Allergies Allergy Uncoded 05/18/17 12:37 Home Medications Medication Instructions Recorded Confirmed Type albuterol sulfate [Ventolin HFA] 2 puff INHALATION Q4-6H PRN 04/20/18 04/20/18 History aspirin [Aspir-81] 81 mg PO DAILY 04/20/18 04/20/18 History atorvastatin [Lipitor] 80 mg PO DAILY 04/20/18 04/20/18 History baclofen 10 mg PO QID 04/20/18 04/20/18 History calcium carbonate [Calcium 600] 600 mg PO BID 04/20/18 04/20/18 History carbamazepine [Tegretol] 400 mg PO TID 04/20/18 04/20/18 History cholecalciferol (vitamin D3) 2,000 unit PO DAILY 04/20/18 04/20/18 History [Vitamin D3] docusate sodium 100 mg PO TID 04/20/18 04/20/18 History duloxetine 30 mg PO DAILY 04/20/18 04/20/18 History fluticasone [Flonase Allergy See Protocol INTRANASAL DAILY 04/20/18 04/20/18 History Relief] gabapentin 800 mg PO QID 04/20/18 04/20/18 History hydrocodone-acetaminophen 1 tab PO Q4-6H PRN 04/20/18 04/20/18 History hydrocodone-acetaminophen [Hyrum] 1 tab PO Q4-6H PRN 04/20/18 04/20/18 History indomethacin 50 mg PO TID 04/20/18 04/20/18 History loratadine [Claritin] 10 mg PO DAILY 04/20/18 04/20/18 History menthol [Biofreeze (menthol)] 04/20/18 04/20/18 History morphine 30 mg PO BID 04/20/18 04/20/18 History polyethylene glycol 3350 [Miralax] 17 g PO DAILY 04/20/18 04/20/18 History sennosides-docusate sodium 1 tab PO BID PRN 04/20/18 04/20/18 History [Senokot-S] terbinafine HCl [Lamisil AT] 1 applic TOPICAL BID 04/20/18 04/20/18 History Exam Vital signs: Vital Signs 04/20/18 01:25 04/20/18 01:37 04/20/18 02:46 Temperature 97.8 F Pulse Rate 87 79 Respiratory Rate 18 16 Blood Pressure 150/85 H 128/71 Pulse Oximetry 95 98 97 04/20/18 07:17 Temperature Pulse Rate 99 H Respiratory Rate 12 Blood Pressure 160/81 H Pulse Oximetry 94 L Intake & Output 04/19/18 04/20/18 04/20/18 18:59 06:59 18:59 Intake Total 200 / 200 Output Total 1600 / 1600 Balance -1400 / -1400 Intake: IV 200 / 200 Maxipime Inj 1,000 MG In NS Inj 100 / 100 100 ML @ 200 mls/hr IV.SIG ONCE ONE Rx#:[id number] Rocephin Inj 1,000 MG In NS Inj 100 / 100 100 ML @ 200 mls/hr IV.SIG Q24H YOLANDA Rx#:[id number] Output: Urine Amount (Catheter) 1600 / 1600 Indwelling Urethral Catheter 1600 / 1600 Narrative: GENERAL: well nourished male, wearing NC, in NAD SKIN: Warm and dry. Chronic venous stasis of bilateral LE. HEENT: Normocephalic. PERRLA. No scleral icterus. No injection or drainage. MOM. NECK: Supple, trachea midline. No JVD or lymphadenopathy. CARDIOVASCULAR: Regular rate and rhythm without murmurs, gallops, or rubs. RESPIRATORY: Mild crackles in L lung base, R lung clear. No accessory muscle use. GASTROINTESTINAL: Abdomen soft, non-tender, nondistended. MUSCULOSKELETAL: No cyanosis, or edema. Strength 3/5 of all extremities. BACK: Nontender without obvious deformity. No CVA tenderness. NEURO/PSYCH: AAOX3, pleasant Results - Labs CBC & Chem 7: 04/20/18 02:05 04/20/18 02:05 Labs: Short CBC 04/20/18 Range/Units 02:05 WBC 5.3 (4.0-11.0) th/mm3 Hgb 12.6 L (13.0-17.0) gm/dL Hct 37.5 L (39.0-51.0) % Plt Count 188 (150-450) th/mm3 BMP 04/20/18 02:05 Sodium 133 L Potassium 4.4 Chloride 93 L Carbon Dioxide 32.3 H BUN 14 Creatinine 0.79 Calcium 8.8 Cardiac Enzymes 04/20/18 Range/Units 02:05 Total Creatine Kinase 92 (39-308) U/L Troponin I Less than 0.02 L (0.02-0.05) ng/mL Liver Function 04/20/18 Range/Units 02:05 Total Bilirubin 0.4 (0.2-1.0) mg/dL AST 15 (15-37) U/L ALT 17 (12-78) U/L Alkaline Phosphatase 90 (45-117) U/L Albumin 3.0 L (3.4-5.0) g/dL Urine 04/20/18 Range/Units 02:15 Urine Color Yellow (Yellw/Straw) Urine Clarity Clear (Clear) Urine pH 6.0 (5.0-8.5) Ur Specific [place] 1.017 (1.002-1.035) Urine Protein Negative (Neg-Trace) mg/dL Urine Glucose (UA) Negative (Negative) mg/dL - Imaging Impressions Chest X-Ray 04/20/18 01:37 CONCLUSION: Suspected mild atelectasis or consolidation at the left base. Head CT 04/20/18 01:37 CONCLUSION: No acute intracranial abnormality is seen. . Caprini VTE Risk Assessment Caprini VTE Risk Assessment: No/Low Risk (score <= 1) Caprini Risk Assessment Model: Point Value = 1 Point Value = 2 Point Value = 3 Point Value = 5 Age 41-60 Minor surgery BMI > 25 kg/m2 Swollen legs Varicose veins or History of unexplained or recurrent spontaneous Oral contraceptives or hormone replacement Sepsis (< 1 month) Serious lung disease, including pneumonia (< 1 month) Abnormal pulmonary function Acute myocardial infarction Congestive heart failure (< 1 month) History of inflammatory bowel disease Medical patient at bed rest Age 61-74 Arthroscopic surgery Major open surgery (> 45 min) Laparoscopic surgery (> 45 min) Malignancy Confined to bed (> 72 hours) Immobilizing plaster cast Central venous access Age >= 75 History of VTE Family history of VTE Factor V Leiden Prothrombin [id number] Lupus anticoagulant Anticardiolipin antibodies Elevated serum homocysteine Heparin-induced thrombocytopenia Other congenital or acquired thrombophilia Stroke (< 1 month) Elective arthroplasty Hip, pelvis, or leg fracture Acute spinal cord injury (< 1 month) Prophylaxis Regimen: Total Risk Factor Score Risk Level Prophylaxis Regimen 0-1 Low Early ambulation 2 Moderate Order ONE of the following: *Sequential Compression Device (SCD) *Heparin 5000 units SQ BID 3-4 Higher Order ONE of the following medications: *Heparin 5000 units SQ TID *Enoxaparin/Lovenox 40 mg SQ daily (WT < 150 kg, CrCl > 30 mL/min) *Enoxaparin/Lovenox 30 mg SQ daily (WT < 150 kg, CrCl > 10-29 mL/min) *Enoxaparin/Lovenox 30 mg SQ BID (WT < 150 kg, CrCl > 30 mL/min) AND/OR *Sequential Compression Device (SCD) 5 or more Highest Order ONE of the following medications: *Heparin 5000 units SQ TID (Preferred with Epidurals) *Enoxaparin/Lovenox 40 mg SQ daily (WT < 150 kg, CrCl > 30 mL/min) *Enoxaparin/Lovenox 30 mg SQ daily (WT < 150 kg, CrCl > 10-29 mL/min) *Enoxaparin/Lovenox 30 mg SQ BID (WT < 150 kg, CrCl > 30 mL/min) AND *Sequential Compression Device (SCD) Assessment and Plan - Assessment (1) Chronic pain Code(s): G89.29 - Other chronic pain Status: Acute (2) Depression Code(s): F32.9 - Major depressive disorder, single episode, unspecified Status : Acute (3) Hyponatremia Code(s): E87.1 - Hypo-osmolality and hyponatremia Status: Acute (4) Anemia Code(s): D64.9 - Anemia, unspecified Status: Acute (5) Hyperlipemia Code(s): E78.5 - Hyperlipidemia, unspecified Status: Acute (6) Pneumonia Code(s): J18.9 - Pneumonia, unspecified organism Status: Acute - Plan This is a 67-year-old CM with PMHx of Depression, TIA, and Chronic Pain was brought to the ED from [facility] for generalized malaise and weakness x1 day with SOB and dry cough. Per CXR patient found to have L Lung Base PNA, admitted for IP mgmt, HD#1 1. Health care Associated Pneumonia (HCAP) Curb Score 1, afebrile and Normal WBC Requiring 2L NC (on room air at baseline) On Ceftriaxone and Azithromycin start in the ED, due to USP and concern for Pseudomonas will switch to Levaquin IV QD and PipTazo IV Q6hrs F/U Strep urine antigen and Mycoplasma Will get CRP in AM and trend CXR: Suspected mild atelectasis or consolidation at the left base. 2. Hyponatremia Na 133 on admission NS @125ml/hr F/U BMP in AM 3. Anemia Hgb 12.6, denies acute bleeding Fe panel ordered, txt if Fe deficient Cont. to monitor F/U hemOccult 4. HTN Not on home meds, cont. to monitor Start meds if indicated Asymptomatic 5. hx of TIA/HLD Cont. home statin and ASA 6. Chronic Pain Nurse to verify pain med doses with pharmacy Cont. Hydrocodone PRN, Morphine BID, Carbamazepine, Ervin, baclofen, and Indomenthacin PRN. 7. COPD Combivent PRN 8. Hx of nontraumatic intracranial hemorrhage Dx 110/207 in our ED Managed nonsurgically Neg CT Head today, AAOX3 9. AR Cont. home Loratadine 10. DVT PPX: SCD's 11. Dispo: Cont. ABX and wean off of O2, D/C once stable, PT/OT consulted, patient lives in [facility] Code Status: DNR Discussed Condition With: patient, RN (6) Pneumonia Qualifiers: Pneumonia type: due to unspecified organism Laterality: left Lung location: lower lobe of lung Qualified Code(s): J18.1 - Lobar pneumonia, unspecified organism
[2018-04-20] MEDS ORDERED: TERBINAFINE TOPICAL SCH (09:00)
[2018-04-20] MEDS ORDERED: [UNRECOGNIZED DRUG - OTHER] TOPICAL SCH (09:00)
[2018-04-20] MEDS: carBAMazepine 200 MG Tablet PO SCH ×3 (09:24→17:33)
[2018-04-20] MEDS: Loratadine 10 MG Tablet PO SCH (09:27)
[2018-04-20] MEDS: Calcium Carbonate 500 MG Tablet PO SCH ×2 (09:27→20:13)
[2018-04-20] MEDS: Docusate Sodium 100 MG Capsule PO SCH ×3 (09:27→17:33)
[2018-04-20] MEDS: Baclofen 10 MG Tablet PO SCH ×4 (09:28→20:13)
[2018-04-20] MEDS: Gabapentin 400 MG Capsule PO SCH ×4 (09:28→20:13)
[2018-04-20] MEDS: Indomethacin 25 MG Capsule PO SCH ×3 (09:59→17:33)
[2018-04-20] MEDS: Piperacil/Tazo 4.5 GM Premix 4.5 GM/100 ML BAG IV.SIG SCH ×2 (12:59→18:04)
[2018-04-20 13:41] LABS: Anti-Streptolysin O Screen Neg (Neg)
[2018-04-20] MEDS: Morphine Sulfate 30 MG IR Tablet PO SCH (22:34)
[2018-04-21] MEDS: Piperacil/Tazo 4.5 GM Premix 4.5 GM/100 ML BAG IV.SIG SCH ×4 (00:04→18:27)
[2018-04-21] MEDS: Sod Chloride 0.9% Inj 1,000 ML IV.CONT SCH ×3 (04:26→18:27)
[2018-04-21 06:00] LABS: Baso # (Auto) 0.1 th/mm3 (0.0-0.2); Baso % (Auto) 0.9 % (0.0-2.0); Eos # (Auto) 0.1 th/mm3 (0.0-0.4); Eos % (Auto) 1.7 % (0.0-4.0); Hematocrit 35.6 % (39.0-51.0); Hemoglobin 12.1 gm/dL (13.0-17.0); Lymph # (Auto) 1.4 th/mm3 (1.0-4.8); Lymph % (Auto) 23.8 % (9.0-44.0); Mean Corpuscular HGB Conc 33.9 % (32.0-36.0); Mean Corpuscular Hemoglobin 30.1 pg (27.0-34.0); Mean Corpuscular Volume 88.9 fL (80.0-100.0); Mono # (Auto) 0.6 th/mm3 (0.0-0.9); Mono % (Auto) 9.5 % (0.0-8.0); Neut # (Auto) 3.8 th/mm3 (1.8-7.7); Neut % (Auto) 64.1 % (16.0-70.0); Platelet Count 179 th/mm3 (150-450); Red Cell Distribution Width 13.3 % (11.6-17.2)
[2018-04-21 06:23] LABS: Albumin 2.6 g/dL (3.4-5.0); Anion Gap 9 meq/L (5-15); Aspartate Aminotransferase 14 U/L (15-37); Blood Urea Nitrogen 11 mg/dL (7-18); Calcium 8.1 mg/dL (8.5-10.1); Carbon Dioxide 29.2 meq/L (21.0-32.0); Chloride 98 meq/L (98-107); Glomerular Filtration Rate Greater Than 89 mL/min (>89); Glucose,Random 74 mg/dL (74-106); Potassium 3.7 meq/L (3.5-5.1); Sodium 136 meq/L (136-145)
[2018-04-21 06:24] LABS: % Iron Saturation 41.2 % (20-50); Alanine Aminotransferase 15 U/L (12-78); Iron 97 mcg/dL (65-175); Total Iron Binding Capacity 235 mcg/dL (250-450)
[2018-04-21 06:27] LABS: Alkaline Phosphatase 79 U/L (45-117); Total Protein 5.3 g/dL (6.4-8.2)
--- NOTE | 2018-04-21 08:46 | P.PN ---
Subjective Interval history: This is a pleasant 67 y/o Male with Depression, TIA, chronic pain syndrome, who was brought in from [facility] due to generalized malaise and weakness x1 day with SOB and dry cough. Patient reports that he has chronic pain at baseline but that he is able to walk with a walker. Patient lives at an [facility]) and reports that he gets some assistance with ADL's at baseline but can feed himself. Patient denies recent illness and sick contacts. Patient reports Chronic Back pain s/p surgery that he sees pain mgmt for, Dr. Rosenthal. Patient also has a PCP that he sees regularly. Patient denies chest pain, focal weakness, fever, and chills. Patient is compliant with meds. Per EMR review, on 05/2017 patient had a nontraumatic intracranial hemorrhage that was managed nonsurgically. 04/21: Seen in his bedroom stable no complaint, discussed with nurse, no complaint, no nausea, vomit or diarrhea, continue antibiotics, Levofloxacin, Zosyn and following blood cultures, PT, real estate firm manager to follow if negative blood cultures negative to de escalate antibiotics. Physical Exam Vital signs: Vital Signs 04/20/18 08:57 04/20/18 09:00 04/20/18 12:00 Temperature 97.5 F L Pulse Rate 94 H 89 Respiratory Rate 19 19 Blood Pressure 153/84 H Pulse Oximetry 97 97 04/20/18 15:11 04/20/18 15:12 04/20/18 16:00 Temperature 98.0 F Pulse Rate 89 94 H Respiratory Rate 16 18 Blood Pressure 121/71 Pulse Oximetry 97 95 04/20/18 20:00 04/20/18 21:20 04/20/18 22:34 Temperature 99.3 F Pulse Rate 87 87 Respiratory Rate 21 20 18 Blood Pressure 132/80 Pulse Oximetry 95 04/20/18 22:53 04/21/18 00:00 04/21/18 03:50 Temperature 98.3 F Pulse Rate 85 82 76 Respiratory Rate 17 16 Blood Pressure 119/67 Pulse Oximetry 97 04/21/18 04:00 04/21/18 04:58 Temperature 98.3 F Pulse Rate 77 75 Respiratory Rate 18 Blood Pressure 132/70 Pulse Oximetry 96 Intake & Output 09/29/18 09/30/18 09/30/18 18:59 06:59 18:59 Intake Total 2340 / 2340 2280 / 2280 100 / 100 Output Total 3575 / 3575 1525 / 1525 Balance -1235 / -1235 755 / 755 100 / 100 Weight 84.9 kg Intake: IV 1800 / 1800 2100 / 2100 100 / 100 NS Inj 1,000 ML @ 125 mls/hr IV 1000 / 1000 2000 / 1999 .CONT .Q8H YOLANDA Rx#:[id number] Azithromycin Inj 500 MG In NS 250 / 250 Inj 250 ML @ 250 mls/hr IV.SIG ONCE ONE Rx#:[id number] Maxipime Inj 1,000 MG In NS Inj 100 / 100 100 ML @ 200 mls/hr IV.SIG ONCE ONE Rx#:[id number] Levaquin 750 mg Premix Inj 150 150 / 150 ML @ 100 mls/hr IV.SIG Q24H YOLANDA Rx#:[id number] Zosyn 4.5 GM Premix 4.5 gm In 200 / 200 100 / 100 100 / 100 100 ml @ 200 mls/hr IV.SIG Q6H YOLANDA Rx#:[id number] Rocephin Inj 1,000 MG In NS Inj 100 / 100 100 ML @ 200 mls/hr IV.SIG Q24H YOLANDA Rx#:[id number] Oral 540 / 540 180 / 180 Output: Urine 1974 1525 / 1525 Urine Amount (Catheter) 1600 / 1600 Indwelling Urethral Catheter 1600 / 1600 Other: # Voids 1 Date of Last Bowel Movement 04/20/18 04/20/18 # Bowel Movements 0 Narrative: GENERAL: well nourished male, wearing NC, in NAD SKIN: Warm and dry. Chronic venous stasis of bilateral LE. HEENT: Normocephalic. PERRLA. No scleral icterus. No injection or drainage. MOM. NECK: Supple, trachea midline. No JVD or lymphadenopathy. CARDIOVASCULAR: Regular rate and rhythm without murmurs, gallops, or rubs. RESPIRATORY: Mild crackles in L lung base, R lung clear. No accessory muscle use. GASTROINTESTINAL: Abdomen soft, non-tender, nondistended. MUSCULOSKELETAL: No cyanosis, or edema. Strength 3/5 of all extremities. BACK: Nontender without obvious deformity. No CVA tenderness. NEURO/PSYCH: AAOX3, pleasant - Urinary Catheter Management Indwelling Urethral Catheter Cath placed during this visit: yes Reason for continuing: Hourly intake/output Insertion date: 04/20/18 Insertion time: 06:56 Results - Labs CBC & Chem 7: 04/21/18 03:32 04/21/18 03:32 Laboratory Results - last 24 hr 04/20/18 04/20/18 04/20/18 08:57 12:15 12:15 WBC RBC Hgb Hct MCV MCH MCHC RDW Plt Count MPV Neut % (Auto) Lymph % (Auto) [place] % (Auto) Eos % (Auto) Baso % (Auto) Neut # (Auto) Lymph # (Auto) [place] # (Auto) Eos # (Auto) Baso # (Auto) WBC Differential Differential Comment Sodium Potassium Chloride Carbon Dioxide Anion Gap BUN Creatinine Estimated GFR Random Glucose Lactic Acid Calcium Iron TIBC % Saturation Total Bilirubin AST ALT Alkaline Phosphatase C-Reactive Protein 2.70 H B-Natriuretic Peptide 49 Total Protein Albumin Anti-Streptolysin Scrn Neg 04/21/18 04/21/18 04/21/18 03:32 03:32 07:27 WBC 6.0 RBC 4.00 L Hgb 12.1 L Hct 35.6 L MCV 88.9 MCH 30.1 MCHC 33.9 RDW 13.3 Plt Count 179 MPV 8.0 Neut % (Auto) 64.1 Lymph % (Auto) 23.8 [place] % (Auto) 9.5 H Eos % (Auto) 1.7 Baso % (Auto) 0.9 Neut # (Auto) 3.8 Lymph # (Auto) 1.4 [place] # (Auto) 0.6 Eos # (Auto) 0.1 Baso # (Auto) 0.1 WBC Differential . Differential Comment Auto diff final Sodium 136 Potassium 3.7 Chloride 98 Carbon Dioxide 29.2 Anion Gap 9 BUN 11 Creatinine 0.79 Estimated GFR Greater than 89 Random Glucose 74 Lactic Acid 0.6 Calcium 8.1 L Iron 97 TIBC 235 L % Saturation 41.2 Total Bilirubin 0.4 AST 14 L ALT 15 Alkaline Phosphatase 79 C-Reactive Protein 2.00 H B-Natriuretic Peptide Total Protein 5.3 L D Albumin 2.6 L Anti-Streptolysin Scrn Microbiology 04/20/18 13:29 Urine - Clean Catch Urine Legionella Antigen - Final Presumptive negative for Legionella pneumophila serogroup 1 antigen in urine, suggesting no recent or recurrent infection. Infection due to Legionella cannot be ruled out since other serogroups and species may cause disease, antigen may not be present in urine in early infection, and the level of antigen present in the urine may be below the detection limit of the test. - Imaging Chest X-Ray 04/20/18 01:37 CONCLUSION: Suspected mild atelectasis or consolidation at the left base. Head CT 04/20/18 01:37 CONCLUSION: No acute intracranial abnormality is seen. Assessment and Plan - Assessment (1) Chronic pain Code(s): G89.29 - Other chronic pain Status: Acute (2) Depression Code(s): F32.9 - Major depressive disorder, single episode, unspecified Status : Acute (3) Hyponatremia Code(s): E87.1 - Hypo-osmolality and hyponatremia Status: Acute (4) Anemia Code(s): D64.9 - Anemia, unspecified Status: Acute (5) Hyperlipemia Code(s): E78.5 - Hyperlipidemia, unspecified Status: Acute (6) Pneumonia Code(s): J18.9 - Pneumonia, unspecified organism Status: Acute - Plan This is a 67-year-old CM with PMHx of Depression, TIA, and Chronic Pain was brought to the ED from [facility] for generalized malaise and weakness x1 day with SOB and dry cough. Per CXR patient found to have L Lung Base PNA, admitted for IP mgmt, HD#1 1. Health care Associated Pneumonia (HCAP) at this time on Levofloxacin and Zosyn started by admitting physician following, blood cultures. sputum culture. CXR mild atelectasis or consolidation at the left base. 2. Hyponatremia Improving now 136 3. Anemia stable 4. Hypertension controlled. continue Home medicines. 5. History of TIA/Hyperlipidemia continue Home Statin and Aspirin. 6. Chronic pain syndrome Continue Hydrocodone PRN, Morphine BID, Carbamazepine, Ervin, baclofen, and Indomenthacin PRN. 7. COPD Combivent PRN 8. Hx of nontraumatic intracranial hemorrhage Dx 110/207 in our ED Managed nonsurgically Neg CT Head today, AAOX3 DVT PPX: SCD's PT consulted, Entry Level Staff Accountant consulted. continue present care. Code Status: DNR Discussed Condition With: Patient and nurse. Discharge Planning: Expected in one to two days. (6) Pneumonia Qualifiers: Pneumonia type: due to unspecified organism Laterality: left Lung location: lower lobe of lung Qualified Code(s): J18.1 - Lobar pneumonia, unspecified organism
[2018-04-21] MEDS ORDERED: Azithromycin 250 MG Tablet PO SCH (09:00)
[2018-04-21] MEDS: Baclofen 10 MG Tablet PO SCH ×4 (09:54→21:42)
[2018-04-21] MEDS: carBAMazepine 200 MG Tablet PO SCH ×3 (09:54→18:28)
[2018-04-21] MEDS: Morphine Sulfate 30 MG IR Tablet PO SCH ×2 (09:54→21:42)
[2018-04-21] MEDS: Calcium Carbonate 500 MG Tablet PO SCH ×2 (09:54→21:42)
[2018-04-21] MEDS: Gabapentin 400 MG Capsule PO SCH ×4 (09:54→21:42)
[2018-04-21] MEDS: Indomethacin 25 MG Capsule PO SCH ×3 (09:54→18:28)
[2018-04-21] MEDS: Docusate Sodium 100 MG Capsule PO SCH ×3 (09:55→18:28)
[2018-04-21] MEDS: Loratadine 10 MG Tablet PO SCH (09:55)
[2018-04-21] MEDS ORDERED: Gadobutrol PF 10 MMOL/10 ML Vial (for RAD) IV.SIG ONE (17:00)
--- NOTE | 2018-04-21 17:31 | MR ---
EXAM DATE: 04/21/2018 4:07 PM EDT AGE/SEX: 67 years / Male INDICATIONS: . Bilateral upper extremity weakness. History of anterior cervical fusion CLINICAL DATA: This is the patient's initial encounter. Patient reports that signs and symptoms have been present for 4 - 6 days and indicates a pain score of 5/10. MEDICAL/SURGICAL HISTORY: Hypertension. Chronic obstructive pulmonary disease. Fusion, cervica l. ORIF right femur. COMPARISON: [facility] [place], MRI CERVICAL SPINE W & W/O CONTRAST, 05/30/2017. . TECHNIQUE: Multiplanar, multisequence MRI examination of the cervical spine was performed without an d with 8 ml Gadavist (gadobutrol) contrast as a single exam dose. FINDINGS: Vertebrae: Normal vertebral body height. Homogeneous marrow signal. There is reversal of the normal cervical lordosis which is stable in appearance. Alignment: There is a minimal grade 1 anterior spondylolisthesis of C7 on C8 without significant tera nge. Discs: The patient is again noted to be status post anterior fusion at the C4-C7 level with anterior screw-plate fixation device and susceptibility artifact. This does not appear significant changed. C3 and C4 vertebral body may be partially fused as well with high signal in the disc space. Degenerativ e disc changes are present at C2-3 level. Cord: The sagittal images the cord again appears compressed at the C2-3 level with mildly increased signal. The remainder the cord is normal in size and signal. Post Fossa: The cerebellar tonsils are normal in position. Post Contrast: No abnormal areas of enhancement are seen. C2-C3: Broad-based disc bulge is again noted prominent hypertrophic change involving the facet joint s. Central canal stenosis is again noted without significant change. The cord is compressed centrally . The residual AP diameter of the canal measures approximately 5 mm. This does not appear significant change. The neural foramina are narrowed bilaterally. C3-C4: Stable in appearance. The thecal sac remains preserved and there is CSF posterior to the cord . Mild to moderate narrowing the neural foramina are again noted. C4-C5: Status post anterior fusion. Mild hypertrophic ridging is noted which is unchanged in appeara nce. The thecal sac and cord are unchanged in appearance. There is moderate narrowing of the neural f oramina bilaterally. C5-C6: Status post anterior fusion. Mild hypertrophic ridging is noted. The thecal sac is preserved. The neural foramina remain patent. The findings are unchanged. C6-C7: Status post anterior cervical fusion. The thecal sac is stable in appearance. The neural fora cachorro remain patent. The findings are unchanged. C7-T1: Stable appearance with mild disc bulge and no mass effect on the cord. The neural foramina re main patent. CONCLUSION: 1. Severe spinal stenosis is again noted at the C2-3 level with broad-based disc bulge and hypertrop hic changes involving the facet joints. The AP diameter canal measures approximately 5 mm. The cord i s compressed and demonstrates increased signal. These findings do not appear significantly changed. 2. Status post remote fusion at the C4-5 through C6-7 level which is unchanged in appearance. 3. Partial fusion at C3-4. There is reversal of the normal cervical lordosis. Electronically signed by: Adria Milan MD 04/21/2018 5:29 PM EDT
[2018-04-22] MEDS: Piperacil/Tazo 4.5 GM Premix 4.5 GM/100 ML BAG IV.SIG SCH ×2 (01:43→06:48)
[2018-04-22] MEDS: Sod Chloride 0.9% Inj 1,000 ML IV.CONT SCH ×4 (06:47→22:03)
[2018-04-22] MEDS: carBAMazepine 200 MG Tablet PO SCH ×3 (08:30→18:01)
[2018-04-22] MEDS: Gabapentin 400 MG Capsule PO SCH ×4 (08:30→20:32)
[2018-04-22] MEDS: Indomethacin 25 MG Capsule PO SCH ×3 (08:31→18:01)
[2018-04-22] MEDS: Calcium Carbonate 500 MG Tablet PO SCH ×2 (08:31→20:31)
[2018-04-22] MEDS: Loratadine 10 MG Tablet PO SCH (08:31)
[2018-04-22] MEDS: Morphine Sulfate 30 MG IR Tablet PO SCH ×2 (08:32→20:32)
[2018-04-22] MEDS: Baclofen 10 MG Tablet PO SCH ×4 (08:32→20:31)
[2018-04-22] MEDS: Docusate Sodium 100 MG Capsule PO SCH ×3 (08:36→18:03)
--- NOTE | 2018-04-22 10:01 | P.PNIM ---
Subjective Interval history: Patient is laying down in bed. He says he feels weaker than usual. He does not have any other complaints. Physical Exam Vital signs: Vital Signs 04/21/18 12:00 04/21/18 15:42 04/21/18 16:00 Temperature 98.3 F 98.6 F Pulse Rate 74 74 71 Respiratory Rate 17 18 17 Blood Pressure 158/82 H 161/81 H Pulse Oximetry 96 96 97 04/21/18 19:57 04/21/18 21:18 04/22/18 00:00 Temperature 98.8 F 98.3 F Pulse Rate 76 76 76 Respiratory Rate 18 16 18 Blood Pressure 134/75 152/85 H Pulse Oximetry 96 96 04/22/18 03:37 04/22/18 04:00 04/22/18 08:00 Temperature 98.0 F 97.1 F L Pulse Rate 73 74 69 Respiratory Rate 16 18 18 Blood Pressure 138/79 136/77 Pulse Oximetry 96 96 04/22/18 09:47 Temperature Pulse Rate 87 Respiratory Rate 16 Blood Pressure Pulse Oximetry 95 Intake & Output 04/21/18 04/22/18 04/22/18 18:59 06:59 18:59 Intake Total 1974 / 1974 1380 / 1380 100 / 100 Output Total 2074 1300 / 1300 Balance -100 / -100 80 / 80 100 / 100 Weight 83.8 kg Intake: IV 1350 / 1350 1200 / 1200 100 / 100 NS Inj 1,000 ML @ 75 mls/hr IV. 1000 / 1000 1000 / 1000 CONT .[id number] [facility] Rx#:[id number] Levaquin 750 mg Premix Inj 150 150 / 150 ML @ 100 mls/hr IV.SIG Q24H YOLANDA Rx#:[id number] Zosyn 4.5 GM Premix 4.5 gm In 200 / 200 200 / 200 100 / 100 100 ml @ 200 mls/hr IV.SIG Q6H YOLANDA Rx#:[id number] Oral 625 / 625 180 / 180 Output: Urine 2074 1300 / 1300 Other: Date of Last Bowel Movement 04/20/18 # Bowel Movements 0 Narrative: General patient in no acute distress HEENT extraocular movements are intact, clear oropharyngeal mucosa, no JVD Cardiovascular S1-S2 audible, RRR, no murmurs rubs or gallops Respiratory clear to auscultation bilaterally Abdomen soft, nontender, nondistended, normal bowel sounds Extremities no edema 2+ distal pulses in bilateral upper and lower extremities Neuro patient's right upper and right lower extremity are weaker than the left. Sensation is intact bilaterally. There are no other obvious neurological deficits. - Urinary Catheter Management Indwelling Urethral Catheter Cath placed during this visit: yes Reason for continuing: Hourly intake/output Insertion date: 04/20/18 Insertion time: 06:56 Results - Labs CBC & Chem 7: 04/21/18 03:32 04/21/18 03:32 Microbiology 04/20/18 13:29 Clean Catch Urine Urine Culture - Final No growth in 48 hours 04/20/18 02:00 Blood - Peripheral Aerobic Blood Culture - Preliminary No growth in 1 day 04/20/18 02:00 Blood - Peripheral Anaerobic Blood Culture - Preliminary gram positive cocci 04/20/18 02:05 Blood - Peripheral Aerobic Blood Culture - Preliminary No growth in 1 day 04/20/18 02:05 Blood - Peripheral Anaerobic Blood Culture - Preliminary No growth in 1 day - Imaging Impressions Cervical Spine MRI 04/21/18 00:00 CONCLUSION: 1. Severe spinal stenosis is again noted at the C2-3 level with broad-based disc bulge and hypertrophic changes involving the facet joints. The AP diameter canal measures approximately 5 mm. The cord is compressed and demonstrates increased signal. These findings do not appear significantly changed. 2. Status post remote fusion at the C4-5 through C6-7 level which is unchanged in appearance. 3. Partial fusion at C3-4. There is reversal of the normal cervical lordosis. Assessment and Plan - Assessment (1) Chronic pain Code(s): G89.29 - Status: Acute (2) Depression Code(s): F32.9 - Status: Acute (3) Hyponatremia Code(s): E87.1 - Status: Acute (4) Anemia Code(s): D64.9 - Status: Acute (5) Hyperlipemia Code(s): E78.5 - Status: Acute (6) Pneumonia Code(s): J18.9 - Status: Acute - Plan 67-year-old male with a history of depression, TIA, COPD, documented history of nontraumatic brain hemorrhage. The patient presented to our facility with complaints of weakness and was found to have a left lower lobe pneumonia. 1. Left lower lobe pneumonia Patient is currently on IV Levaquin. Continue Levaquin. We will start to titrate the patient off of supplemental oxygen. He is currently on 3 L of oxygen. He currently is not complaining of a cough, there is no sputum production. Continue breathing treatments as needed. Blood cultures came back positive for gram-positive cocci 1 of 2. We will follow-up the other blood culture. The patient will be changed to an admission as the patient is currently on supplemental oxygen and now has positive blood cultures. He will be started on vancomycin. 2. Hypertension Continue current medications. The patient's blood pressure medications will be adjusted as needed. 3. History of TIA Continue aspirin, statin. (6) Pneumonia Qualifiers: Pneumonia type: due to unspecified organism Laterality: left Lung location: lower lobe of lung Qualified Code(s): J18.1 - Lobar pneumonia, unspecified organism
[2018-04-22] MEDS: Vancomycin Inj 1,000 MG in Sodium Chlor 0.9% Inj 250 ML IV.SIG SCH ×2 (11:34→23:09)
[2018-04-23] MEDS: Baclofen 10 MG Tablet PO SCH ×4 (08:21→22:05)
[2018-04-23] MEDS: carBAMazepine 200 MG Tablet PO SCH ×3 (08:21→17:52)
[2018-04-23] MEDS: Calcium Carbonate 500 MG Tablet PO SCH ×2 (08:21→22:05)
[2018-04-23] MEDS: Docusate Sodium 100 MG Capsule PO SCH ×3 (08:22→17:54)
[2018-04-23] MEDS: Gabapentin 400 MG Capsule PO SCH ×4 (08:22→22:05)
[2018-04-23] MEDS: Morphine Sulfate 30 MG IR Tablet PO SCH ×2 (08:22→22:05)
[2018-04-23] MEDS: Indomethacin 25 MG Capsule PO SCH ×3 (08:22→17:52)
[2018-04-23] MEDS: Loratadine 10 MG Tablet PO SCH (08:22)
[2018-04-23] MEDS: Vancomycin Inj 1,000 MG in Sodium Chlor 0.9% Inj 250 ML IV.SIG SCH ×2 (11:08→23:11)
[2018-04-23] MEDS: Sod Chloride 0.9% Inj 1,000 ML IV.CONT SCH (11:27)
--- NOTE | 2018-04-23 16:27 | P.PNIM ---
Subjective Interval history: Patient currently does not have any significant complaints other than a dry cough. Physical Exam Vital signs: Vital Signs 04/22/18 19:50 04/22/18 20:00 04/22/18 20:45 Temperature 98.1 F Pulse Rate 73 72 72 Respiratory Rate 18 18 Blood Pressure 137/80 Pulse Oximetry 98 99 04/22/18 23:18 04/22/18 23:46 04/23/18 00:00 Temperature 97.6 F Pulse Rate 75 75 Respiratory Rate 18 Blood Pressure 148/80 H Pulse Oximetry 95 95 04/23/18 03:34 04/23/18 03:58 04/23/18 04:00 Temperature 98.2 F Pulse Rate 74 74 71 Respiratory Rate 16 17 Blood Pressure 144/80 H Pulse Oximetry 95 95 04/23/18 07:58 04/23/18 08:27 04/23/18 12:00 Temperature 98.1 F 97.4 F L Pulse Rate 82 80 100 H Respiratory Rate 18 15 18 Blood Pressure 121/77 120/72 Pulse Oximetry 92 L 92 L 93 L 04/23/18 15:34 Temperature Pulse Rate 94 H Respiratory Rate 16 Blood Pressure Pulse Oximetry Intake & Output 04/22/18 04/23/18 04/23/18 18:59 06:59 18:59 Intake Total 1585 / 1585 1837 / 1837 808 / 808 Output Total 800 / 800 2100 / 2100 Balance 785 / 785 -263 / -263 808 / 808 Weight 53.8 kg 87.5 kg Intake: IV 985 / 985 1357 / 1357 808 / 808 NS Inj 1,000 ML @ 75 mls/hr IV. 485 / 485 1107 / 1107 408 / 408 CONT .[id number] YOL[facility] Rx#:[id number] Levaquin 750 mg Premix Inj 150 150 / 150 150 / 150 ML @ 100 mls/hr IV.SIG Q24H YOLANDA Rx#:[id number] Zosyn 4.5 GM Premix 4.5 gm In 100 / 100 100 ml @ 200 mls/hr IV.SIG Q6H YOLANDA Rx#:[id number] Vancomycin Inj 1,000 MG In NS 250 / 250 250 / 250 250 / 250 Inj 250 ML @ 250 mls/hr IV.SIG Q12H YOLANDA Rx#:[id number] Oral 600 / 600 480 / 480 Output: Urine 800 / 800 2100 / 2100 Other: Date of Last Bowel Movement 04/20/18 04/22/18 04/22/18 # Incontinent Bowel Movements 1 Weight On Admission 84.9 kg Narrative: General patient in no acute distress HEENT extraocular movements are intact, clear oropharyngeal mucosa, no JVD Cardiovascular S1-S2 audible, RRR, no murmurs rubs or gallops Respiratory clear to auscultation bilaterally Abdomen soft, nontender, nondistended, normal bowel sounds Extremities no edema 2+ distal pulses in bilateral upper and lower extremities Neuro patient's right upper and right lower extremity are weaker than the left. Sensation is intact bilaterally. There are no other obvious neurological deficits. - Urinary Catheter Management Indwelling Urethral Catheter Cath placed during this visit: yes Reason for continuing: Hourly intake/output Insertion date: 04/20/18 Insertion time: 06:56 Results - Labs CBC & Chem 7: 04/21/18 03:32 04/21/18 03:32 Laboratory Results - last 24 hr 04/20/18 12:15 M. pneumoniae Interp . Mycoplasma pneumon IgG Positive Mycoplasma pneumon IgM Negative Microbiology 04/20/18 02:05 Blood - Peripheral Aerobic Blood Culture - Preliminary No growth in 3 days 04/20/18 02:05 Blood - Peripheral Anaerobic Blood Culture - Preliminary No growth in 3 days 04/20/18 02:00 Blood - Peripheral Aerobic Blood Culture - Preliminary No growth in 3 days 04/20/18 02:00 Blood - Peripheral Anaerobic Blood Culture - Preliminary gram positive cocci 04/22/18 20:05 Stool Stool Occult Blood (EARLENE) - Final Hemoccult negative Assessment and Plan - Assessment (1) Chronic pain Code(s): G89.29 - Other chronic pain Status: Acute (2) Depression Code(s): F32.9 - Major depressive disorder, single episode, unspecified Status : Acute (3) Hyponatremia Code(s): E87.1 - Hypo-osmolality and hyponatremia Status: Acute (4) Anemia Code(s): D64.9 - Anemia, unspecified Status: Acute (5) Hyperlipemia Code(s): E78.5 - Hyperlipidemia, unspecified Status: Acute (6) Pneumonia Code(s): J18.9 - Pneumonia, unspecified organism Status: Acute - Plan 67-year-old male with a history of depression, TIA, COPD, documented history of nontraumatic brain hemorrhage. The patient presented to our facility with complaints of weakness and was found to have a left lower lobe pneumonia. 1. Left lower lobe pneumonia Patient is currently on IV Levaquin. Continue Levaquin. Patient was titrated off of supplemental oxygen. He is currently on room air without any complaints of shortness of breath. He currently is not complaining of a cough, there is no sputum production. Continue breathing treatments as needed. Blood cultures came back positive for gram-positive cocci 1 of 2. We will follow-up the other blood culture. Repeat blood cultures order and infectious disease consulted. Continue antibiotics. 2. Hypertension Continue current medications. The patient's blood pressure medications will be adjusted as needed. 3. History of TIA Continue aspirin, statin. (6) Pneumonia Qualifiers: Pneumonia type: due to unspecified organism Laterality: left Lung location: lower lobe of lung Qualified Code(s): J18.1 - Lobar pneumonia, unspecified organism
[2018-04-23 17:45] VITALS: RESP 18
[2018-04-24] MEDS: Sod Chloride 0.9% Inj 1,000 ML IV.CONT SCH (05:43)
[2018-04-24 06:13] LABS: Baso # (Auto) 0.1 th/mm3 (0.0-0.2); Baso % (Auto) 0.9 % (0.0-2.0); Eos # (Auto) 0.3 th/mm3 (0.0-0.4); Eos % (Auto) 4.4 % (0.0-4.0); Hematocrit 36.4 % (39.0-51.0); Hemoglobin 12.3 gm/dL (13.0-17.0); Lymph # (Auto) 1.3 th/mm3 (1.0-4.8); Lymph % (Auto) 20.5 % (9.0-44.0); Mean Corpuscular HGB Conc 33.7 % (32.0-36.0); Mean Corpuscular Volume 88.9 fL (80.0-100.0); Mean Platelet Volume 7.8 fL (7.0-11.0); Mono # (Auto) 0.4 th/mm3 (0.0-0.9); Mono % (Auto) 6.7 % (0.0-8.0); Neut # (Auto) 4.3 th/mm3 (1.8-7.7); Neut % (Auto) 67.5 % (16.0-70.0); Platelet Count 194 th/mm3 (150-450); Red Cell Distribution Width 13.5 % (11.6-17.2); White Blood Count 6.3 th/mm3 (4.0-11.0)
[2018-04-24 06:29] LABS: Anion Gap 7 meq/L (5-15); Blood Urea Nitrogen 14 mg/dL (7-18); Calcium 8.3 mg/dL (8.5-10.1); Carbon Dioxide 30.5 meq/L (21.0-32.0); Chloride 101 meq/L (98-107); Glomerular Filtration Rate Greater Than 89 mL/min (>89); Glucose,Random 92 mg/dL (74-106); Magnesium 1.6 mg/dL (1.5-2.5); Potassium 3.9 meq/L (3.5-5.1); Sodium 138 meq/L (136-145)
--- NOTE | 2018-04-24 09:19 | P.DS ---
Date of admission: 04/20/18 05:09 Primary care physician: UNKNOWN Brief History from admission: This is a 67-year-old CM with PMHx of Depression, TIA, and Chronic Pain was brought to the ED from [facility] for generalized malaise and weakness x1 day with SOB and dry cough. Patient reports that he has chronic pain at baseline but that he is able to walk with a walker. Patient lives at an [facility] ) and reports that he gets some assistance with ADL's at baseline but can feed himself. Patient denies recent illness and sick contacts. Patient reports Chronic Back pain s/p surgery that he sees pain mgmt for, Dr. smith. Patient also has a PCP that he sees regularly. Patient denies chest pain, focal weakness , fever, and chills. DS: Diagnosis - Discharge Diagnosis (1) Chronic pain Status: Acute (2) Depression Status: Acute (3) Hyponatremia Status: Acute (4) Anemia Status: Acute (5) Hyperlipemia Status: Acute (6) Pneumonia Status: Acute DS: Medications - Discharge Medications Prescriptions: levofloxacin 750 mg PO DAILY 3 Days #3 tab DS: Summary Hospital Course: 67-year-old male with a history of depression, TIA, COPD, documented history of nontraumatic brain hemorrhage. The patient presented to our facility with complaints of weakness, a cough and was found to have a left lower lobe pneumonia on imaging. 1. Acute hypoxic respiratory failure secondary to left lower lobe pneumonia As stated above the patient was found to have a left lower lobe pneumonia on chest x-ray. He was found to be hypoxic on pulse oximetry and was started on supplemental oxygen. Supplemental oxygen was tapered off and he is currently on room air without any complaints of shortness of breath. He was started on IV antibiotics with Levaquin. He has received Levquin while inpt. Continue 2 more days of p.o. Levaquin. The patient initially had 1 of 2 sets of blood cultures which were positive for GPC this was likely contaminant. Patient is afebrile normal WBC count. Infectious disease evaluated the patient and also believes this is a contaminant. The patient will be discharged to [facility] care home facility today and will be continued with rehab. 2. Patient is a diagnosis of hypertension. Continue the current medications. His blood pressure medications can be adjusted as needed. 3. History of TIA Continue aspirin, statin. 4. COPD Continue inhalers as needed. Patient is currently on room air with no complaints of shortness of breath. 5. Chronic pain Continue pain medications as needed. - Time Spent with Patient Total time spent providing and/or coordinating discharge services: Less than 30 minutes - Quality: VTE Deep Vein Thrombosis/Pulmonary Embolism Present on Admission: No Exam Vital signs: Vital Signs 04/23/18 12:00 04/23/18 15:34 04/23/18 16:00 Temperature 97.4 F L 98.1 F Pulse Rate 100 H 94 H 87 Respiratory Rate 18 16 18 Blood Pressure 120/72 104/61 Pulse Oximetry 93 L 94 L 04/23/18 20:00 04/23/18 21:15 04/24/18 00:00 Temperature 98.0 F 99.1 F Pulse Rate 83 88 84 Respiratory Rate 18 18 18 Blood Pressure 126/70 132/73 Pulse Oximetry 94 L 94 L 04/24/18 04:00 Temperature 98.9 F Pulse Rate 79 Respiratory Rate 18 Blood Pressure 137/76 Pulse Oximetry 92 L Intake & Output 04/23/18 04/24/18 04/24/18 18:59 06:59 18:59 Intake Total 1628 / 1628 1000 / 1000 Output Total 1481 / 1481 550 / 550 Balance 147 / 147 450 / 450 Weight 90 kg Intake: IV 808 / 808 1000 / 1000 NS Inj 1,000 ML @ 75 mls/hr IV. 408 / 408 1000 / 1000 CONT .[id number] YOLANDA Rx#:[id number] Levaquin 750 mg Premix Inj 150 150 / 150 ML @ 100 mls/hr IV.SIG Q24H YOLANDA Rx#:[id number] Vancomycin Inj 1,000 MG In NS 250 / 250 Inj 250 ML @ 250 mls/hr IV.SIG Q12H YOLANDA Rx#:[id number] Oral 820 / 820 Output: Urine 1480 / 1480 550 / 550 Stool Other: Date of Last Bowel Movement 04/22/18 04/22/18 # Incontinent Bowel Movements 1 Narrative: General patient in no acute distress HEENT extraocular movements are intact, clear oropharyngeal mucosa, no JVD Cardiovascular S1-S2 audible, RRR, no murmurs rubs or gallops Respiratory clear to auscultation bilaterally Abdomen soft, nontender, nondistended, normal bowel sounds Extremities no edema 2+ distal pulses in bilateral upper and lower extremities Neuro patient's right upper and right lower extremity are weaker than the left. Sensation is intact bilaterally. There are no other obvious neurological deficits. Results Procedures completed during hospitalization: none Labs on day of discharge: Labs from last 24 hours 04/24/18 04/24/18 04/20/18 05:43 05:43 12:15 WBC 6.3 RBC 4.10 L Hgb 12.3 L Hct 36.4 L MCV 88.9 MCH 30.0 MCHC 33.7 RDW 13.5 Plt Count 194 MPV 7.8 Neut % (Auto) 67.5 Lymph % (Auto) 20.5 Cascade % (Auto) 6.7 Eos % (Auto) 4.4 H Baso % (Auto) 0.9 Neut # (Auto) 4.3 Lymph # (Auto) 1.3 Cascade # (Auto) 0.4 Eos # (Auto) 0.3 Baso # (Auto) 0.1 WBC Differential . Differential Comment Auto diff final Sodium 138 Potassium 3.9 Chloride 101 Carbon Dioxide 30.5 Anion Gap 7 BUN 14 Creatinine 0.65 Estimated GFR Greater than 89 Random Glucose 92 Calcium 8.3 L Magnesium 1.6 M. pneumoniae Interp . Mycoplasma pneumon IgG Positive Mycoplasma pneumon IgM Negative Preliminary micro results at discharge 04/20/18 02:05 Aerobic Blood Culture - Preliminary Blood - Peripheral No growth in 3 days Anaerobic Blood Culture - Preliminary No growth in 3 days 04/20/18 02:00 Aerobic Blood Culture - Preliminary Blood - Peripheral No growth in 3 days Anaerobic Blood Culture - Preliminary gram positive cocci - Impressions ITS Impressions Chest X-Ray 04/20/18 01:37 CONCLUSION: Suspected mild atelectasis or consolidation at the left base. Head CT 04/20/18 01:37 CONCLUSION: No acute intracranial abnormality is seen. . Cervical Spine MRI 04/21/18 00:00 CONCLUSION: 1. Severe spinal stenosis is again noted at the C2-3 level with broad-based disc bulge and hypertrophic changes involving the facet joints. The AP diameter canal measures approximately 5 mm. The cord is compressed and demonstrates increased signal. These findings do not appear significantly changed. 2. Status post remote fusion at the C4-5 through C6-7 level which is unchanged in appearance. 3. Partial fusion at C3-4. There is reversal of the normal cervical lordosis. Discharge Plan - Discharge Disposition Patient Disposition: Discharge to SNF - Discharge Condition Condition: Good - Discharge Order Discharge Orders: Discharge Order (Routine); Ordered 04/24/18 Ordered By: Noel Brothers - Discharge Details Discharge Comment: Do not discharge the patient until Infectious Disease has seen him and clears him. - Physicians Team Primary Care Provider: UNKNOWN, Attending Provider: Noel Brothers Other Providers: Clarence Taylor ; Evelyne Lua MD
[2018-04-24 09:33] VITALS: BP 133/70; TEMP 97.8; O2SAT 94
[2018-04-24] MEDS: Gabapentin 400 MG Capsule PO SCH (10:02)
[2018-04-24] MEDS: Calcium Carbonate 500 MG Tablet PO SCH (10:03)
[2018-04-24] MEDS: Morphine Sulfate 30 MG IR Tablet PO SCH (10:03)
[2018-04-24] MEDS: Docusate Sodium 100 MG Capsule PO SCH (10:03)
[2018-04-24] MEDS: Loratadine 10 MG Tablet PO SCH (10:03)
[2018-04-24] MEDS: carBAMazepine 200 MG Tablet PO SCH (10:04)
[2018-04-24] MEDS: Baclofen 10 MG Tablet PO SCH (10:04)
--- NOTE | 2018-04-24 10:04 | P.CONID ---
History of Present Illness Service: Infectious disease Consult date: 04/24/18 Requesting Physician: Paige Alvares Reason for Consult: Evaluate patient with positive blood culture Primary Care Provider: UNKNOWN Chief Complaint: weakness History of Present Illness: Patient seen and examined. Records reviewed. Patient is a 67-year-old male, who resides in an [place], brought into the hospital for generalized malaise and weakness of 1 day. There is also mention that he has had some shortness of breath and dry cough. Patient has a chronic pain and as a baseline he can do some steps using a walker and most of the time he is in a motorized chair. He denies any episode or choking. He does have to swallow carefully because he states he is throat does not open up that much since after he had his neck surgery. Patient has been on antibiotics for pneumonia. He is clinically doing well. No fever since admission. WBC is normal. 1 out of 2 blood culture is growing coag negative staph. Infectious disease consultation has been requested to make some recommendation regarding the positive blood culture. Review of Systems Constitutional: Reports lack of energy, Reports weakness, Denies chills, Denies fever(s) Eyes: Denies discharge, Denies dry eyes Ears, Nose, Mouth, and Throat: Reports difficulty swallowing, Denies dry mouth, Denies nasal discharge, Denies sore throat Cardiovascular: Denies chest pain, Denies shortness of breath Respiratory: Reports cough, Denies chest congestion, Denies shortness of breath Gastrointestinal: Reports difficulty swallowing, Denies abdominal pain, Denies loose stools, Denies nausea, Denies vomiting Genitourinary: Denies painful urination Musculoskeletal: Reports muscle weakness Skin/Breast: Denies rash, Denies sores PMFSH - History History Provided By: Patient - Medical History Medical History: Medical History (Last Reviewed 04/24/18 @ 10:00 by Evelyne Lua MD) COPD (chronic obstructive pulmonary disease) Depression Neuropathy TIA (transient ischemic attack) - Surgical History Surgical History: Surgical History (Last Reviewed 04/24/18 @ 10:00 by Evelyne Lua MD) History of orthopedic surgery - Family History Family History: Family History (Last Reviewed 04/24/18 @ 10:00 by Evelyne Lua MD) Other Family history normal - Tobacco History Second Hand Smoke Exposure: No Smoking Status: Former smoker - Alcohol History How Often Do You Have a Drink Containing Alcohol: Never - Substance Use History Substance History: No History of Abuse - Travel History Recent Travel in the [place] Within the Last 8 Weeks: No Recent Travel Out of the Country Within the Last 8 Weeks: No - Immunization History Tetanus Immunization: Unsure Hx Influenza Vaccine This Season: No Medications and Allergies Active Medications: Active Medications Hydrocodone Bitart/Acetaminophen (Dillon 7.5/325) 1 tab PO Q4H PRN PRN Reason: PAIN 1-10 Last Admin: 04/24/18 06:43 Dose: 1 tab Al Hydroxide/Mg Hydroxide (Milk Of Magnmac Liq) 30 ml PO Q12H PRN PRN Reason: Mild Constipation Albuterol (Albuterol Neb (Prn)) 2.5 mg NEB Q2HR NEB PRN PRN Reason: SHORTNESS OF BREATH Albuterol (Ventolin Hfa Inh) 2 puff INH Q4H PRN PRN Reason: Shortness Of Breath Aspirin (Ecotrin) 81 mg PO DAILY [facility] Last Admin: 04/23/18 08:22 Dose: 81 mg Atorvastatin Calcium (Lipitor) 80 mg PO DAILY [facility] Last Admin: 04/23/18 08:21 Dose: 80 mg Baclofen (Lioresal) 10 mg PO QID [facility] Last Admin: 04/23/18 22:05 Dose: 10 mg Calcium Carbonate (Oscal) 500 mg PO BID [facility] Last Admin: 04/23/18 22:05 Dose: 500 mg Carbamazepine (Tegretol) 400 mg PO TID [facility] Last Admin: 04/23/18 17:52 Dose: 400 mg Docusate Sodium (Colace) 100 mg PO TID [facility] Last Admin: 04/23/18 17:54 Dose: Not Given Duloxetine HCl (Cymbalta) 30 mg PO DAILY [facility] Last Admin: 04/23/18 08:22 Dose: 30 mg Fluticasone Propionate (Flonase Nasal [place]) 1 spray EACH NARE DAILY [facility]; Protocol Last Admin: 04/23/18 08:23 Dose: 1 spray Gabapentin (Neurontin) 800 mg PO QID [facility] Last Admin: 04/23/18 22:05 Dose: 800 mg Heparin Sodium (Porcine) (Heparin Inj) 5,000 units SQ Q8HR [facility] Sodium Chloride (Ns Inj) 1,000 mls @ 75 mls/hr IV.CONT .[id number] [facility] Last Admin: 10/03/18 05:43 Dose: 75 mls/hr Levofloxacin/Dextrose (Levaquin 750 Mg Premix Inj) 150 mls @ 100 mls/hr IV.SIG Q24H [facility] Stop: 04/24/18 14:00 Last Infusion: 04/23/18 15:51 Dose: Infused Vancomycin HCl 1,000 mg/ (Sodium Chloride) 250 mls @ 250 mls/hr IV.SIG Q12H [facility] Last Admin: 04/23/18 23:11 Dose: 250 mls/hr Magnesium Sulfate 2 gm/ Sodium (Chloride) 100 mls @ 50 mls/hr IV.SIG ONCE ONE Stop: 04/24/18 12:59 Indomethacin (Indocin) 50 mg PO TID [facility] Last Admin: 04/23/18 17:52 Dose: 50 mg Ipratropium [place] (Atrovent Neb) 0.5 mg NEB Q6HR NEB [facility] Last Admin: 04/24/18 09:29 Dose: 0.5 mg Lactulose (Lactulose Liq) 30 ml PO DAILY PRN PRN Reason: SEVERE CONSITIPATION Levofloxacin (Levaquin) 750 mg PO DAILY [facility] Loratadine (Claritin) 10 mg PO DAILY [facility] Last Admin: 04/23/18 08:22 Dose: 10 mg Morphine Sulfate (Msir) 30 mg PO BID [facility] Last Admin: 04/23/18 22:05 Dose: 30 mg Ondansetron HCl (Zofran Inj) 4 mg IV.PUSH Q6H PRN PRN Reason: NAUSEA OR VOMITING Patient Own Medication[Lamisil Af (Terbinafine)] 0 each TOPICAL BID [facility] Sodium Chloride (Ns Flush) 2 ml IV.FLUSH BID [facility] Last Admin: 04/23/18 22:06 Dose: 2 ml Sodium Chloride (Ns Flush) 2 ml IV.FLUSH PRN PRN PRN Reason: FLUSH AFTER USING IV ACCESS Vitamin D (Vitamin D3) 2,000 unit PO DAILY [facility] Last Admin: 04/23/18 08:22 Dose: 2,000 unit Allergies Allergy/AdvReac Type Severity Reaction Status Date / Time No Known Allergies Allergy Uncoded 05/18/17 12:37 Home Medications Medication Instructions Recorded Confirmed Type albuterol sulfate [Ventolin HFA] 2 puff INHALATION Q4-6H PRN 04/20/18 04/20/18 History aspirin [Aspir-81] 81 mg PO DAILY 04/20/18 04/20/18 History atorvastatin [Lipitor] 80 mg PO DAILY 04/20/18 04/20/18 History baclofen 10 mg PO QID 04/20/18 04/20/18 History calcium carbonate [Calcium 600] 600 mg PO BID 04/20/18 04/20/18 History carbamazepine [Tegretol] 400 mg PO TID 04/20/18 04/20/18 History cholecalciferol (vitamin D3) 2,000 unit PO DAILY 04/20/18 04/20/18 History [Vitamin D3] docusate sodium 100 mg PO TID 04/20/18 04/20/18 History duloxetine 30 mg PO DAILY 04/20/18 04/20/18 History fluticasone [Flonase Allergy See Protocol INTRANASAL DAILY 04/20/18 04/20/18 History Relief] gabapentin 800 mg PO QID 04/20/18 04/20/18 History hydrocodone-acetaminophen 1 tab PO Q4-6H PRN 04/20/18 04/20/18 History hydrocodone-acetaminophen [Dillon] 1 tab PO Q4-6H PRN 04/20/18 04/20/18 History indomethacin 50 mg PO TID 04/20/18 04/20/18 History loratadine [Claritin] 10 mg PO DAILY 04/20/18 04/20/18 History menthol [Biofreeze (menthol)] 1 applicatio TOPICAL BID 04/20/18 04/21/18 History morphine 30 mg PO BID 04/20/18 04/20/18 History polyethylene glycol 3350 [Miralax] 17 g PO DAILY 04/20/18 04/20/18 History sennosides-docusate sodium 1 tab PO BID PRN 04/20/18 04/20/18 History [Senokot-S] terbinafine HCl [Lamisil AT] 1 applic TOPICAL BID 04/20/18 04/20/18 History Exam Vital signs: Vital Signs 04/23/18 12:00 04/23/18 15:34 04/23/18 16:00 Temperature 97.4 F L 98.1 F Pulse Rate 100 H 94 H 87 Respiratory Rate 18 16 18 Blood Pressure 120/72 104/61 Pulse Oximetry 93 L 94 L 04/23/18 20:00 04/23/18 21:15 04/24/18 00:00 Temperature 98.0 F 99.1 F Pulse Rate 83 88 84 Respiratory Rate 18 18 18 Blood Pressure 126/70 132/73 Pulse Oximetry 94 L 94 L 04/24/18 04:00 04/24/18 08:00 Temperature 98.9 F 97.8 F Pulse Rate 79 76 Respiratory Rate 18 Blood Pressure 137/76 133/70 Pulse Oximetry 92 L 94 L Intake & Output 04/23/18 04/24/18 04/24/18 18:59 06:59 18:59 Intake Total 1628 / 1628 1000 / 1000 Output Total 1481 / 1481 550 / 550 Balance 147 / 147 450 / 450 Weight 90 kg Intake: IV 808 / 808 1000 / 1000 NS Inj 1,000 ML @ 75 mls/hr IV. 408 / 408 1000 / 1000 CONT .[id number] [facility] Rx#:[id number] Levaquin 750 mg Premix Inj 150 150 / 150 ML @ 100 mls/hr IV.SIG Q24H [facility] Rx#:[id number] Vancomycin Inj 1,000 MG In NS 250 / 250 Inj 250 ML @ 250 mls/hr IV.SIG Q12H [facility] Rx#:[id number] Oral 820 / 820 Output: Urine 1480 / 1480 550 / 550 Stool Other: Date of Last Bowel Movement 04/22/18 04/22/18 # Incontinent Bowel Movements 1 Narrative: Physical Examination GENERAL: Patient is a well-nourished, well-developed male, awake and alert, not in respiratory distress. SKIN: Cool and dry. No generalized rash, no ecchymoses and no evidence of embolic lesions. HEAD: Atraumatic. Normocephalic. No temporal wasting, or tenderness. EYES: [place] conjunctiva. No petechia or hemorrhage. Pupils equal, round and reactive to light. Extraocular movements full and intact. No scleral icterus. No injection or drainage. EARS, NOSE AND THROAT: Nose without bleeding or purulent nasal discharge. No sinus tenderness. Mucous membranes pink and moist. No oral lesions noted. No exudate. No oral thrush. NECK: Trachea midline. Supple and not tender, no meningeal signs CARDIOVASCULAR: Regular rate and rhythm. No murmurs, rubs or gallops heard RESPIRATORY: Clear to auscultation. Breath sounds equal bilaterally. No rales , wheezing or rhonchi. Decreased at bases ABDOMEN: Soft, non-tender, nondistended. Bowel sounds present and normoactive. No guarding. No rebound. No organomegaly. EXTREMITIES: No clubbing, cyanosis, or edema. No joint effusion, has good ROM. No calf tenderness. Well perfused and warm. Has some chronic skin changes both legs NEUROLOGICAL: Awake and alert. No facial symmetry. Tongue mildly deviated to R. RUE and RLE weaker compared to the L side PSYCHIATRIC: Normal affect, calm and cooperative. LINE: No evidence of infection Results - Labs CBC & Chem 7: 04/24/18 05:43 04/24/18 05:43 Labs: Laboratory Results - last 24 hr 04/20/18 04/24/18 04/24/18 12:15 05:43 05:43 WBC 6.3 RBC 4.10 L Hgb 12.3 L Hct 36.4 L MCV 88.9 MCH 30.0 MCHC 33.7 RDW 13.5 Plt Count 194 MPV 7.8 Neut % (Auto) 67.5 Lymph % (Auto) 20.5 [place] % (Auto) 6.7 Eos % (Auto) 4.4 H Baso % (Auto) 0.9 Neut # (Auto) 4.3 Lymph # (Auto) 1.3 [place] # (Auto) 0.4 Eos # (Auto) 0.3 Baso # (Auto) 0.1 WBC Differential . Differential Comment Auto diff final Sodium 138 Potassium 3.9 Chloride 101 Carbon Dioxide 30.5 Anion Gap 7 BUN 14 Creatinine 0.65 Estimated GFR Greater than 89 Random Glucose 92 Calcium 8.3 L Magnesium 1.6 M. pneumoniae Interp . Mycoplasma pneumon IgG Positive Mycoplasma pneumon IgM Negative Assessment and Plan - Plan Impression Pneumonia One (+) BC Coag Neg Staph C/W contaminant Weakness, slightly better Recommendation No Rx needed for the (+) BC Complete PNA Rx with levaquin - at least 7 days He is clinically stable from ID standpoint D/W RN Explained plan to the patient D/W Dr Brothers ([facility])
[2018-04-24] MEDS: Indomethacin 25 MG Capsule PO SCH (10:05)
[2018-04-24] MEDS ORDERED: Magnesium Sulfate Inj 2 GM in Sodium Chlor 0.9% Inj 96 ML IV.SIG ONE (11:00)
[2018-04-24 11:59] VITALS: PULSE 75
[2018-04-24] MEDS ORDERED: Heparin - SQ 10,000 UNITS/ML Vial SQ SCH (14:00)
[2018-04-25] MEDS ORDERED: levoFLOXacin 750 MG Tablet PO SCH (09:00)
== END 2018-04-24 12:35 ==
LOC: NEPE 22:39 → NEDA 04-20 05:09 → N07 04-20 07:38
PROVIDERS: ADMIT Hospitalist; ATTEND Hospitalist